=== PATIENT | male | born 1950 | race Caucasian/White ===

== ENCOUNTER → 2019-12-25 14:04 | Outpatient (BNVA) | payer MEDICARE, SELFPAY | PROVIDERS: Family Provider Internal Medicine; PCP Internal Medicine; Visit Provider Nurse Practitioner Family | DX: J44.1 Chronic obstructive pulmonary disease with (acute) exacerbation (principal) | CPT/HCPCS: 71046 ==

== ENCOUNTER 2020-01-01 09:50 | Outpatient (CLI) | payer MEDICARE, SELFPAY ==
[2020-01-01 11:43] LABS: Basophils % 0.3 %; Eosinophils % 0.3 %; Hematocrit 41.6 % (42.0-52.0); Hemoglobin 13.2 g/dL (11.7-16.6); Lymphocytes # 0.8 10^3/uL (0.8-4.8); Lymphocytes % 9.2 %; Mean Corpuscular HGB Conc 31.7 g/dL (30.0-36.0); Mean Corpuscular Hemoglobin 27.4 pg (28.0-34.0); Mean Corpuscular Volume 86.3 fL (80-94); Monocytes # 1.2 10^3/uL (0.2-0.9); Monocytes % 13.1 %; Neutrophils # 6.3 10^3/uL (1.8-7.7); Neutrophils % 69.6 %; Nucleated Red Blood Cells % 0 %; Platelet Count 290 10^3/cmm (130-400); Red Blood Count 4.82 10^6/uL (4.1-5.3); White Blood Count 9.1 10^3/uL (4.0-10.0)
[2020-01-01 12:20] LABS: Slide Review Slide Review Perform
[2020-01-01 12:22] LABS: Absolute Segmented Neutrophil 5.5 10/cmm (1.6-7.1); Band Neutrophils Absolute 0.7 10^3/cmm (0.0-1.2); Basophils Absolute 0.1 10^3/cmm (0.0-0.2); Giant Platelets Trace; Lymphocytes 15 %; Platelet Estimate Normal (Normal); Segmented Neutrophils 61 %; Total Cells Counted 100 (0-100)
[2020-01-01 13:07] LABS: Ferritin 34 ng/mL (30-400); Iron 44 ug/dL (59-158); Percent Saturation 14.5 % (20-50); Total Iron Binding Capacity 302 mcg/dl; Unsaturated Iron Binding 258 ug/dL (112-347); Vitamin B12 467 pg/mL (232-1245)
== END 2020-01-01 09:51 | disposition home or self-care (01) ==
LOC: ONCMED 14:02
PROVIDERS: Family Provider Internal Medicine; PCP Internal Medicine; Visit Provider Internal Medicine Hematology & Oncology
DX: D50.9 Iron deficiency anemia, unspecified (principal)
CPT/HCPCS: 82607; 82728; 83540; 83550; 85007; 85025

== ENCOUNTER 2020-01-02 09:05 | Outpatient (CLI) | payer MEDICARE, SELFPAY ==
--- NOTE | 2020-01-02 11:24 | ONC FU_ITS ---
Dr. Guerin follow up note Patient: Mihai Jones Unit #: [id number]: 1950 Dicatated By: Pa Guerin M.D.Date of Visit:Jan 02, 2020 Onc Med Follow-up/Prog Note History of Present Illness: Mr. Mihai Jones , 69-year-old gentleman with long-standing history of anemia. As as per Mr. Jones when he was 17-year-old when he passed out while throwing up coffee-ground material and also noticed black tarry stools. he did require blood transfusion and underwent 'stomach surgery at age 19 and since then he had issues with adhesions and a has been taking B12 supplements, off and on problem with indigestion and digestion He underwent colonoscopy year ago at [facility] and he was told everything was normal and he will return to clinic for next colonoscopy in 10 years. s/p 2 doses of Injectafer With excellent response And single dose Injectafer infusion on 03/24/2019 Came for follow-up, denies any specific complaints except generalized weakness and fatigue, and not gaining weight., No melena or hematochezia, no nausea or vomiting, no jaundice, no hemoptysis or hematemesis. Smoke about pack to 2 packs a day. No peripheral numbness.no fever or chills, no night sweats . Medications: Depakote ER 1 (500 mg) Tablet SR 24 HR Oral b.i.d., Gabapentin 1 (300 mg) Capsule Oral t.i.d., Lisinopril 1 (20 mg) Tablet Oral daily, Naproxen 1 (500 mg) Tablet Oral b.i.d., Nortriptyline HCl 1 Capsule (of 25 mg) Oral at bedtime, Pristiq 1 (100 mg) Tablet SR 24 HR Oral daily, Tamsulosin HCl 1 (0.4 mg) Capsule Oral at bedtime Allergies: No Known Allergies. Review of Systems: Constitutional - Appetite is poor and weight is decreasing. No fever, chills. Patient has occasional hot flashes and night sweats. Energy level is poor, ENMT - No sinus congestion/drainage. No mouth sores. No sore throat or difficulty swallowing, Hematologic/Lymphatic - No abnormal bleeding. Patient states he bruises very easily, Respiratory - Shortness of breath with exertion. Nonproductive cough. No pleuritic pain or hemoptysis, Cardiovascular - No angina pain. No palpitations, Gastrointestinal - No nausea or vomiting. Occasional heartburn or acid reflux. Occasional diarrhea, no constipation. No blood in the stool or black stools, Genitourinary (M) - No dysuria or hematuria. No urinary frequency. No urgency or incontinence, Musculoskeletal - Pt reports back pain, Integumentary - No skin complaints today, Neurologic - No headache, occasional dizziness upon rising. No numbness/paresthesias or other focal neurologic symptoms, Psychiatric - No anxiety or depression. No insomnia. Vital Signs: Vitals are not available for this patient. Performance Status: 0 - Fully active, able to carry on all predisease activities without restrictions. (ECOG) Physical Examination: ENMT - . No oral exudates, ulcers, masses, thrush or mucositis. Oropharynx clear. Tongue normal, Respiratory - Lungs are clear to auscultation without rhonchi or wheezing, Cardiovascular - Regular rate and rhythm of heart, Abdomen - Non-tender, non-distended, Good bowel sounds. No guarding or rebound tenderness. No pulsatile masses, Extremities - no edema. Lab/Imaging: Test performed on Jan 01, 2020 09:50 Ferritin 34 ng/mL Iron 44 ug/dL Vitamin B12 467 pg/mL UIBC 258 ug/dL WBC 9.1 10 3/uL Manual Bands % 8.0 % RBC 4.82 10 6/uL HGB 13.2 g/dL Manual Lymphs % 15 % HCT 41.6 % Manual Monos % 11.0 % MCV 86.3 fL MCH 27.4 pg Manual Basos % 1.0 % MCHC 31.7 g/dL Metamyelocytes % 2.0 % RDW 14.0 % Myelocytes % 2.0 % Platelet Count 290 10 3/cmm MPV 11.0 fL Neutrophils 6.3 10 3/uL Lymphocytes 0.8 10 3/uL Monocytes 1.2 10 3/uL Eosinophils 0.0 10 3/uL Basophils 0.0 10 3/uL Neutrophil % 69.6 % Lymphocyte % 9.2 % Monocyte % 13.1 % Eosinophil % 0.3 % Basophils % 0.3 % CBC Slide Review Slide Review Perform Manual Bands Abs 0.7 10 3/cmm Manual Monocytes Abs 1.0 10 3/cmm Manual Basophils Abs 0.1 10 3/cmm Test performed on Sep 05, 2019 10:04 % Iron Saturation 21.7 % Impression: 1. 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 Weight loss probably due to malabsorption or dumping syndrome, advised small meals but more ofte 3, COPD, heavy smoking Plan: Discussed with patient regarding his labs white blood count 9.1 hemoglobin 13.2 crit 41.6 platelets 290,000 MCV 86.3 ferritin 34 iron 44 vitamin B12 467 Clinically, patient is doing well with no new signs symptoms his follow-up lab shows hemoglobin still in normal range and iron on the low side of normal range. Patient is a heavy smoker, has possibility of secondary polycythemia due to smoking along with iron deficiency due to malabsorption due to subtotal gastrectomy At this point his hemoglobin in normal range and iron is stable the lower side of normal will continue to monitor if there is a drop in his hemoglobin we'll consider Injectafer otherwise continue to monitor patient is on sublingual B12 supplement at home. As far as not gaining weight is concern patient was advised to take small meals but more often and do calorie count,. Return to clinic in 3 months with CBC iron studies B12 and folic acid level. Patient was also advised to quit smoking and was offered any assistance he may need. Signed By: Pa Guerin M.D. <<Signature on File>>
== END 2020-01-02 09:06 | disposition home or self-care (01) ==
LOC: ONCMED 09:05
PROVIDERS: Family Provider Internal Medicine; PCP Nurse Practitioner; Visit Provider Internal Medicine Hematology & Oncology
DX: D50.9 Iron deficiency anemia, unspecified (principal); J44.9 Chronic obstructive pulmonary disease, unspecified; F17.210 Nicotine dependence, cigarettes, uncomplicated; K91.1 Postgastric surgery syndromes; K91.2 Postsurgical malabsorption, not elsewhere classified; Z79.899 Other long term (current) drug therapy; Z87.11 Personal history of peptic ulcer disease
CPT/HCPCS: G0463

== ENCOUNTER 2020-02-07 22:52 | Inpatient (IN) | payer MEDICARE, SELFPAY ==
[2020-02-07 22:53] VITALS: BP 164/126; PULSE 138; RESP 40; O2SAT 95; BMI 21.7
[2020-02-07 22:55] VITALS: TEMP 37.4
--- NOTE | 2020-02-07 23:03 | XRR_ITS ---
PROCEDURE INFORMATION: Exam: XR Chest, 1 View Exam date and time: 02/07/2020 11:05 PM Age: 69 years old Clinical indication: Dyspnea; Additional info: SOB TECHNIQUE: Imaging protocol: XR of the chest Views: 1 view. COMPARISON: CR XR chest 2V* [id number] 12/25/2019 2:04 PM FINDINGS: Lungs: There are increased interstitial markings present bilaterally, an interstitial pneumonitis or bronchitis cannot be excluded. Pleural space: Unremarkable. No pleural effusion. No pneumothorax. Heart/Mediastinum: Unremarkable. No cardiomegaly. Bones/joints: Status post total left shoulder replacement. Degenerative changes seen within the right glenohumeral joint. XR/XR chest 1V portable [id number] IMPRESSION: There are some increased interstitial markings present bilaterally, findings could represent an interstitial pneumonitis or bronchitis .
--- NOTE | 2020-02-07 23:04 | ECG_ITS ---
Measurements Intervals [place] Rate: 132 P: [place]: 0 QRS: 27 QRSD: 78 T: 43 QT: 310 QTc: 460 Artifact cannot interpret the exam Electronically Signed On 02-08-2020 21:10:51 CDT by Floyd Palomo M.D. [id number]
--- NOTE | 2020-02-07 23:06 | W.ED.SOB ---
HPI - SOB/Dyspnea General: Chief Complaint: Shortness of Breath/Dyspnea Stated Complaint: RESP DIS Time Seen by Provider: 02/07/20 22:53 History of Present Illness: MD elicited complaint: shortness of breath and cough Pertinent past history: COPD Onset (ago): day(s) Context: recent illness Timing: constant and progressively worsening Severity: severe Exacerbating factors: exertion Relieving factors: nothing Known history of: COPD Associated symptoms: Reports chest congestion, cough and fever(s); Deny chest pain, dizziness or vomiting Treatment prior to arrival: oxygen and bronchodilator Review of Systems Const: Reports: fever Eyes: Denies: change in vision or blurry vision ENMT: Denies: painful swallowing, swelling of lips/tongue, bleeding gums, post nasal drip or facial/sinus pain Card: Denies: chest pain Resp: Reports: shortness of breath, wheezing and chest congestion GI: Denies: vomiting : Denies: difficulty urinating or blood in urine Musc: Denies: neck pain or back pain Skin/Breast: Denies: rash, itching or redness Neuro: Denies: headache, dizziness or vertigo Psych: Denies: anxiety PFSH ED PFSH: Social History (Updated 12/25/19 @ 13:37 by Ara Florence LPN) Smoking and tobacco status: current every day smoker cigarettes Packs smoked per day: 0.5 Alcohol intake: never Lives independently: Yes Household members: significant other Housing: House Marital status: Single History of recent travel: No Physical Exam Const: GENERAL APPEARANCE: well developed ORIENTATION/CONSCIOUSNESS: Yes oriented to person, Yes oriented to place and Yes oriented to time HENMT: COMMON NORMALS: normocephalic, external ears normal and external nose normal HEAD & SCALP: normocephalic FACE & SINUS: normal facial exam NOSE: external nose normal and no nasal discharge EXTERNAL EAR: Yes external ears normal MOUTH: tongue normal Eye: COMMON NORMALS: PERRL, EOMs intact bilaterally and conjunctivae normal EYELID: eyelids normal CONJUNCTIVA: Yes conjunctivae normal PUPIL: Yes PERRL Neck/C-Spine: COMMON NORMALS: full ROM GENERAL: No tracheal deviation Chest: COMMONS NORMALS: inspection of chest normal CHEST: No tenderness Resp: EFFORT & INSPECTION: Yes tachypneic, No respiratory distress, No retractions, Yes uses accessory muscles and No tracheal deviation AUSCULTATION: no rales, rhonchi, wheezes and diminished lung sounds Cardio: COMMON NORMALS: regular rate and regular rhythm RATE: regular rate RHYTHM: regular rhythm HEART SOUNDS: no murmurs PERIPHERAL PULSES: radial pulses present GI: INSPECTION: No abdominal distension AUSCULTATION: No hyperactive bowel sounds and No hypoactive bowel sounds PALPATION: No guarding and No rigid PERCUSSION: no dullness to percussion and no tympanic to percussion Neuro: SENSORIUM/ORIENTATION: Yes oriented to person, Yes oriented to place and Yes oriented to time Psych: COMMON NORMALS: mental status grossly normal Skin: COMMON NORMALS: no rashes or lesions noted GENERAL SKIN EXAM: no rashes or lesions noted Course Vital Signs: Vital signs: Vital Signs Temperature 99.4 F 02/07/20 22:55 Pulse Rate 120 H 02/08/20 00:20 Respiratory Rate 26 H 02/08/20 00:20 Blood Pressure 158/100 02/08/20 00:20 Pulse Oximetry 93 02/08/20 00:20 MDM - SOB/Dyspnea MDM Narrative: Medical decision making narrative: 69-year-old male with increasing shortness of breath over the past couple of weeks actually. He was much worse yesterday and today. He complains of intermittent fevers. He has been coughing. Mild production of green sputum. He was seen in the clinic last week, and tested for novel coronavirus. He was told this was negative. He has been quarantining at home. He got no relief despite 10 breathing treatments or so today at home. He presents in respiratory distress. He was oxygenating on nasal cannula oxygen, but his respirations were in the 40s, and his pH was 7.37. He was placed on BiPAP. His chest x-ray shows some increased vascular congestion. He also has bilateral interstitial infiltrates without cardiomegaly or effusion. His white blood cell count is 14.7. Lactic acid is pending. He is doing well on BiPAP, and after a DuoNeb treatment here. He will go to the ICU. Because of the potential of false negative novel coronavirus testing, he will be tested again. Lab Data: Labs: Lab Results 02/07/20 02/07/20 02/07/20 Range/Units 23:20 23:20 23:20 WBC 14.7 H (4.0-10.0) 10^3/ uL RBC 4.91 (4.1-5.3) 10^6/u L Hgb 13.3 (11.7-16.6) g/dL Hct 41.2 L (42.0-52.0) % MCV 83.9 (80-94) fL MCH 27.1 L (28.0-34.0) pg MCHC 32.3 (30.0-36.0) g/dL RDW 14.5 (12.1-15.1) % Plt Count 224 (130-400) 10^3/c mm MPV 11.0 H (7.4-10.4) fL Neut % (Auto) 77.5 % Lymph % (Auto) 1.3 % [place] % (Auto) 15.1 % Eos % (Auto) 1.2 % Baso % (Auto) 0.1 % Neut # (Auto) 11.4 H (1.8-7.7) 10^3/u L Lymph # (Auto) 0.2 L (0.8-4.8) 10^3/u L [place] # (Auto) 2.2 H (0.2-0.9) 10^3/u L Eos # (Auto) 0.2 (0.0-0.8) 10^3/u L Baso # (Auto) 0.0 (0.0-0.1) 10^3/u L Nucleated RBC % (a uto) 0 % Nucleated RBCs # 0.0 /100WBC Sodium 135 L (136-145) mmol/L Potassium 4.0 (3.5-5.1) mmol/L Chloride 97 L (98-107) mmol/L Carbon Dioxide 22 (22-29) mmol/L Anion Gap 20.0 H (5-19) BUN 16 (8-23) mg/dL Creatinine 0.6 L (0.7-1.2) mg/dL GFR Calculation 134.4 H (90-130) mL/min Glucose 121 H (65-115) mg/dL Calculated Osmolal ity 278 L (285-295) mOsm/k g Calcium 9.1 (8.5-10.5) mg/dL Total Bilirubin 0.3 (0.15-1.2) mg/dL AST 26 (0-40) U/L ALT 14 (0-41) U/L Alkaline Phosphata se 125 (40-130) IU/L Troponin T Baselin e 175 H* (0-15) ng/mL NT-Pro-B Natriuret Pep 703 H (0-125) pg/mL Total Protein 7.5 (6.6-8.7) g/dL Albumin 3.8 (3.5-5.2) g/dL Globulin 3.7 (1.3-4.6) g/dL Influenza Type A A g (Negative) Influenza Type B A g (Negative) 02/07/20 Range/Units 23:36 WBC (4.0-10.0) 10^3/ uL RBC (4.1-5.3) 10^6/u L Hgb (11.7-16.6) g/dL Hct (42.0-52.0) % MCV (80-94) fL MCH (28.0-34.0) pg MCHC (30.0-36.0) g/dL RDW (12.1-15.1) % Plt Count (130-400) 10^3/c mm MPV (7.4-10.4) fL Neut % (Auto) % Lymph % (Auto) % [place] % (Auto) % Eos % (Auto) % Baso % (Auto) % Neut # (Auto) (1.8-7.7) 10^3/u L Lymph # (Auto) (0.8-4.8) 10^3/u L [place] # (Auto) (0.2-0.9) 10^3/u L Eos # (Auto) (0.0-0.8) 10^3/u L Baso # (Auto) (0.0-0.1) 10^3/u L Nucleated RBC % (a uto) % Nucleated RBCs # /100WBC Sodium (136-145) mmol/L Potassium (3.5-5.1) mmol/L Chloride (98-107) mmol/L Carbon Dioxide (22-29) mmol/L Anion Gap (5-19) BUN (8-23) mg/dL Creatinine (0.7-1.2) mg/dL GFR Calculation (90-130) mL/min Glucose (65-115) mg/dL Calculated Osmolal ity (285-295) mOsm/k g Calcium (8.5-10.5) mg/dL Total Bilirubin (0.15-1.2) mg/dL AST (0-40) U/L ALT (0-41) U/L Alkaline Phosphata se (40-130) IU/L Troponin T Baselin e (0-15) ng/mL NT-Pro-B Natriuret Pep (0-125) pg/mL Total Protein (6.6-8.7) g/dL Albumin (3.5-5.2) g/dL Globulin (1.3-4.6) g/dL Influenza Type A A g Negative (Negative) Influenza Type B A g Negative (Negative) Critical Care Time Critical Care Time: Critical Care Time: Yes Total Critical Care Time: 40 Attestation: This case had a high probability of a clinically significant, sudden, or life threatening deterioration of this patient's condition which required my full and direct attention, intervention and personal management. Discharge Plan Discharge Condition: Good Prescriptions: No Action albuterol sulfate 2.5 mg /3 mL (0.083 %) solution for nebulization 2.5 mg INHALATION Q4H PRNRF: 0 tamsulosin [Flomax] 0.4 mg capsule 0.4 mg PO DAILY RF: 0 lisinopril 20 mg tablet 20 mg PO DAILY RF: 0 naproxen [Naprosyn] 500 mg tablet 500 mg PO BID RF: 0 desvenlafaxine succinate [Pristiq] 100 mg tablet extended release 24 hr 100 mg PO DAILY RF: 0 gabapentin 300 mg capsule 300 mg PO TID 30 Days Qty: 90 RF: 5 Coding Level of Care Code ED Boiler Assistant Operator for Chg Fwd Exam Comprehensive
[2020-02-07 23:12] VITALS: PULSE 132; RESP 23; O2SAT 97
[2020-02-07] MEDS: ipratropium-albuterol 3 mL Neb INHALATION (23:12)
[2020-02-07 23:24] LABS: Basophils % 0.1 %; Eosinophils # 0.2 10^3/uL (0.0-0.8); Eosinophils % 1.2 %; Hematocrit 41.2 % (42.0-52.0); Hemoglobin 13.3 g/dL (11.7-16.6); Lymphocytes # 0.2 10^3/uL (0.8-4.8); Lymphocytes % 1.3 %; Mean Corpuscular HGB Conc 32.3 g/dL (30.0-36.0); Mean Corpuscular Hemoglobin 27.1 pg (28.0-34.0); Mean Corpuscular Volume 83.9 fL (80-94); Monocytes # 2.2 10^3/uL (0.2-0.9); Monocytes % 15.1 %; Neutrophils # 11.4 10^3/uL (1.8-7.7); Neutrophils % 77.5 %; Nucleated Red Blood Cells % 0 %; Platelet Count 224 10^3/cmm (130-400); Red Blood Count 4.91 10^6/uL (4.1-5.3); Red Cell Distribution Width 14.5 % (12.1-15.1); White Blood Count 14.7 10^3/uL (4.0-10.0)
[2020-02-07] MEDS: nitroglycerin 1 gm/inch oint Pkt 1 INCH TOPICAL (23:31)
[2020-02-07 23:54] VITALS: BP 153/99
[2020-02-08] VITALS (29 sets, daily range): BP systolic 139–181; BP diastolic 85–126; PULSE 84–127; RESP 14–26; TEMP 36.9–37.5; O2SAT 93–99
[2020-02-08 00:22] LABS: Alanine Aminotransferase 14 U/L (0-41); Albumin Level 3.8 g/dL (3.5-5.2); Alkaline Phosphatase 125 IU/L (40-130); Blood Urea Nitrogen 16 mg/dL (8-23); Calcium 9.1 mg/dL (8.5-10.5); Carbon Dioxide 22 mmol/L (22-29); Chloride 97 mmol/L (98-107); Globulin 3.7 g/dL (1.3-4.6); Glomerular Filtration Rate 134.4 mL/min (90-130); Glucose 121 mg/dL (65-115); NT Pro B Type Natriuretic Pept 703 pg/mL (0-125); Osmolality Calculated 278 mOsm/kg (285-295); Sodium 135 mmol/L (136-145); Total Bilirubin 0.3 mg/dL (0.15-1.2); Total Protein 7.5 g/dL (6.6-8.7)
[2020-02-08 00:26] LABS: Troponin(5th) Baseline 175 ng/mL (0-15)
[2020-02-08 00:28] LABS: Aspartate Amino Transferase 26 U/L (0-40)
[2020-02-08 00:35] LABS: Slide Review Slide Review Perform
[2020-02-08 00:49] LABS: Influenza A by IFA Negative (Negative); Influenza B by IFA Negative (Negative)
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
--- NOTE | 2020-02-08 01:04 | ECG_ITS ---
Measurements Intervals [place] Rate: 108 P: 68 [place]: 139 QRS: 37 QRSD: 73 T: 64 QT: 338 QTc: 454 SINUS TACHYCARDIA POSSIBLE LEFT ATRIAL ENLARGEMENT [-0.1mV P WAVE IN V1/V2] ABNORMAL RHYTHM ECG Compared to ECG 05/24/2018 10:05:29 Sinus rhythm no longer present Electronically Signed On 02-08-2020 21:14:05 CDT by Floyd Palomo M.D. [id number]
[2020-02-08 01:23] LABS: Troponin 5 2HR 211.3 ng/mL (0-15); Troponin 5 2HR Delta 36.3 ABS# (0-10)
[2020-02-08] MEDS: levofloxacin-dextrose 5 % 750 MG/150 ML PREMIX 150 MG IV (01:33)
--- NOTE | 2020-02-08 02:05 | CTR_ITS ---
PROCEDURE INFORMATION: Exam: CT Angiography Chest With Contrast Exam date and time: 02/08/2020 2:14 AM Age: 69 years old Clinical indication: Dyspnea; Additional info: Pe TECHNIQUE: Imaging protocol: Computed tomographic angiography of the chest with intravenous contrast. 3D rendering: MIP and/or 3D reconstructed images were created by the technologist. Total DLP: 491.52 mGy-cm Radiation optimization: All CT scans at this facility use at least one of these dose optimization techniques: automated exposure control; mA and/or kV adjustment per patient size (includes targeted exams where dose is matched to clinical indication); or iterative reconstruction. Contrast material: OMNI 350; Contrast volume: 95 ml; Contrast route: IV; COMPARISON: CR (CHEST, ) 02/07/2020 11:12 PM FINDINGS: Pulmonary arteries: Normal. No pulmonary emboli. Aorta: Unremarkable. No aortic aneurysm. No aortic dissection. Lungs: There is a background of centrilobular emphysema. There are mildly increased peribronchial markings present bilaterally and some linear opacities are seen in the lower hemithoraces. These findings may represent mild bronchitis. Some subtle septal markings are present bilaterally likely representing chronic pulmonary fibrosis. Superimposed interstitial pneumonitis cannot be entirely excluded. Pleural space: Unremarkable. No pneumothorax. No pleural effusion. Heart: Unremarkable. No cardiomegaly. No pericardial effusion. Lymph nodes: Unremarkable. No enlarged lymph nodes. Bones/joints: Status post total left shoulder replacement. Degenerative changes are seen within the right glenohumeral joint. There is severe compression of the T6 vertebral body, moderate compression of the T7 vertebral body, mild compression of the T8 vertebral body and moderate compression of T12 vertebral bodies likely secondary to the diffuse demineralization. Soft tissues: Unremarkable. Other findings: There is diffuse demineralization. CT/CT angio chest PE protcl [id number] IMPRESSION: 1. There is no evidence for pulmonary emboli. 2. Vertebral body fractures as described above likely secondary to diffuse demineralization. 3. Background of centrilobular emphysema. Probable mild pulmonary fibrosis present although a mild interstitial pneumonitis cannot be entirely excluded. Radiation Dose CTDIVOL = (mGy): DLP = 491.52 (mGy-cm)
[2020-02-08] MEDS: iohexol 350 mg/mL 100 mL Btl IV (02:26)
[2020-02-08] MEDS: metoprolol tartrate 1 mg/1 mL SDV 5 mL 5 MG IV (02:52)
[2020-02-08] MEDS: enalaprilat 1.25 mg/mL Inj IVP (04:22)
--- NOTE | 2020-02-08 04:57 | USCV_ITS ---
Mihai Jones Age: 69 Gender: M : 1950 Exam Date: 02/08/2020 17:16 Ordering Phys: Floyd Vivas MD Technologist: Citlaly Duffy [place]am Location[place] [facility] [place] [facility] [place] Indication: CHF BP: 151 / 93 HR: 99 Rhythm: Sinus Technical Quality: Suboptimal MEASUREMENTS (Male / Female) Normal Values M-MODE LV Diastolic Diameter MM 3.8 cm 4.2 - 5.9 / 3.9 - 5.3 cm LV Systolic Diameter MM 1.7 cm LV Ejection Fraction MM Teich 86.0 % IVS Diastolic Thickness MM 1.3 cm 0.6 - 1.0 / 0.6 - 0.9 cm IVS Systolic Thickness MM 1.9 cm LVPW Diastolic Thickness MM 1.5 cm 0.6 - 1.0 / 0.6 - 0.9 cm LVPW Systolic Thickness MM 2.0 cm FINDINGS Left Ventricle Normal left ventricular cavity size. Normal left ventricular systolic function. No regional wall motion abnormalities. Left ventricular ejection fraction is estimated at 60 %. Right Ventricle Normal right ventricular size. Right Atrium Normal right atrial size. Left Atrium Moderately increased left atrial size. Mitral Valve Severely thickened mitral valve. Severe mitral annular calcification. No mitral valve stenosis. Aortic Valve Moderate aortic valve calcification. Mild aortic valve stenosis, Tricuspid Valve Pulmonic Valve Pericardium Aorta CONCLUSIONS Please note that this is a limited study without Doppler data 1-Normal left ventricular cavity size. Normal left ventricular systolic function. No regional wall motion abnormalities. Left ventricular ejection fraction is estimated at 60 %. 2-Moderately increased left atrial size. 3-Severely thickened mitral valve. Severe mitral annular calcification. No mitral valve stenosis. 4-Moderate aortic valve calcification. Mild aortic valve stenosis,. 5-There is no pericardial effusion. . 6-Right atrial pressure is around 5 mm of mercury. 7-There are no prior echocardiogram studies to compare. Floyd Palomo MD (Electronically Signed) Final Date: 08 February 2020 19:50 S
--- NOTE | 2020-02-08 05:04 | ECG_ITS ---
Measurements Intervals [place] Rate: 123 P: 68 [place]: 149 QRS: 13 QRSD: 82 T: 56 QT: 298 QTc: [address] DEPRESSION [0.05+ mV ST DEPRESSION] Compared to ECG 05/24/2018 10:05:29 ST (T wave) deviation now present Sinus rhythm no longer present Electronically Signed On 02-08-2020 21:14:02 CDT by Floyd Palomo M.D. [email or web address]
[2020-02-08] MEDS: morphine 4 mg/mL SDV 1 mL 2 MG IVP ×3 (05:13→23:23)
[2020-02-08 05:16] LABS: ABG PCO2 41.2 mmHg (35-45); ABG PH Result 7.38 (7.35-7.45); Arterial Blood Gas Hematocrit 41.2 % (42-52); Base Excess ABG -1.2 mmol/L (-2.0-2.0); Blood Gas Allen Test Pos; Blood Gas Sample Site Radial, right; Blood Gas Sample Type Arterial; Oxygen Device BIPAP; PO2 ABG 97.4 mmHg (80.0-100.0)
[2020-02-08] MEDS: sodium chloride 0.9% 1,000 ML 75 ML IV (05:18)
[2020-02-08] MEDS: enoxaparin 60 mg/0.6 mL Syringe SUBCUT (05:18)
[2020-02-08] MEDS: levalbuterol 1.25 mg/3 mL Neb INHALATION ×3 (05:45→17:09)
[2020-02-08 06:03] LABS: Troponin 5 6HR 155.1 ng/mL (0-15); Troponin 5 6HR Delta -19.9 ng/L (0-12)
[2020-02-08] MEDS: gabapentin 300 mg Capsule PO ×3 (08:26→20:19)
[2020-02-08] MEDS: azithromycin 250 mg Tablet 500 MG PO (08:26)
[2020-02-08] MEDS: lisinopril 20 mg Tablet PO (08:26)
[2020-02-08] MEDS: tamsulosin 0.4 mg Capsule PO (08:27)
--- NOTE | 2020-02-08 10:34 | PM.PN ---
Subjective Subjective: Interval history: He is feeling better. Denies significant cough. Denies chest pain. Vitals/I&O/Wt Last Vital Signs Temp 98.8 F 02/08/20 08:00 Pulse 107 H 02/08/20 10:00 Resp 18 02/08/20 10:00 BP 157/98 02/08/20 10:00 Pulse Ox 95 02/08/20 10:00 02/07/20 02/08/20 02/08/20 22:59 06:59 14:59 Intake Total 150 / 150 30 / 30 Output Total 400 / 400 Balance 150 / 150 -370 / -370 Weight last 48 hrs Weight 53.977 kg Physical Exam Const: COMMON NORMALS: no apparent distress and oriented x3 HENMT: COMMON NORMALS: oropharynx normal Neck/C-Spine: COMMON NORMALS: no JVD Resp: COMMON NORMALS: normal respiratory effort AUSCULTATION: wheezes (mild) and diminished lung sounds Cardio: COMMON NORMALS: no JVD, regular rhythm, S1 normal heart sound, S2 normal heart sound and no murmurs RATE: tachycardic RHYTHM: regular rhythm HEART SOUNDS: S1 normal and S2 normal GI: COMMON NORMALS: normal to inspection, nondistended, normoactive bowel sounds, soft to palpation and non-tender PALPATION: Yes soft Extremity: COMMON NORMALS: no joint enlargement and no pedal edema Neuro: COMMON NORMALS: oriented x3 and moves all extremities Skin: COMMON NORMALS: no rashes or lesions noted GENERAL SKIN EXAM: no rashes or lesions noted Data : 02/07/20 23:20 02/07/20 23:20 Micro: Microbiology 02/08/20 08:00 Bacterial Antigens - Final Urine,Voided 02/08/20 06:49 Blood Culture - Preliminary Blood SPECIMEN COLLECTED A&P Assessment and plan (1) Community acquired pneumonia: With acute respiratory failure. Not normally on oxygen. Has been requiring BiPAP support. With some interstitial edema noted on imaging. At this time on Rocephin, azithromycin. Influenza negative. Pending COVID-19 assessment. Any attempt to wean down BiPAP. Follow culture results. No PE on CTA. Status: Acute (2) Acute exacerbation of chronic obstructive airways disease: Perhaps mild exacerbation. Does have mild wheezing. Will add Advair. Status: Acute (3) Sepsis: Status: Acute (4) Smoker: Status: Acute (5) Congestive heart failure: Pending assessment by TTE. Concern for possible contribution from congestive heart failure. Denies history of CHF or CAD. At this time will discontinue IV fluid. He does not have peripheral edema. He denies orthopnea. Apart from BNP elevation as well as mild interstitial edema does not have very many signs of CHF. BNP possibly could be elevated secondary to his chronic lung disease. There is elevation of troponin. Status: Acute (6) Troponin level elevated: Up to 175 at baseline, 211 2 hours and down to 155 at 6 hours. He does not have any chest pain. This may be nonischemic myocardial injury secondary to pneumonia, hypoxia due to the condition and his underlying chronic lung disease, at the same time cannot exclude entirely non-STEMI. At this time continue his therapeutic Lovenox, will add aspirin, beta-shira, statin. With suspicion for an ostium being on the low side for now we will not load him with Plavix. Status: Acute Additional A&P Information Chronic anemia: Hemoglobin stable at 13 Attestations Medical Necessity Statement*: Continue admission for assessment management of acute respiratory failure, pneumonia, mild COPD exacerbation, assessment for possible CHF. 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
[2020-02-08] MEDS: metoprolol tartrate 25 mg Tablet 12.5 MG PO (13:38)
[2020-02-08] MEDS: aspirin 325 mg Tablet PO (13:39)
[2020-02-08] MEDS: enoxaparin 60 mg/0.6 mL Syringe 50 MG SUBCUT (18:56)
[2020-02-08] MEDS: atorvastatin 40 mg Tablet PO (20:19)
[2020-02-08] MEDS: albuterol 8 gm MDI 1 PUFF INHALATION ×2 (20:20→23:26)
[2020-02-09] VITALS (31 sets, daily range): BP systolic 145–176; BP diastolic 74–108; PULSE 83–115; RESP 12–25; TEMP 37–37.3; O2SAT 91–100
[2020-02-09] MEDS: morphine 4 mg/mL SDV 1 mL 2 MG IVP ×3 (02:50→21:23)
[2020-02-09] MEDS: albuterol 8 gm MDI 1 PUFF INHALATION (03:31)
[2020-02-09] MEDS: enoxaparin 60 mg/0.6 mL Syringe 50 MG SUBCUT ×2 (05:03→17:42)
[2020-02-09 05:12] LABS: Basophils % 0.2 %; Eosinophils % 0.1 %; Hematocrit 43.2 % (42.0-52.0); Hemoglobin 12.9 g/dL (11.7-16.6); Lymphocytes # 0.5 10^3/uL (0.8-4.8); Lymphocytes % 4.1 %; Mean Corpuscular HGB Conc 29.9 g/dL (30.0-36.0); Mean Corpuscular Hemoglobin 25.6 pg (28.0-34.0); Mean Corpuscular Volume 85.7 fL (80-94); Mean Platelet Volume 11.2 fL (7.4-10.4); Monocytes # 2.2 10^3/uL (0.2-0.9); Monocytes % 18.1 %; Neutrophils # 8.8 10^3/uL (1.8-7.7); Neutrophils % 72.4 %; Nucleated Red Blood Cells % 0 %; Platelet Count 259 10^3/cmm (130-400); Red Blood Count 5.04 10^6/uL (4.1-5.3); Red Cell Distribution Width 14.6 % (12.1-15.1); White Blood Count 12.2 10^3/uL (4.0-10.0)
[2020-02-09 05:19] LABS: Anion Gap 19.6 (5-19); Blood Urea Nitrogen 25 mg/dL (8-23); Calcium 9.1 mg/dL (8.5-10.5); Carbon Dioxide 24 mmol/L (22-29); Chloride 99 mmol/L (98-107); Glomerular Filtration Rate 134.4 mL/min (90-130); Glucose 80 mg/dL (65-115); Osmolality Calculated 282 mOsm/kg (285-295); Potassium 4.6 mmol/L (3.5-5.1); Sodium 138 mmol/L (136-145)
[2020-02-09 06:09] LABS: Slide Review Slide Review Perform
--- NOTE | 2020-02-09 08:00 | XR_ITS ---
WS: [id number] CHEST XRAY TECHNIQUE: Portable chest. CLINICAL INFORMATION: hypoxia COMPARISON: February 07, 2020 FINDINGS: Heart: Normal cardiac silhouette. Lungs: Chronic emphysematous changes. No acute pulmonary infiltrates. No focal pneumonia. Bones: Postoperative changes left TSA. Surgical clips at the GE junction. XR/XR chest 1V portable [id number] IMPRESSION: Moderate chronic emphysematous changes. No acute-appearing pulmonary infiltrate s.
[2020-02-09] MEDS: ipratropium-albuterol 3 mL Neb INHALATION ×5 (08:29→23:05)
[2020-02-09] MEDS: budesonide 0.5 mg/2 mL Neb 0.25 MG INHALATION (08:29)
--- NOTE | 2020-02-09 08:39 | PM.PN ---
Subjective Subjective: Interval history: He is feeling about the same today. He denies any pain. He is coughing very little. Denies any phlegm production. Vitals/I&O/Wt Last Vital Signs Temp 98.5 F 02/08/20 19:03 Pulse 108 H 02/09/20 08:38 Resp 25 H 02/09/20 08:34 BP 175/98 02/09/20 06:00 Pulse Ox 96 02/09/20 08:37 02/08/20 02/09/20 02/09/20 22:59 06:59 14:59 Intake Total 444 / 534 Balance 444 / 134 Weight last 48 hrs Weight 53.977 kg Physical Exam Const: COMMON NORMALS: no apparent distress and oriented x3 OTHER: BiPAP on HENMT: COMMON NORMALS: oropharynx normal Neck/C-Spine: COMMON NORMALS: no JVD Resp: COMMON NORMALS: normal respiratory effort AUSCULTATION: wheezes (mild on the right) and diminished lung sounds Cardio: COMMON NORMALS: no JVD, regular rhythm, S1 normal heart sound, S2 normal heart sound and no murmurs RATE: tachycardic RHYTHM: regular rhythm HEART SOUNDS: S1 normal and S2 normal GI: COMMON NORMALS: normal to inspection, nondistended, normoactive bowel sounds, soft to palpation and non-tender PALPATION: Yes soft Extremity: COMMON NORMALS: no joint enlargement and no pedal edema Neuro: COMMON NORMALS: oriented x3 and moves all extremities Skin: COMMON NORMALS: no rashes or lesions noted GENERAL SKIN EXAM: no rashes or lesions noted Data : 02/09/20 04:39 02/09/20 04:39 Micro: Microbiology 02/08/20 06:49 Blood Culture - Preliminary Blood NEGATIVE TO DATE 02/08/20 08:00 Bacterial Antigens - Final Urine,Voided A&P Assessment and plan (1) Community acquired pneumonia: Oxygenation is stable, and has not worsened, however still has been requiring BiPAP, with some difficulty weaning. This morning his COVID-19 testing is negative. We will go ahead and switch him to nebulizer treatments with duo nebs, and switch Advair to budesonide. Repeat chest x-ray this morning. Follow-up echocardiogram. With acute respiratory failure. Not normally on oxygen but when asked says that he has been trying to get oxygen. Emphysema on CTA. Also probable mild pulmonary fibrosis. Influenza negative. Sputum culture if able to provide. Follow culture results. Discussed with him in case not responding to treatment for acute condition pneumonia/pneumonitis, with suspected interstitial process would benefit from follow-up with pulmonology. He is in agreement with plan. Status: Acute (2) Acute exacerbation of chronic obstructive airways disease: Perhaps mild exacerbation. Does have mild wheezing. Caps Status: Acute (3) Sepsis: Status: Acute (4) Smoker: Status: Acute (5) Congestive heart failure: Pending assessment by TTE. Concern for possible contribution from congestive heart failure. Denies history of CHF or CAD. IVF were discontinued. He does not have peripheral edema. He denies orthopnea. Apart from BNP elevation as well as mild interstitial edema does not have very many signs of CHF. BNP possibly could be elevated secondary to his chronic lung disease. There is elevation of troponin. Status: Acute (6) Troponin level elevated: Up to 175 at baseline, 211 2 hours and down to 155 at 6 hours. He does not have any chest pain. This may be nonischemic myocardial injury secondary to pneumonia, hypoxia due to the condition and his underlying chronic lung disease, at the same time cannot exclude entirely non-STEMI. At this time continue his therapeutic Lovenox, will add aspirin, beta-shira, statin. Appreciate cardiology assessment. Status: Acute Additional A&P Information Chronic anemia: Hemoglobin stable at 13 Attestations Medical Necessity Statement*: Continue admission for assessment and management of respiratory failure. 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
[2020-02-09 08:51] LABS: Coronavirus Lab Test PTC NOT DETECTED
[2020-02-09] MEDS: cefTRIAXone 1,000 MG in sodium chloride 0.9% (plus) 50 ML 100 MG IV (09:53)
[2020-02-09] MEDS: aspirin 325 mg Tablet PO (09:53)
[2020-02-09] MEDS: azithromycin 250 mg Tablet 500 MG PO (09:53)
[2020-02-09] MEDS: lisinopril 20 mg Tablet PO (09:53)
[2020-02-09] MEDS: tamsulosin 0.4 mg Capsule PO (09:53)
[2020-02-09] MEDS: gabapentin 300 mg Capsule PO ×3 (09:54→21:23)
[2020-02-09] MEDS: metoprolol tartrate 25 mg Tablet 12.5 MG PO ×2 (11:15→17:41)
[2020-02-09] MEDS: hyDRALAzine 20 mg/mL INJ 1 mL 5 MG IVP (11:28)
--- NOTE | 2020-02-09 11:58 | PC.NURSE ---
ANXIETY W/ BIPAP OFF. PT BECOMES VERY ANXIOUS WHEN BIPAP IS OFF. CALLED ME IN TO ROOM TO ASK IF I CHANGED ANY OF THE SETTINGS ON HIS BIPAP WHEN I WAS LAST IN THERE. REASSURED PT THAT I DID NOT CHANGE ANY SETTINGS
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
[2020-02-09] MEDS: ALPRAZolam 0.25 mg Tablet PO (17:41)
[2020-02-09] MEDS: amlodipine 5 mg Tablet PO (18:14)
[2020-02-09] MEDS: budesonide 0.5 mg/2 mL Neb INHALATION (19:34)
[2020-02-09] MEDS: atorvastatin 40 mg Tablet PO (21:23)
[2020-02-10] VITALS (25 sets, daily range): BP systolic 122–172; BP diastolic 68–97; PULSE 78–106; RESP 16–23; TEMP 36.4–36.8; O2SAT 90–98
[2020-02-10] MEDS: morphine 4 mg/mL SDV 1 mL 2 MG IVP ×2 (01:03→04:30)
[2020-02-10] MEDS: ipratropium-albuterol 3 mL Neb INHALATION ×6 (03:25→23:48)
[2020-02-10] MEDS: enoxaparin 60 mg/0.6 mL Syringe 50 MG SUBCUT (05:16)
[2020-02-10 05:28] LABS: Basophils # 0.1 10^3/uL (0.0-0.1); Basophils % 0.8 %; Eosinophils % 0.2 %; Hematocrit 57.2 % (42.0-52.0); Hemoglobin 18.2 g/dL (11.7-16.6); Lymphocytes # 0.4 10^3/uL (0.8-4.8); Lymphocytes % 5.4 %; Mean Corpuscular HGB Conc 31.8 g/dL (30.0-36.0); Mean Corpuscular Hemoglobin 26.4 pg (28.0-34.0); Mean Corpuscular Volume 82.9 fL (80-94); Mean Platelet Volume 11.7 fL (7.4-10.4); Monocytes # 0.6 10^3/uL (0.2-0.9); Monocytes % 9.3 %; Neutrophils # 4.6 10^3/uL (1.8-7.7); Neutrophils % 71.1 %; Nucleated Red Blood Cells % 0 %; Platelet Count 112 10^3/cmm (130-400); Red Cell Distribution Width 15.9 % (12.1-15.1); White Blood Count 6.4 10^3/uL (4.0-10.0)
[2020-02-10 05:31] LABS: Albumin Level 3.6 g/dL (3.5-5.2); Alkaline Phosphatase 143 IU/L (40-130); Anion Gap 22.9 (5-19); Blood Urea Nitrogen 21 mg/dL (8-23); Carbon Dioxide 23 mmol/L (22-29); Chloride 95 mmol/L (98-107); Glomerular Filtration Rate 165.9 mL/min (90-130); Glucose 94 mg/dL (65-115); Osmolality Calculated 278 mOsm/kg (285-295); Potassium 4.9 mmol/L (3.5-5.1); Sodium 136 mmol/L (136-145); Total Bilirubin 0.5 mg/dL (0.15-1.2); Total Protein 6.6 g/dL (6.6-8.7)
[2020-02-10 06:09] LABS: Alanine Aminotransferase 20 U/L (0-41); Aspartate Amino Transferase 41 U/L (0-40)
[2020-02-10 06:12] LABS: Slide Review Slide Review Perform
--- NOTE | 2020-02-10 07:38 | PM.PN ---
Subjective Subjective: Interval history: Mihai feels a little better this morning. He seems less short of breath. He is now on nasal cannula. No chest pain. He wants to know when he can go home. Heart rate is running about 100 bpm in sinus rhythm. Blood pressure slightly high. Vitals/I&O/Wt Last Vital Signs Temp 99.1 F 02/09/20 11:56 Pulse 83 02/10/20 06:00 Resp 18 02/10/20 06:00 BP 124/69 02/10/20 06:00 Pulse Ox 94 02/10/20 06:00 02/09/20 02/10/20 02/10/20 22:59 06:59 14:59 Intake Total 360 / 470 Output Total 500 / 1050 200 / 1250 Balance -140 / -580 -200 / -780 Physical Exam Narrative: EXAM NARRATIVE: GENERAL: In general he is comfortable HEENT: Exam within normal limits. NECK: Supple without jugular vein distention. The carotid upstroke is normal without bruits. BACK: Exam normal. LUNGS: Clear. Decreased breath sounds bilaterally. HEART: Regular rate and rhythm. ABDOMEN: Benign without organomegaly or tenderness. EXTREMITIES: No edema. NEUROLOGIC: Exam normal. SKIN: Unremarkable. Data : 02/10/20 04:15 02/10/20 04:15 Micro: Microbiology 02/08/20 06:49 Blood Culture - Preliminary Blood NEGATIVE TO DATE A&P Assessment and plan (1) Troponin level elevated: Status: Acute (2) Community acquired pneumonia: Status: Acute (3) Acute exacerbation of chronic obstructive airways disease: Status: Acute (4) Smoker: Status: Acute (5) Essential hypertension: Status: Acute Additional A&P Information I will increase his metoprolol to 25 mg twice a day. The heart rate elevation is related to his underlying lung disease. For now we will continue to treat him medically. I would decrease the Lovenox to once daily. I am reluctant to increase the beta-shira anymore given the severity of his underlying lung disease. As it pertains to a stress test I do not feel compelled to perform 1 while he is in the hospital necessarily. He is not having any chest pain. This could be done as an outpatient. However if he will be here for several more days a Felicitas dsouza is in order. 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
[2020-02-10] MEDS: budesonide 0.5 mg/2 mL Neb INHALATION ×2 (08:30→20:10)
--- NOTE | 2020-02-10 08:39 | P.PN_ITS ---
Subjective Subjective: Interval history: His oxygen requirement has not improved by very much, however, subjectively he reports he is feeling better. He was switched to high flow cannula last night. He denies chest pain or pressure. Does not have much cough. Vitals/I&O/Wt Last Vital Signs Temp 99.1 F 02/09/20 11:56 Pulse 100 02/10/20 08:34 Resp 20 H 02/10/20 08:30 BP 124/69 02/10/20 06:00 Pulse Ox 94 02/10/20 08:30 02/09/20 02/10/20 02/10/20 22:59 06:59 14:59 Intake Total 360 / 470 Output Total 500 / 1050 200 / 1250 Balance -140 / -580 -200 / -780 Physical Exam Const: COMMON NORMALS: no apparent distress and oriented x3 OTHER: Heated high flow. Somewhat hard of hearing. Not in discomfort. Pleasant, conversant. HENMT: COMMON NORMALS: oropharynx normal Neck/C-Spine: COMMON NORMALS: no JVD Chest: OTHER: Barrel chest. Resp: COMMON NORMALS: normal respiratory effort AUSCULTATION: wheezes (mild on the right) and diminished lung sounds Cardio: COMMON NORMALS: no JVD, regular rhythm, S1 normal heart sound, S2 normal heart sound and no murmurs RATE: tachycardic RHYTHM: regular rhythm HEART SOUNDS: S1 normal and S2 normal GI: COMMON NORMALS: normal to inspection, nondistended, normoactive bowel sounds, soft to palpation and non-tender PALPATION: Yes soft Extremity: COMMON NORMALS: no joint enlargement and no pedal edema Neuro: COMMON NORMALS: oriented x3 and moves all extremities Skin: COMMON NORMALS: no rashes or lesions noted GENERAL SKIN EXAM: no rashes or lesions noted Data : 02/10/20 04:15 02/10/20 04:15 Micro: Microbiology 02/08/20 06:49 Blood Culture - Preliminary Blood NEGATIVE TO DATE A&P Assessment and plan (1) Community acquired pneumonia: Atypical pneumonia. Subjectively he is improving, although still requiring 30 L high flow nasal cannula. Does not have significant cough. He is afebrile. Leukocytosis has resolved. Was having difficulty weaning off of BiPAP, yesterday was switched to heated hi gh flow nasal cannula. Started on Solu-Medrol. Oxygenation is stable, and has not worsened, however still has been requiring BiPAP, with some difficulty weaning. COVID-19 testing is negative. Switched to nebulizer treatment, but does not. With acute respiratory failure. Not normally on oxygen but when asked says that he has been trying to get oxygen. Emphysema on CTA. Also probable mild pul monary fibrosis. Influenza negative. Sputum culture if able to provide. Follow culture results. Discussed with him in case not responding to treatment for acute condition pneumonia/pneumonitis, with suspected interstitial process would benefit from follow-up with pulmonology. He is in agreement with plan. Initiate PT. Status: Acute (2) Acute exacerbation of chronic obstructive airways disease: Perhaps mild exacerbation. Does have mild wheezing. Continue continue breathing treatments, antibiotics, steroid, oxygen support. Status: Acute (3) Sepsis: Improving. Leukocytosis resolved. Some intermittent persistent tachyc ardia. Status: Acute (4) Smoker: Continue to encourage cessation. Status: Acute (5) Congestive heart failure: CHF is considered unlikely per cardiology. Echocardiogram interpretation not yet available. IVF were discontinued. He does not have peripheral edema. He denies orthopnea. Apart from BNP elevation as well as mild interstitial edema does not have very many signs of CHF. BNP likely elevated secondary to his chronic lung disease. There is elevation of troponin. Status: Inactive (6) Troponin level elevated: Suspected secondary to mismatch and demand and supply. Low probability of myocardial ischemia. Appreciate cardiology assessment. Status: Acute Additional A&P Information Chronic anemia: Hemoglobin stable at 13 Attestations Medical Necessity Statement*: Continue admission for assessment of management of acute hypoxic respiratory failure. Coding Level of Care Code Acute Site Coordinator for Priscilla Tavares Diagnoses Community acquired pneumonia J18.9 Acute exacerbation of chronic obstructive airways disease J44.1 Sepsis A41.9 Smoker F17.200 Congestive heart failure I50.9 Troponin level elevated R79.89
[2020-02-10] MEDS: gabapentin 300 mg Capsule PO ×3 (09:04→22:07)
[2020-02-10] MEDS: metoprolol tartrate 25 mg Tablet 12.5 MG PO ×2 (09:04→18:14)
[2020-02-10] MEDS: azithromycin 250 mg Tablet 500 MG PO (09:04)
[2020-02-10] MEDS: cefTRIAXone 1,000 MG in sodium chloride 0.9% (plus) 50 ML 100 MG IV (09:05)
[2020-02-10] MEDS: aspirin 325 mg Tablet PO (09:05)
[2020-02-10] MEDS: enoxaparin 40 mg/0.4 mL Syringe SUBCUT (09:05)
[2020-02-10] MEDS: lisinopril 20 mg Tablet PO (09:05)
[2020-02-10] MEDS: tamsulosin 0.4 mg Capsule PO (09:05)
[2020-02-10] MEDS: atorvastatin 40 mg Tablet PO (22:07)
[2020-02-11] VITALS (10 sets, daily range): BP systolic 157–185; BP diastolic 88–96; PULSE 77–101; RESP 18–24; TEMP 36.5–36.8; O2SAT 87–98
[2020-02-11] MEDS: ipratropium-albuterol 3 mL Neb INHALATION ×3 (03:43→13:01)
[2020-02-11 04:22] LABS: Basophils % 0.8 %; Hematocrit 40.9 % (42.0-52.0); Hemoglobin 12.9 g/dL (11.7-16.6); Lymphocytes # 0.4 10^3/uL (0.8-4.8); Mean Corpuscular HGB Conc 31.5 g/dL (30.0-36.0); Mean Corpuscular Hemoglobin 25.6 pg (28.0-34.0); Mean Corpuscular Volume 81.3 fL (80-94); Mean Platelet Volume 11.4 fL (7.4-10.4); Monocytes # 0.2 10^3/uL (0.2-0.9); Monocytes % 4.5 %; Neutrophils # 3.8 10^3/uL (1.8-7.7); Neutrophils % 74.6 %; Nucleated Red Blood Cells % 0 %; Platelet Count 209 10^3/cmm (130-400); Red Blood Count 5.03 10^6/uL (4.1-5.3); Red Cell Distribution Width 14.1 % (12.1-15.1); White Blood Count 5.1 10^3/uL (4.0-10.0)
[2020-02-11 04:33] LABS: Alanine Aminotransferase 22 U/L (0-41); Albumin Level 3.6 g/dL (3.5-5.2); Alkaline Phosphatase 118 IU/L (40-130); Anion Gap 19.9 (5-19); Blood Urea Nitrogen 21 mg/dL (8-23); Calcium 9.1 mg/dL (8.5-10.5); Carbon Dioxide 27 mmol/L (22-29); Chloride 97 mmol/L (98-107); Globulin 2.8 g/dL (1.3-4.6); Glomerular Filtration Rate 165.9 mL/min (90-130); Glucose 179 mg/dL (65-115); Osmolality Calculated 289 mOsm/kg (285-295); Potassium 4.9 mmol/L (3.5-5.1); Sodium 139 mmol/L (136-145); Total Bilirubin 0.2 mg/dL (0.15-1.2); Total Protein 6.4 g/dL (6.6-8.7)
[2020-02-11 04:43] LABS: Slide Review Slide Review Perform
[2020-02-11 05:06] LABS: Aspartate Amino Transferase 36 U/L (0-40)
--- NOTE | 2020-02-11 07:41 | P.PN_ITS ---
Subjective Subjective: Interval history: Mihai has been moved to the second floor. He wants to go home. His oxygen requirements continue to decrease slowly. He is now on a nasal cannula. No chest pain. Less shortness of breath. No cough. Vitals/I&O/Wt Last Vital Signs Temp 97.7 F 02/11/20 04:00 Pulse 77 02/11/20 04:00 Resp 20 H 02/11/20 04:00 BP 157/91 02/11/20 04:00 Pulse Ox 98 02/11/20 04:00 02/10/20 02/11/20 02/11/20 22:59 06:59 14:59 Intake Total 360 / 890 Balance 360 / 890 Physical Exam Narrative: EXAM NARRATIVE: GENERAL: In general he looks and feels well HEENT: Exam within normal limits. NECK: Supple without jugular vein distention. The carotid upstroke is normal without bruits. BACK: Exam normal. LUNGS: Clear. Decreased breath sounds HEART: Regular rate and rhythm. ABDOMEN: Benign without organomegaly or tenderness. EXTREMITIES: No edema. NEUROLOGIC: Exam normal. SKIN: Unremarkable. Data : 02/11/20 03:53 02/11/20 03:53 A&P Assessment and plan (1) Essential hypertension: Status: Acute (2) Troponin level elevated: Status: Acute (3) Sepsis: Status: Acute (4) Community acquired pneumonia: Status: Acute (5) Acute exacerbation of chronic obstructive airways disease: Status: Acute (6) Smoker: Status: Acute Additional A&P Information I think he can have a stress test as an outpatient. He is not having any chest pain and there were no EKG abnormalities. I think this is related to demand ischemia. Attestations Medical Necessity Statement*: Not applicable Coding Level of Care Code Established Pt Acute Architecture Consultant for Chg Fwd Patient Type Established History Detailed Exam Detailed Medical Decision Making Moderate Complexity Diagnoses Essential hypertension I10 Troponin level elevated R79.89 Sepsis A41.9 Community acquired pneumonia J18.9 Acute exacerbation of chronic obstructive airways disease J44.1 Smoker F17.200
[2020-02-11] MEDS: budesonide 0.5 mg/2 mL Neb INHALATION (08:22)
[2020-02-11] MEDS: cefTRIAXone 1,000 MG in sodium chloride 0.9% (plus) 50 ML 100 MG IV (10:00)
[2020-02-11] MEDS: aspirin 325 mg Tablet PO (10:01)
[2020-02-11] MEDS: enoxaparin 40 mg/0.4 mL Syringe SUBCUT (10:01)
[2020-02-11] MEDS: gabapentin 300 mg Capsule PO (10:02)
[2020-02-11] MEDS: lisinopril 20 mg Tablet PO (10:02)
[2020-02-11] MEDS: azithromycin 250 mg Tablet 500 MG PO (10:02)
[2020-02-11] MEDS: tamsulosin 0.4 mg Capsule PO (10:02)
--- NOTE | 2020-02-11 10:02 | PC.SOCIAL ---
Pg 2 IMM Explained to pt via phone, Pg 2 IMM. Pt verbally understands, no questions voiced. Signed, dated, & timed a copy & placed in chart.
[2020-02-11] MEDS: metoprolol tartrate 25 mg Tablet 12.5 MG PO (10:03)
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
--- NOTE | 2020-02-11 14:00 | PC.NURSE ---
patients iv removed in tact, covered with 2x2 qnd coban, patient tolerated well. patient educated on new medications,. disease process, htn, sepsis, community aquired pneumonia, and smoking and given additional materials on how to stop and why as well as with not to smoke around o2. Home o2 has been delivered and patient edicated by patient registration representative. patient is stable and awaiting ride home.
== END 2020-02-11 14:25 | disposition home or self-care (01) | DRG 871 ==
LOC: ER 23:39 → ICU 02-08 02:20 → MEDSURG 02-10 11:22
PROVIDERS: Admitting Provider Internal Medicine; Emergency Provider Emergency Medicine; Family Provider Internal Medicine; PCP Nurse Practitioner; Visit Provider Internal Medicine
DX: A41.9 Sepsis, unspecified organism (principal); J18.9 Pneumonia, unspecified organism; J96.00 Acute respiratory failure, unspecified whether with hypoxia or hypercapnia; J44.1 Chronic obstructive pulmonary disease with (acute) exacerbation; J44.0 Chronic obstructive pulmonary disease with (acute) lower respiratory infection; F17.210 Nicotine dependence, cigarettes, uncomplicated; I11.0 Hypertensive heart disease with heart failure; F41.9 Anxiety disorder, unspecified; D64.9 Anemia, unspecified; I50.9 Heart failure, unspecified
CPT/HCPCS: 12345; 36415; 36600; 71045; 71275; 80048; 80053; 82803; 83605; 83880; 84484; 85025; 86403; 87040; 87635; 87804; 93005; 93308; 94640; 94660; 96372; 96374; 96375; 97110; 97161; 99283; J0360; J0696; J1650; J1956; J2270; J2930; J3490; J3535; J7030; J7614; J7626; Q0144; Q9967

== ENCOUNTER 2020-04-02 08:55 | Outpatient (CLI) | payer MEDICARE, SELFPAY ==
[2020-04-02 12:26] LABS: Basophils % 0.3 %; Eosinophils % 0.6 %; Hematocrit 40.8 % (42.0-52.0); Hemoglobin 12.6 g/dL (11.7-16.6); Lymphocytes # 0.7 10^3/uL (0.8-4.8); Lymphocytes % 20.7 %; Mean Corpuscular HGB Conc 30.9 g/dL (30.0-36.0); Mean Corpuscular Hemoglobin 25.7 pg (28.0-34.0); Mean Corpuscular Volume 83.3 fL (80-94); Mean Platelet Volume 11.7 fL (7.4-10.4); Monocytes # 1.1 10^3/uL (0.2-0.9); Monocytes % 30.3 %; Neutrophils # 1.7 10^3/uL (1.8-7.7); Neutrophils % 46.7 %; Nucleated Red Blood Cells % 0 %; Platelet Count 235 10^3/cmm (130-400); Red Cell Distribution Width 15.9 % (12.1-15.1); White Blood Count 3.5 10^3/uL (4.0-10.0)
[2020-04-02 12:44] LABS: Ferritin 14 ng/mL (30-400); Iron 24 ug/dL (59-158); Percent Saturation 5.8 % (20-50); Total Iron Binding Capacity 413 mcg/dl; Unsaturated Iron Binding 389 ug/dL (112-347)
[2020-04-02 13:00] LABS: Vitamin B12 430 pg/mL (232-1245)
== END 2020-04-02 08:56 | disposition home or self-care (01) ==
PROVIDERS: PCP Nurse Practitioner; Visit Provider Internal Medicine Hematology & Oncology
DX: D50.9 Iron deficiency anemia, unspecified (principal); D51.9 Vitamin B12 deficiency anemia, unspecified; R63.4 Abnormal weight loss
CPT/HCPCS: 82607; 82728; 83540; 83550; 85025

== ENCOUNTER 2020-04-05 08:59 | Outpatient (CLI) | payer MEDICARE, SELFPAY ==
--- NOTE | 2020-04-06 17:08 | ONC FU_ITS ---
Dr. Guerin follow up note Patient: Mihai Jones Unit #: [id number]: 1950 Dicatated By: Pa Guerin M.D.Date of Visit:Apr 05, 2020 Onc Med Follow-up/Prog Note History of Present Illness: Mr. Mihai Jones , 69-year-old gentleman with long-standing history of anemia. As as per Mr. Jones when he was 17-year-old when he passed out while throwing up coffee-ground material and also noticed black tarry stools. he did require blood transfusion and underwent 'stomach surgery at age 19 and since then he had issues with adhesions and a has been taking B12 supplements, off and on problem with indigestion and digestion He underwent colonoscopy year ago at [facility] and he was told everything was normal and he will return to clinic for next colonoscopy in 10 years. s/p 2 doses of Injectafer With excellent response And single dose Injectafer infusion on 03/24/2019 .Came for follow-up, complaining of progressive weakness otherwise no fever or chills, no nausea vomiting no diarrhea constipation, no melena hematochezia. Still smoking about 1 pack a day Medications: Depakote ER 1 (500 mg) Tablet SR 24 HR Oral b.i.d., Gabapentin 1 (300 mg) Capsule Oral t.i.d., Lisinopril 1 (20 mg) Tablet Oral daily, Naproxen 1 (500 mg) Tablet Oral b.i.d., Nortriptyline HCl 1 Capsule (of 25 mg) Oral at bedtime, Pristiq 1 (100 mg) Tablet SR 24 HR Oral daily, Tamsulosin HCl 1 (0.4 mg) Capsule Oral at bedtime Allergies: No Known Allergies. Review of Systems: Review of Systems is not available for this patient. Vital Signs: Performed on Apr 05, 2020 09:29 Height - 62.00 in Weight - 116.8 lbs (HIGH) BSA - 1.52 sq.m BMI - 21.36 Temperature - 97.8 F (LOW) Pulse - 85 /min Respiration - 18 /min BP - 140/87 mm(hg) O2 Sat - 100 % Pain - 0 Performance Status: 0 - Fully active, able to carry on all predisease activities without restrictions. (ECOG) Physical Examination: ENMT - no mouth sores, no jaundice, Respiratory - Lungs are clear, Cardiovascular - Regular rate and rhythm of heart, Abdomen - soft, bowel sounds present, Extremities - no edema or rash. Lab/Imaging: Test performed on April 02, 2020 08:55 Ferritin 14 ng/mL Iron 24 mcg/dL Vitamin B12 430 pg/mL Iron Binding Capacity (TIBC) 413 mcg/dl % Iron Saturation 5.8 % UIBC 389 mcg/dL WBC 3.5 10 3/uL RBC 4.90 10 6/uL HGB 12.6 g/dL HCT 40.8 % MCV 83.3 fL MCH 25.7 pg MCHC 30.9 g/dL RDW 15.9 % Platelet Count 235 10 3/cmm MPV 11.7 fL Neutrophils 1.7 10 3/uL Lymphocytes 0.7 10 3/uL Monocytes 1.1 10 3/uL Eosinophils 0.0 10 3/uL Basophils 0.0 10 3/uL Neutrophil % 46.7 % Lymphocyte % 20.7 % Monocyte % 30.3 % Eosinophil % 0.6 % Basophils % 0.3 % Test performed on Jan 01, 2020 09:50 Manual Bands % 8.0 % Manual Lymphs % 15 % Manual Monos % 11.0 % Manual Basos % 1.0 % Metamyelocytes % 2.0 % Myelocytes % 2.0 % CBC Slide Review Slide Review Perform Manual Bands Abs 0.7 10 3/cmm Manual Monocytes Abs 1.0 10 3/cmm Manual Basophils Abs 0.1 10 3/cmm Impression: 1. 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 Weight loss probably due to malabsorption or dumping syndrome, advised small meals but more ofte 3, COPD, heavy smoking Plan: Discussed with patient regarding his labs white blood count 3.5 globin 12.6 crit 40.8 platelets 235,000 iron saturation 5.8 compared to 21.7 on 09/05/2019 ferritin 14 and iron 24 TIBC 413 vitamin B12 430 Clinically, patient is doing well but now with progressive weakness although his follow-up CBC shows hemoglobin in normal range, that could be due to polycythemia due to chronic smoking as his iron stores shows progressive iron deficiency which could be due to malabsorption or chronic blood loss. At this point because of worsening of symptoms, we'll consider Injectafer 750 mg IV ???1 and then he will return to clinic in 2 months with CBC and iron studies, hopefully with that his symptoms may improve as well as iron stores. Signed By: Pa Guerin M.D. <<Signature on File>>
== END 2020-04-05 09:00 | disposition home or self-care (01) ==
LOC: ONCMED 09:02
PROVIDERS: PCP Nurse Practitioner; Visit Provider Internal Medicine Hematology & Oncology
DX: D50.9 Iron deficiency anemia, unspecified (principal); R63.4 Abnormal weight loss; F41.9 Anxiety disorder, unspecified; F32.9 Major depressive disorder, single episode, unspecified; I10 Essential (primary) hypertension; J44.9 Chronic obstructive pulmonary disease, unspecified; F17.210 Nicotine dependence, cigarettes, uncomplicated; K27.9 Peptic ulcer, site unspecified, unspecified as acute or chronic, without hemorrhage or perforation; Z79.899 Other long term (current) drug therapy
CPT/HCPCS: 99214

== ENCOUNTER 2020-04-08 14:27 | Outpatient (CLI) | payer MEDICARE, SELFPAY ==
[2020-04-08] MEDS: ferric carboxy (IVPB) 750 MG in sodium chloride 0.9% (100 ml) 100 ML 345 MG IV (15:00)
== END 2020-04-08 14:28 | disposition home or self-care (01) ==
LOC: ONCMED 14:28
PROVIDERS: PCP Nurse Practitioner; Visit Provider Internal Medicine Medical Oncology
DX: D50.9 Iron deficiency anemia, unspecified (principal); R63.4 Abnormal weight loss; F41.9 Anxiety disorder, unspecified; F32.9 Major depressive disorder, single episode, unspecified; I10 Essential (primary) hypertension
CPT/HCPCS: 96365; J1439

== ENCOUNTER → 2020-04-21 14:00 | Outpatient (BNVA) | payer MEDICARE, SELFPAY | PROVIDERS: PCP Nurse Practitioner; Visit Provider Nurse Practitioner | DX: M54.16 Radiculopathy, lumbar region (principal); M54.6 Pain in thoracic spine | CPT/HCPCS: 72072; 72100 ==

== ENCOUNTER 2020-06-10 12:42 | Outpatient (CLI) | payer MEDICARE, SELFPAY ==
[2020-06-10 13:44] LABS: Basophils % 0.6 %; Eosinophils % 0.1 %; Hematocrit 45.3 % (42.0-52.0); Lymphocytes # 1.1 10^3/uL (0.8-4.8); Lymphocytes % 14.6 %; Mean Corpuscular HGB Conc 30.9 g/dL (30.0-36.0); Mean Corpuscular Volume 90.6 fL (80-94); Mean Platelet Volume 10.7 fL (7.4-10.4); Monocytes # 1.4 10^3/uL (0.2-0.9); Monocytes % 19.3 %; Neutrophils # 4.23 10^3/uL (1.8-7.7); Neutrophils % 58.2 %; Nucleated Red Blood Cells % 0 %; Platelet Count 276 10^3/cmm (130-400); White Blood Count 7.3 10^3/uL (4.0-10.0)
[2020-06-10 14:14] LABS: Ferritin 64 ng/mL (30-400); Iron 60 ug/dL (59-158); Total Iron Binding Capacity 373 mcg/dl; Unsaturated Iron Binding 313 ug/dL (112-347); Vitamin B12 836 pg/mL (232-1245)
[2020-06-10 14:24] LABS: Slide Review Slide Review Perform
[2020-06-10 14:42] LABS: Folate Level 3.2 ng/mL (4.5-32.2)
== END 2020-06-10 12:43 | disposition home or self-care (01) ==
LOC: ONCMED 12:48
PROVIDERS: PCP Nurse Practitioner; Visit Provider Internal Medicine Hematology & Oncology
DX: D50.9 Iron deficiency anemia, unspecified (principal); R63.4 Abnormal weight loss
CPT/HCPCS: 36415; 82607; 82728; 82746; 83540; 83550; 85025

== ENCOUNTER 2020-10-13 11:32 | Day surgery (SDC) | payer MEDICARE, SELFPAY ==
[2020-10-13] VITALS (10 sets, daily range): BP systolic 136–205; BP diastolic 74–110; PULSE 74–107; RESP 16–20; TEMP 36.6–37.2; O2SAT 93–99; BMI 22.3
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
[2020-10-13] MEDS: nitroglycerin 0.4 mg sublingual Tablet SUBLINGUAL (12:02)
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
[2020-10-13] MEDS: sodium chloride 0.9% 1,000 ML 30 ML IV (13:30)
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
[2020-10-13] MEDS: labetalol 5 mg/mL SDV 20mL IVP (15:44)
--- NOTE | 2020-10-13 18:39 | ANE.PACU2 ---
Inpatient post-anesthesia follow up: Airway intact: Yes Vital signs: Temperature 97.8 F Pulse Rate [Left R adial] 107 Pulse Rate 74 Respiratory Rate 18 Blood Pressure [Le ft Arm] 205/109 Blood Pressure 169/88 Pulse Oximetry 96 Oxygen Delivery Me thod Room Air Oxygen Flow Rate 2.0 Fraction of Inspir ed Oxygen Hydration adequate: Yes Nausea and vomiting: No Pain level: 3 Mental status: Baseline
== END 2020-10-13 16:35 | disposition home or self-care (01) ==
LOC: ER 12:26 → OPS 13:01
PROVIDERS: Emergency Provider Emergency Medicine; PCP Nurse Practitioner; Visit Provider Surgery
PROC: 0DJ08ZZ Inspection of Upper Intestinal Tract, Via Natural or Artificial Opening Endoscopic (ICD-10-PCS; CPT 43235; principal; 2020-10-13 12:45)
DX: T18.108A Unspecified foreign body in esophagus causing other injury, initial encounter (principal); F41.9 Anxiety disorder, unspecified; I10 Essential (primary) hypertension; E78.2 Mixed hyperlipidemia; Z79.82 Long term (current) use of aspirin; Z82.49 Family history of ischemic heart disease and other diseases of the circulatory system; Z83.79 Family history of other diseases of the digestive system; F17.210 Nicotine dependence, cigarettes, uncomplicated; J44.9 Chronic obstructive pulmonary disease, unspecified
CPT/HCPCS: 12345; 43247; 96372; 99282; J0330; J1610; J2001; J2405; J2704; J3010; J3490; J7030

== ENCOUNTER 2020-11-27 11:04 | Emergency (ER) | payer MEDICARE, SELFPAY ==
[2020-11-27 11:33] VITALS: BP 190/118; PULSE 113; RESP 14; TEMP 36.8; O2SAT 95; BMI 22.3
--- NOTE | 2020-11-27 12:13 | W.ED.GENADLT ---
HPI - General Adult General: Chief complaint: Airway/Esophagus Foreign Body Stated complaint: Foreign Object in throat Time Seen by Provider: 11/27/20 11:55 Source: patient Mode of arrival: ambulatory Limitations: no limitations History of Present Illness: HPI narrative: The patient is a 70-year-old male with a history of hypertension, COPD who presents to the emergency department with a foreign body in his esophagus. He said he was eating a piece of meat yesterday at about 3 PM when the piece of meat got stuck. He has had this happen 2 other times in the last 6 weeks. The first time he required an EGD to remove the foreign body. The second time which was on he states that overnight the foreign body spontaneously passed. He was hoping the same will happen yesterday but as it is still lodged he presents to the emergency for evaluation. He is unable to swallow even his saliva. Associated symptoms: Deny dyspnea, headache(s), nausea, rash, palpitations or vomiting Review of Systems General: Reports: 10 or more systems reviewed and unremarkable except in HPI and below Const: Denies: fever(s), chills or body aches Eyes: Denies: change in vision or blurry vision ENMT: Denies: throat pain, enlarged tonsils, odynophagia, hoarseness, mouth pain or swelling of lips/tongue Card: Denies: palpitations, irregular heart rhythm, edema or swelling of feet/ankles Resp: Denies: dyspnea, productive cough or non-productive cough GI: Denies: abdominal pain, nausea or vomiting : Denies: flank pain, dysuria, urinary frequency, urinary urgency or urinary hesitancy Musc: Denies: neck pain, back pain or extremity swelling Skin/Breast: Denies: rash, pruritus or erythema Neuro: Denies: headache(s), numbness in extremities or weakness in extremities Endo: Denies: polyuria, polydipsia or tired all the time PFSH ED PFSH: Medical History Anemia Anxiety COPD (chronic obstructive pulmonary disease) Dumping syndrome Esophageal stricture Essential hypertension Femur fracture Gastric ulcer Malabsorption Microcytic anemia Mixed hyperlipidemia Seizure Shoulder arthritis Surgical History H/O esophagogastroduodenoscopy (10/13/20) for food bolus Normal colonoscopy S/P subtotal gastrectomy At age 19, 3 surgeries due to gastric ulcers and adhesions Family History Family/Other Gastric peptic ulcer Other CAD (coronary artery disease) Social History Smoking and tobacco status: current every day smoker cigarettes [ Other cigarette details: 79-hakx-wonh smoking history ] Second hand smoke exposure: Yes Smoking risk assessment/counseling performed?: Yes Alcohol intake: never Desire information about alcohol rehabilitation?: No Counseling given: No Desire information about substance/drug rehabilitation?: No Counseling given: No Adopted: No Caregiver/support person: No Lives independently: Yes Household members: significant other Housing: House Marital status: Single service: No Current occupational status: disabled History of recent travel: No Current gender identity: Male Physical Exam Const: COMMON NORMALS: no acute distress, average body habitus, patient oriented x3, no limitations, healthy appearing, alert and well nourished HENMT: COMMON NORMALS: normocephalic, atraumatic and moist oral mucous membranes HEAD & SCALP: normocephalic and atraumatic Eye: COMMON NORMALS: Equal, round and reactive pupils present, EOMs intact bilaterally, conjunctivae normal and no scleral icterus CONJUNCTIVA: Yes conjunctivae normal PUPIL: Yes Equal, round and reactive pupils present Neck/C-Spine: COMMON NORMALS: no meningeal signs and no JVD Resp: COMMON NORMALS: normal respiratory effort, No retractions, No use of accessory muscles, clear to auscultation bilaterally and percussion normal AUSCULTATION: clear to auscultation bilaterally PERCUSSION: percussion normal Cardio: COMMON NORMALS: no JVD, regular rate, regular rhythm, S1 normal heart sound present, S2 normal heart sound present, No gallops present (Cardio), No clicks present (Cardio), No murmurs present (Cardio), No rub (Cardio) and Peripheral pulses 2+ throughout RATE: regular rate RHYTHM: regular rhythm HEART SOUNDS: S1 normal heart sound present and S2 normal heart sound present PERIPHERAL PULSES: Peripheral pulses 2+ throughout GI: COMMON NORMALS: Normal to inspection, nondistended, normoactive bowel sounds present, Soft to palpation, non-tender, No hepatosplenomegaly present, no masses and no bruits PALPATION: Yes Soft to palpation and Yes No hepatosplenomegaly present Neuro: COMMON NORMALS: patient oriented x3 SENSORIUM/ORIENTATION: Yes alert MENINGEAL SIGNS: Yes no meningeal signs Course Reevaluation(s): Reevaluation #1: Foreign body passed with the glucagon injection. He was able to drink water without difficulty. He feels well enough to be discharged home. We will discharge him home. Time: 12:33 Vital Signs: Vital signs: Vital Signs Temperature 98.2 F 11/27/20 11:33 Pulse Rate 112 H 11/27/20 12:46 Respiratory Rate 18 11/27/20 12:46 Blood Pressure 194/115 11/27/20 12:46 Pulse Oximetry 94 11/27/20 12:46 MDM - General Adult MDM Narrative: Medical decision making narrative: 70-year-old male who presents with foreign body in his esophagus. He had this happen to him yesterday and has not been able to swallow his saliva since then. He was hoping it would spontaneously resolve but when he did not take him to the emergency department to be evaluated. He received a glucagon intramuscular injection and this resolved his symptoms. He was able to swallow water after that. Since this is the third time this is happening in about 6 weeks I think he needs to have a swallow evaluation to see if his diet needs to be modified so an outpatient order for a barium swallow has been made. He will follow-up with his primary care provider. Medical Records: Attestation: I reviewed the patient's medical records. Lab Data: Attestation: I reviewed the patient's lab results. Discharge Plan Discharge Patient Disposition: Home Clinical Impression: Esophageal foreign body Qualifiers: Encounter type: initial encounter Qualified Code(s): T18.108A - Unspecified foreign body in esophagus causing other injury, initial encounter Condition: Stable Prescriptions: Continued Perforomist 20 mcg/2 mL solution for nebulization 2 ml INHALATION Q12H Qty: 60 RF: 5 albuterol sulfate 2.5 mg /3 mL (0.083 %) solution for nebulization 2.5 mg INHALATION Q4H PRN (Reason: wheezing/shortness of breath) RF: 0 (DME) nebulizers Misc See Rx Instructions .ROUTE .MEDSUPPLY Qty: 1 RF: 0 tizanidine 4 mg capsule 4 mg PO TID PRN (Reason: muscle spasticity) 30 Days Qty: 90 RF: 0 atorvastatin 40 mg tablet 40 mg PO BEDTIME@2100 RF: 0 ipratropium-albuterol 0.5 mg-3 mg(2.5 mg base)/3 mL solution for nebulization 3 ml INHALATION QID@08,,, PRN (Reason: wheezing) RF: 0 aspirin 325 mg tablet 325 mg PO DAILY@0800 RF: 0 lisinopril 20 mg tablet 20 mg PO DAILY@0800 RF: 0 Flomax 0.4 mg capsule 0.4 mg PO DAILY@0800 RF: 0 gabapentin 300 mg capsule 600 mg PO TID@,, RF: 0 Pulmicort 0.5 mg/2 mL suspension for nebulization 0.5 mg INHALATION BID@, RF: 0 Naprosyn 500 mg tablet 500 mg PO BID@0800,2100 RF: 0 Pristiq 100 mg tablet extended release 24 hr 100 mg PO DAILY@0800 RF: 0 Protonix 40 mg tablet,delayed release (DR/EC) 40 mg PO DAILY 42 Days RF: 3 Discharge Orders: Discharge ED (Routine); Ordered 11/27/20 Ordered By: Marya Gama Referrals: Venkata Teran, LINDA-C [Primary Care Provider] - 1-3 days Discharge Diet: Advance as tolerated Discharge Activity: Resume usual activity Patient Instructions: Foreign Body - Swallowed Activity Restrictions/Additional Instructions: Return for any new or worsening symptoms. Since you have had this happen to you 3 times in about 6 weeks I have placed a consult for you to get an outpatient swallow evaluation to see if you have trouble with swallowing certain foods. That way we can modify your diet and prevent this from happening again. You will be contacted by case management to schedule the appointment. Follow-up with your primary care provider within 3 days. Coding Level of Care Code ED Drafter Apprentice for Priscilla Fwd Exam Detailed
--- NOTE | 2020-11-27 12:30 | PC.NURSE ---
pt states feels like fb has went down some. did po challenge and pt did cough a couple times, but was able to keep water down.
[2020-11-27 12:46] VITALS: BP 194/115; PULSE 112; RESP 18; O2SAT 94
--- NOTE | 2020-11-29 16:59 | DCPLANNER ---
sourcing manager had message to schedule a barium swallow. sourcing manager faxed order to centralized scheduling. sourcing manager will call for appointment information.
--- NOTE | 2020-12-07 15:28 | DCPLANNER ---
Patient had an appointment for a barium swallow test scheduled - patient cancelled will call back to reschedule the test.
== END 2020-11-27 12:47 | disposition home or self-care (01) ==
PROVIDERS: Emergency Provider Family Medicine; PCP Nurse Practitioner
DX: T18.128A Food in esophagus causing other injury, initial encounter (principal); Z79.82 Long term (current) use of aspirin; J44.9 Chronic obstructive pulmonary disease, unspecified; I10 Essential (primary) hypertension; E78.2 Mixed hyperlipidemia; F17.210 Nicotine dependence, cigarettes, uncomplicated; X58.XXXA Exposure to other specified factors, initial encounter
CPT/HCPCS: 12345; 96372; 99282; 99283; J1610

== ENCOUNTER → 2021-01-14 09:29 | Outpatient (BNVA) | payer MEDICARE, SELFPAY | PROVIDERS: PCP Nurse Practitioner; Visit Provider Nurse Practitioner | DX: E55.9 Vitamin D deficiency, unspecified (principal); I10 Essential (primary) hypertension; E61.1 Iron deficiency; F41.9 Anxiety disorder, unspecified | CPT/HCPCS: 80053; 80061; 81000; 82306; 82607; 83550; 84443; 85025 ==

== ENCOUNTER 2021-03-27 23:38 | Inpatient (IN) | payer MEDICARE, SELFPAY ==
--- NOTE | 2021-03-27 23:42 | ECG_ITS ---
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 Measurements Intervals [place] Rate: 104 P: 73 [place]: 157 QRS: 52 QRSD: 80 T: 77 QT: 325 QTc: 428 Interpretive Statements SINUS TACHYCARDIA POSSIBLE LEFT ATRIAL ENLARGEMENT [-0.1mV P WAVE IN V1/V2] Compared to ECG 02/08/2020 05:37:11 No significant changes Electronically Signed On 03-28-2021 16:18:42 CDT by Chauncey Wade M.D. [email or web address]
--- NOTE | 2021-03-27 23:44 | ED_ITS ---
HPI - SOB/Dyspnea General: Chief Complaint: Shortness of Breath/Dyspnea Stated Complaint: sob x 1 week Time Seen by Provider: 03/27/21 23:42 Source: patient Mode of arrival: ambulatory Limitations: no limitations History of Present Illness: HPI Narrative: 71-year-old male who has a extensive history of COPD on 4 L of oxygen at baseline. States that tonight he was having increased shortness of breath. He states that he is done multiple treatments at home tonight and he continues to have dyspnea. He is currently on 4 L which is what he is at home and is 96%. He denies any chest pain. Denies any fever. Has had a slight cough that is chronic. Associated symptoms: Deny abdominal pain, chest pain, fever(s), nausea or vomiting Review of Systems Const: Denies: fever(s), chills, body aches or change in appetite Eyes: Denies: blurry vision or eye discomfort ENMT: Denies: throat pain or dental pain Card: Denies: chest pain Resp: Reports: dyspnea and wheezing GI: Denies: abdominal pain, nausea, vomiting or diarrhea : Denies: dysuria Musc: Denies: neck pain or back pain Skin/Breast: Denies: rash Neuro: Denies: headache(s) Psych: Denies: depression Mina/Lymph: Denies: easy bruising All/Imm: Denies: urticaria PFSH ED PFSH: Medical History (Updated 03/28/21 @ 01:42 by Brenna Garcia MD) Anemia Anxiety COPD (chronic obstructive pulmonary disease) Dumping syndrome Esophageal stricture Essential hypertension Femur fracture Gastric ulcer History of nonmelanoma skin cancer Malabsorption Microcytic anemia Mixed hyperlipidemia Seizure Shoulder arthritis Surgical History H/O esophagogastroduodenoscopy (10/13/20) for food bolus Normal colonoscopy S/P subtotal gastrectomy At age 19, 3 surgeries due to gastric ulcers and adhesions Family History Family/Other Gastric peptic ulcer Other CAD (coronary artery disease) Social History Smoking and tobacco status: current every day smoker cigarettes [ Other cigarette details: [id number] smoking history ] Second hand smoke exposure: Yes Smoking risk assessment/counseling performed?: Yes Alcohol intake: never Desire information about alcohol rehabilitation?: No Counseling given: No Desire information about substance/drug rehabilitation?: No Counseling given: No Adopted: No Caregiver/support person: No Lives independently: Yes Household members: significant other Housing: House Marital status: Single service: No Current occupational status: disabled History of recent travel: No Current gender identity: Male Physical Exam Const: COMMON NORMALS: no acute distress, patient oriented x3 and healthy appearing HENMT: COMMON NORMALS: normocephalic and atraumatic HEAD & SCALP: normocephalic and atraumatic Eye: COMMON NORMALS: Equal, round and reactive pupils present and EOMs intact bilaterally PUPIL: Yes Equal, round and reactive pupils present Neck/C-Spine: COMMON NORMALS: full ROM and supple Chest: COMMONS NORMALS: normal inspection of the chest and normal palpation of entire chest wall Resp: EFFORT & INSPECTION: Yes tachypneic AUSCULTATION: wheezes Cardio: COMMON NORMALS: regular rate, regular rhythm and No murmurs present (Cardio) RATE: regular rate RHYTHM: regular rhythm GI: COMMON NORMALS: Normal to inspection, nondistended, normoactive bowel sounds present, Soft to palpation, non-tender and no masses PALPATION: Yes Soft to palpation Extremity: COMMON NORMALS: normal to inspection and full ROM Neuro: COMMON NORMALS: patient oriented x3, moves all extremities and no focal motor deficits Psych: COMMON NORMALS: mental status grossly normal, Normal thought process present and cooperative THOUGHT PROCESS: Normal thought process present Skin: COMMON NORMALS: no rashes or lesions noted and no wounds GENERAL SKIN EXAM: no rashes or lesions noted Course Vital Signs: Vital signs: Vital Signs Temperature 97.9 F 03/27/21 23:45 Pulse Rate 76 03/28/21 02:11 Respiratory Rate 18 03/28/21 02:11 Blood Pressure 198/106 03/28/21 02:11 Pulse Oximetry 92 03/28/21 02:11 MDM - SOB/Dyspnea MDM Narrative: Medical decision making narrative: Patient presents with shortness of breath likely COPD exacerbation. He is also hypertensive as well. Blood pressure is improved here with labetalol. He is breathing here is improved with breathing treatments and steroid. Will admit for observation for his hypertension along with his COPD exacerbation. I spoke to the hospitalist who will admit. Lab Data: Labs: Lab Results 03/27/21 03/27/21 03/27/21 Range/Units 23:52 23:55 23:55 WBC 14.4 H (4.0-10.0) 10^3/ uL RBC 5.52 H (4.1-5.3) 10^6/u L Hgb 14.6 (11.7-16.6) g/dL Hct 47.3 (42.0-52.0) % MCV 85.7 (80-94) fL MCH 26.4 L (28.0-34.0) pg MCHC 30.9 (30.0-36.0) g/dL RDW 18.5 H (12.1-15.1) % Plt Count 185 (130-400) 10^3/c mm MPV 12.5 H (7.4-10.4) fL Neut % (Auto) 74.3 % Lymph % (Auto) 3.4 % Clinch % (Auto) 19.1 % Eos % (Auto) 0.3 % Baso % (Auto) 0.2 % Neut # (Auto) 10.72 H (1.8-7.7) 10^3/u L Lymph # (Auto) 0.5 L (0.8-4.8) 10^3/u L Clinch # (Auto) 2.8 H (0.2-0.9) 10^3/u L Eos # (Auto) 0.0 (0.0-0.8) 10^3/u L Baso # (Auto) 0.0 (0.0-0.1) 10^3/u L Nucleated RBC % (a uto) 0 % Nucleated RBCs # 0.0 /100WBC Specimen Type Arterial Sample Site Radial, right ABG pH 7.41 (7.35-7.45) ABG pCO2 45.2 H (35-45) mmHg ABG pO2 69.2 L (80.0-100.0) mmH g ABG HCO3 28.7 H (22-26) mmol/L ABG Base Excess 3.4 H (-2.0-2.0) mmol/ L Jaime Test Pos Hematocrit 44.1 (42-52) % Hgb O2 Saturation 88.5 L (95-100) % Carboxyhemoglobin 5.9 (0.4-20.1) %THgb Methemoglobin 0.8 (0.4-1.5) % Total Hemoglobin 14.4 (14-18) g/dL O2 Delivery Device Nc O2 Liters/Min 4.0 % FiO2 36.0 % Nursing Informatics Clinical Analyst ID [id number] Sodium 142 (136-145) mmol/L Potassium 4.0 (3.5-5.1) mmol/L Chloride 102 (98-107) mmol/L Carbon Dioxide 27 (22-29) mmol/L Anion Gap 17.0 (5-19) BUN 9 (8-23) mg/dL Creatinine 0.5 L (0.7-1.2) mg/dL GFR Calculation 164.9 H (90-130) mL/min Glucose 120 H (65-115) mg/dL Calculated Osmolal ity 294 (285-295) mOsm/k g Calcium 8.3 L (8.5-10.5) mg/dL Total Bilirubin 0.3 (0.15-1.2) mg/dL AST 24 (0-40) U/L ALT 20 (0-41) U/L Alkaline Phosphata se 103 (40-130) IU/L Troponin T Baselin e (0-15) ng/L NT-Pro-B Natriuret Pep 484 H (0-125) pg/mL Total Protein 7.2 (6.6-8.7) g/dL Albumin 3.9 (3.5-5.2) g/dL Globulin 3.3 (1.3-4.6) g/dL 03/27/21 Range/Units 23:55 WBC (4.0-10.0) 10^3/ uL RBC (4.1-5.3) 10^6/u L Hgb (11.7-16.6) g/dL Hct (42.0-52.0) % MCV (80-94) fL MCH (28.0-34.0) pg MCHC (30.0-36.0) g/dL RDW (12.1-15.1) % Plt Count (130-400) 10^3/c mm MPV (7.4-10.4) fL Neut % (Auto) % Lymph % (Auto) % Clinch % (Auto) % Eos % (Auto) % Baso % (Auto) % Neut # (Auto) (1.8-7.7) 10^3/u L Lymph # (Auto) (0.8-4.8) 10^3/u L Clinch # (Auto) (0.2-0.9) 10^3/u L Eos # (Auto) (0.0-0.8) 10^3/u L Baso # (Auto) (0.0-0.1) 10^3/u L Nucleated RBC % (a uto) % Nucleated RBCs # /100WBC Specimen Type Sample Site ABG pH (7.35-7.45) ABG pCO2 (35-45) mmHg ABG pO2 (80.0-100.0) mmH g ABG HCO3 (22-26) mmol/L ABG Base Excess (-2.0-2.0) mmol/ L Jaime Test Hematocrit (42-52) % Hgb O2 Saturation (95-100) % Carboxyhemoglobin (0.4-20.1) %THgb Methemoglobin (0.4-1.5) % Total Hemoglobin (14-18) g/dL O2 Delivery Device O2 Liters/Min % FiO2 % Nursing Informatics Clinical Analyst ID Sodium (136-145) mmol/L Potassium (3.5-5.1) mmol/L Chloride (98-107) mmol/L Carbon Dioxide (22-29) mmol/L Anion Gap (5-19) BUN (8-23) mg/dL Creatinine (0.7-1.2) mg/dL GFR Calculation (90-130) mL/min Glucose (65-115) mg/dL Calculated Osmolal ity (285-295) mOsm/k g Calcium (8.5-10.5) mg/dL Total Bilirubin (0.15-1.2) mg/dL AST (0-40) U/L ALT (0-41) U/L Alkaline Phosphata se (40-130) IU/L Troponin T Baselin e 30 H (0-15) ng/L NT-Pro-B Natriuret Pep (0-125) pg/mL Total Protein (6.6-8.7) g/dL Albumin (3.5-5.2) g/dL Globulin (1.3-4.6) g/dL Imaging Data^: CXR: Radiologist's impression: [facility] [address] [place] [address] XRay Report Signed Patient: Mihai Jones Unit #: [id number] : 1950 Age/Sex: 71 / M ADM Date: 03/27/21 Loc: ER Room/Bed: Attending Dr: Ordering Provider/Ordering MD: Brenna Garcia MD Date of Service: 03/27/21 Procedure(s): XR chest 1V portable [id number] Accession Number(s): [id number] Report Number: [id number] PROCEDURE INFORMATION: Exam: XR Chest Exam date and time: 03/27/2021 12:01 AM Age: 71 years old Clinical indication: Dyspnea; Additional info: SOB TECHNIQUE: Imaging protocol: XR of the chest. Views: 1 view. COMPARISON: CR XR chest 1V portable [id number] 02/09/2020 8:07 AM FINDINGS: Lungs: No CHF/pulmonary edema. The lungs are again hyperinflated, likely secondary to COPD. Mild probable parenchymal scarring or atelectasis in the lower lungs. Visible lungs otherwise appear essentially clear. Pleural spaces: No visible pneumothorax. No definite pleural fluid. Heart/Mediastinum: Heart size is within normal limits. Bones/joints: Left shoulder prosthesis again noted. XR/XR chest 1V portable [id number] IMPRESSION: 1. No definite CHF or pneumonia. 2. Other findings discussed above. EKG Data^: EKG 1: Attestation: I personally reviewed and interpreted this EKG as follows: EKG Interpretation Date: 03/28/21 EKG interpretation time: 00:17 Interpretation: sinus tach hr [address] or t wave abnormalities qrs 80 qtc 385 EKG 2: Attestation: I personally reviewed and interpreted this EKG as follows: EKG Interpretation Date: 03/28/21 EKG interpretation time: 02:17 Interpretation: nsr hr [address] or t wave abnormalities qrs 70 qtc 400 Discharge Plan Discharge Patient Disposition: Admitted As Inpatient Admit Provider: Ernesto Palacio Clinical Impression: Acute exacerbation of chronic obstructive airways disease, Hypertension Condition: Stable Coding Level of Care Code ED Commercial Real Estate Sales Manager for Chg Fwd Exam Comprehensive
[2021-03-27 23:45] VITALS: BP 215/127; PULSE 110; RESP 22; TEMP 36.6; O2SAT 96; BMI 22.3
[2021-03-27 23:50] VITALS: PULSE 108; RESP 20; O2SAT 96
[2021-03-27 23:58] LABS: ABG PCO2 45.2 mmHg (35-45); ABG PH Result 7.41 (7.35-7.45); Arterial Blood Gas Hematocrit 44.1 % (42-52); Base Excess ABG 3.4 mmol/L (-2.0-2.0); Blood Gas Allen Test Pos; Blood Gas Sample Site Radial, right; Blood Gas Sample Type Arterial; Carboxyhemoglobin 5.9 %THgb (0.4-20.1); HCO3 ABG 28.7 mmol/L (22-26); HGB O2 Sat 88.5 % (95-100); Methemoglobin 0.8 % (0.4-1.5); Oxygen Device NC; PO2 ABG 69.2 mmHg (80.0-100.0); Total Hemoglobin 14.4 g/dL (14-18)
[2021-03-28] VITALS (29 sets, daily range): BP systolic 153–230; BP diastolic 81–123; PULSE 70–109; RESP 16–26; TEMP 36.7–37.3; O2SAT 92–98
[2021-03-28 00:07] LABS: Basophils % 0.2 %; Eosinophils % 0.3 %; Hematocrit 47.3 % (42.0-52.0); Hemoglobin 14.6 g/dL (11.7-16.6); Lymphocytes # 0.5 10^3/uL (0.8-4.8); Lymphocytes % 3.4 %; Mean Corpuscular HGB Conc 30.9 g/dL (30.0-36.0); Mean Corpuscular Hemoglobin 26.4 pg (28.0-34.0); Mean Corpuscular Volume 85.7 fL (80-94); Mean Platelet Volume 12.5 fL (7.4-10.4); Monocytes # 2.8 10^3/uL (0.2-0.9); Monocytes % 19.1 %; Neutrophils # 10.72 10^3/uL (1.8-7.7); Neutrophils % 74.3 %; Nucleated Red Blood Cells % 0 %; Platelet Count 185 10^3/cmm (130-400); Red Blood Count 5.52 10^6/uL (4.1-5.3); Red Cell Distribution Width 18.5 % (12.1-15.1); White Blood Count 14.4 10^3/uL (4.0-10.0)
[2021-03-28 00:41] LABS: Alanine Aminotransferase 20 U/L (0-41); Albumin Level 3.9 g/dL (3.5-5.2); Alkaline Phosphatase 103 IU/L (40-130); Blood Urea Nitrogen 9 mg/dL (8-23); Calcium 8.3 mg/dL (8.5-10.5); Carbon Dioxide 27 mmol/L (22-29); Chloride 102 mmol/L (98-107); Globulin 3.3 g/dL (1.3-4.6); Glomerular Filtration Rate 164.9 mL/min (90-130); Glucose 120 mg/dL (65-115); NT Pro B Type Natriuretic Pept 484 pg/mL (0-125); Osmolality Calculated 294 mOsm/kg (285-295); Sodium 142 mmol/L (136-145); Total Bilirubin 0.3 mg/dL (0.15-1.2); Total Protein 7.2 g/dL (6.6-8.7)
[2021-03-28 00:44] LABS: Aspartate Amino Transferase 24 U/L (0-40)
[2021-03-28] MEDS: labetalol 5 mg/mL SDV 20mL 10 MG IVP (01:45)
[2021-03-28 01:57] LABS: Troponin(5th) Baseline 30 ng/L (0-15)
[2021-03-28 02:41] LABS: Troponin 5 2HR 28.36 ng/L (0-15)
[2021-03-28 02:42] LABS: Troponin 5 2HR Delta -1.64 ABS# (0-10)
--- NOTE | 2021-03-28 02:46 | P.HP_ITS ---
Providers/Chief Complaint Admitting Physician: Ernesto Palacio Primary Care Provider: BERNADETTE Sanchez Chief Complaint: sob x 1 week History of Present Illness Mihai Jones is a 71 year old male with past medical history of advanced COPD, on home oxygen at 3 L, hypertension who presents to emergency room with complaints of severe shortness of breath. He reports that his symptoms started about a week ago. Gradual progression of the symptoms. He denies any chest pain. Reports wheezes and dry cough. No mucus. No hemoptysis. No fever or chills. No nausea or vomiting. He reports loose stools. No blood. He reports similar episodes in the past. He reports admissions to hospital due to COPD exacerbation before. Unfortunately he continues smoking. His blood pressure was elevated in ER. He states that he is compliant with his medications. Clonidine patch was changed last Sunday. On the way to the hospital he received steroids by EMS. He reports improvement of his symptoms with supplemental oxygen. Review of Systems General: Reports: 10 or more systems reviewed and unremarkable except in HPI and below Medications/Allergies Home Medications Medication Instructions Recorded Confirmed Last Taken Type nebulizers #1 each 09/10/20 03/23/21 Unknown Rx aspirin 325 mg PO DAILY@0800 10/13/20 03/23/21 10/12/20 History albuterol sulfate 2.5 mg INHALATION Q4H #300 ml 01/14/21 03/23/21 Unknown Rx atorvastatin 40 mg tablet 40 mg PO BEDTIME@2100 #30 tab 01/14/21 03/23/21 Unknown Rx budesonide 0.5 mg/2 mL suspension 0.5 mg INHALATION BID@ #120 ml 01/14/21 03/23/21 Unknown Rx for nebulization clonidine 0.1 mg/24 hr weekly 1 patch TRANSDERMAL .weekly #4 ea 01/14/21 03/23/21 Unknown Rx transdermal patch desvenlafaxine succinate 100 mg 100 mg PO DAILY@0800 #30 tab 01/14/21 03/23/21 Unknown Rx tablet,extended release 24 hr formoterol fumarate 20 mcg/2 mL 2 ml INHALATION Q12H #60 ml 01/14/21 03/23/21 Unknown Rx solution for nebulization gabapentin 300 mg capsule 600 mg PO TID@,, #180 cap 01/14/21 03/23/21 Unknown Rx lisinopril 20 mg tablet 20 mg PO DAILY@0800 #30 tab 01/14/21 03/23/21 Unknown Rx naproxen 500 mg tablet 500 mg PO BID@0800,2100 #60 tab 01/14/21 03/23/21 Unknown Rx tamsulosin 0.4 mg capsule 0.4 mg PO DAILY@0800 #30 cap 01/14/21 03/23/21 Unknown Rx tizanidine 4 mg tablet 4 mg PO BID #60 tab 01/14/21 03/23/21 Unknown Rx ergocalciferol (vitamin D2) 1,250 1,250 mcg PO .weekly #4 cap 01/19/21 03/23/21 Unknown Rx mcg (50,000 unit) capsule ferrous gluconate 324 mg (37.5 mg 324 mg PO DAILY #30 tab 01/19/21 03/23/21 Unknown Rx iron) tablet Allergies Allergy/AdvReac Type Severity Reaction Status Date / Time No Known Allergies Allergy Verified 03/27/21 23:50 PFSH Acute PFSH: Medical History (Updated 03/28/21 @ 02:45 by Ernesto Palacio) Anemia Anxiety COPD (chronic obstructive pulmonary disease) Dumping syndrome Esophageal stricture Essential hypertension Femur fracture Gastric ulcer History of nonmelanoma skin cancer Malabsorption Microcytic anemia Mixed hyperlipidemia Seizure Shoulder arthritis Surgical History H/O esophagogastroduodenoscopy (10/13/20) for food bolus Normal colonoscopy S/P subtotal gastrectomy At age 19, 3 surgeries due to gastric ulcers and adhesions Family History Family/Other Gastric peptic ulcer Other CAD (coronary artery disease) Social History Smoking and tobacco status: current every day smoker cigarettes [ Other cigarette details: [id number] smoking history ] Second hand smoke exposure: Yes Smoking risk assessment/counseling performed?: Yes Alcohol intake: never Desire information about alcohol rehabilitation?: No Counseling given: No Desire information about substance/drug rehabilitation?: No Counseling given: No Adopted: No Caregiver/support person: No Lives independently: Yes Household members: significant other Housing: House Marital status: Single service: No Current occupational status: disabled History of recent travel: No Current gender identity: Male Vitals/I&O/Wt Last Vital Signs Temp 97.9 F 03/27/21 23:45 Pulse 76 03/28/21 02:11 Resp 18 03/28/21 02:11 BP 198/106 03/28/21 02:11 Pulse Ox 92 03/28/21 02:11 Weight last 48 hrs Weight 53.524 kg Physical Exam Narrative: EXAM NARRATIVE: The patient is awake alert and oriented. Mild to moderate distress secondary to shortness of breath. Mood and affect are appropriate. Responses are adequate. Skin is warm and dry. Moist mucous membranes. Eyes PERRL, extraocular muscles are intact No dysarthria or aphasia. However he develops dyspnea when he speaks. Neck supple. No JVD Lungs decreased breath sounds and bilateral expiratory wheezes. Mild tachypnea. Heart S1, S2, regular Abdomen soft, nontender, bowel sounds are present Extremities no edema cyanosis or calf tenderness bilaterally Neuro examination is nonfocal. Data : 03/27/21 23:55 03/27/21 23:55 Other Labs: Laboratory Results WBC 14.4 10^3/uL (4.0-10.0) H 03/27/21 23:55 RBC 5.52 10^6/uL (4.1-5.3) H 03/27/21 23:55 Hgb 14.6 g/dL (11.7-16.6) 03/27/21 23:55 Hct 47.3 % (42.0-52.0) 03/27/21 23:55 MCV 85.7 fL (80-94) 03/27/21 23:55 MCH 26.4 pg (28.0-34.0) L 03/27/21 23:55 MCHC 30.9 g/dL (30.0-36.0) 03/27/21 23:55 RDW 18.5 % (12.1-15.1) H 03/27/21 23:55 Plt Count 185 10^3/cmm (130-400) 03/27/21 23:55 MPV 12.5 fL (7.4-10.4) H 03/27/21 23:55 Neut % (Auto) 74.3 % 03/27/21 23:55 Lymph % (Auto) 3.4 % 03/27/21 23:55 [place] % (Auto) 19.1 % 03/27/21 23:55 Eos % (Auto) 0.3 % 03/27/21 23:55 Baso % (Auto) 0.2 % 03/27/21 23:55 Neut # (Auto) 10.72 10^3/uL (1.8-7.7) H 03/27/21 23:55 Lymph # (Auto) 0.5 10^3/uL (0.8-4.8) L 03/27/21 23:55 [place] # (Auto) 2.8 10^3/uL (0.2-0.9) H 03/27/21 23:55 Eos # (Auto) 0.0 10^3/uL (0.0-0.8) 03/27/21 23:55 Baso # (Auto) 0.0 10^3/uL (0.0-0.1) 03/27/21 23:55 Nucleated RBC % (auto) 0 % 03/27/21 23:55 Nucleated RBCs # 0.0 /100WBC 03/27/21 23:55 Specimen Type Arterial 03/27/21 23:52 Sample Site Radial, right 03/27/21 23:52 ABG pH 7.41 (7.35-7.45) 03/27/21 23:52 ABG pCO2 45.2 mmHg (35-45) H 03/27/21 23:52 ABG pO2 69.2 mmHg (80.0-100.0) L 03/27/21 23:52 ABG HCO3 28.7 mmol/L (22-26) H 03/27/21 23:52 ABG Base Excess 3.4 mmol/L (-2.0-2.0) H 03/27/21 23:52 Jaime Test Pos 03/27/21 23:52 Hematocrit 44.1 % (42-52) 03/27/21 23:52 Hgb O2 Saturation 88.5 % (95-100) L 03/27/21 23:52 Carboxyhemoglobin 5.9 %THgb (0.4-20.1) 03/27/21 23:52 Methemoglobin 0.8 % (0.4-1.5) 03/27/21 23:52 Total Hemoglobin 14.4 g/dL (14-18) 03/27/21 23:52 O2 Delivery Device Nc 03/27/21 23:52 O2 Liters/Min 4.0 % 03/27/21 23:52 FiO2 36.0 % 03/27/21 23:52 Senior Ui Ux Designer ID [id number] 03/27/21 23:52 Sodium 142 mmol/L (136-145) 03/27/21 23:55 Potassium 4.0 mmol/L (3.5-5.1) 03/27/21 23:55 Chloride 102 mmol/L (98-107) 03/27/21 23:55 Carbon Dioxide 27 mmol/L (22-29) 03/27/21 23:55 Anion Gap 17.0 (5-19) 03/27/21 23:55 BUN 9 mg/dL (8-23) 03/27/21 23:55 Creatinine 0.5 mg/dL (0.7-1.2) L 03/27/21 23:55 GFR Calculation 164.9 mL/min (90-130) H 03/27/21 23:55 Glucose 120 mg/dL (65-115) H 03/27/21 23:55 Calculated Osmolality 294 mOsm/kg (285-295) 03/27/21 23:55 Calcium 8.3 mg/dL (8.5-10.5) L 03/27/21 23:55 Total Bilirubin 0.3 mg/dL (0.15-1.2) 03/27/21 23:55 AST 24 U/L (0-40) 03/27/21 23:55 ALT 20 U/L (0-41) 03/27/21 23:55 Alkaline Phosphatase 103 IU/L (40-130) 03/27/21 23:55 Troponin T Baseline 30 ng/L (0-15) H 03/27/21 23:55 Troponin T 120 Minute 28.36 ng/L (0-15) H 03/28/21 01:45 Delta Troponin T -1.64 ABS# (0-10) L 03/28/21 01:45 NT-Pro-B Natriuret Pep 484 pg/mL (0-125) H 03/27/21 23:55 Total Protein 7.2 g/dL (6.6-8.7) 03/27/21 23:55 Albumin 3.9 g/dL (3.5-5.2) 03/27/21 23:55 Globulin 3.3 g/dL (1.3-4.6) 03/27/21 23:55 Impressions Chest X-Ray 03/27/21 23:42 IMPRESSION: 1. No definite CHF or pneumonia. 2. Other findings discussed above. A&P Additional A&P Information 71-year-old male with past medical history of advanced COPD, hypertension, tobacco abuse who is presenting with shortness of breath and cough. No evidence of pneumonia. His white blood cell count is elevated probably due to steroids received from EMS. Findings are consistent with COPD acute exacerbation probably due to continues tobacco smoking. Acute hypoxic respiratory failure secondary to COPD acute exacerbation. Improved with 6 to 7 L of oxygen via nasal cannula. Currently seems to be relatively stable. [facility] go to [facility]. We will continue aggressive steroids and respiratory treatments. Doxycycline. We will ask respiratory to help with management. Hypertensive urgency. The patient states that he is compliant with his medications. His clonidine patch was changed on Sunday. We will order as needed Vasotec and hydralazine. We will continue his home lisinopril. DVT prophylaxis. Lovenox. CODE STATUS. He wants to be full code. The plan of care was discussed with the patient and the family member. They verbalized understanding and agreement. Attestations Medical Necessity Statement*: Based on my assessment of patient's current condition he will require more than 2 midnights in the hospital for stabilization and optimization of his treatments. Coding Level of Care Code Acute Clinical Support Associate for Priscilla Tavares
[2021-03-28] MEDS: ipratropium-albuterol 3 mL Neb INHALATION ×4 (03:23→20:07)
[2021-03-28] MEDS: enoxaparin 40 mg/0.4 mL Syringe SUBCUT (05:11)
[2021-03-28] MEDS: pneumococcal (23 valent) SDV 0.5 mL IM (05:11)
[2021-03-28 06:46] LABS: Troponin 5 6HR 25.71 ng/L (0-15)
[2021-03-28 06:51] LABS: Troponin 5 6HR Delta -4.29 ng/L (0-12)
[2021-03-28] MEDS: hyDRALAzine 20 mg/mL INJ 1 mL 10 MG IVP (07:10)
[2021-03-28] MEDS: gabapentin 300 mg Capsule 600 MG PO ×3 (09:01→21:22)
[2021-03-28] MEDS: lisinopril 20 mg Tablet PO ×2 (09:01→11:37)
[2021-03-28] MEDS: doxycycline 100 mg Tablet PO (09:01)
[2021-03-28] MEDS: aspirin 325 mg Tablet PO (09:01)
[2021-03-28] MEDS: tizanidine 4 mg Tablet PO ×2 (09:01→17:09)
--- NOTE | 2021-03-28 10:07 | USCV_ITS ---
Mihai Jones Age: 71 Gender: M : 1950 Exam Date: 03/28/2021 16:03 Ordering Phys: Rafy Woodruff MD Technologist: Exam Location: [facility] [place] Indication: SOB BP: 123 / 73 HR: 84 Rhythm: Sinus Technical Quality: Very technically difficult study MEASUREMENTS (Male / Female) Normal Values 2D ECHO LV Diastolic Diameter PLAX 3.9 cm 4.2 - 5.9 / 3.9 - 5.3 cm LV Systolic Diameter PLAX 2.9 cm IVS Diastolic Thickness 1.1 cm 0.6 - 1.0 / 0.6 - 0.9 cm IVS Systolic Thickness 1.5 cm LVPW Diastolic Thickness 0.9 cm 0.6 - 1.0 / 0.6 - 0.9 cm LVPW Systolic Thickness 1.1 cm LVOT Diameter 2.1 cm LV Ejection Fraction 2D Teich 52.0 % LA Diameter 3.4 cm Aorta at Sinotubular Diameter 2.8 cm DOPPLER AV Peak Velocity 111.0 cm/s LVOT Peak Velocity 73.0 cm/s AV Area Cont Eq vti 2.0 cm squared AV Area Cont Eq pk 2.2 cm squared TR Peak Velocity 168.7 cm/s TR Peak Gradient 11.4 mmHg PV Peak Velocity 105.0 cm/s FINDINGS Left Ventricle Normal left ventricular size. LV systolic function is normal with EF of 55-60%.Willis wall motion abnormalities are difficult to assess because of poor ultrasonic windows but grossly normal. Diastolic function is indeterminate as tissue doppler not obtained Right Ventricle The right ventricle is normal in size and function. Right Atrium The right atrium is normal in size. Left Atrium The left atrium is normal in size. Mitral Valve Moderate mitral annular calcification without significant stenosis or prolapse. There is trace mitral regurgitation. Aortic Valve Structurally normal aortic valve without significant sclerosis or stenosis. There is no aortic regurgitation. Tricuspid Valve Structurally normal tricuspid valve without significant stenosis or regurgitation. Insufficient TR jet to calculate RVSP Pulmonic Valve Structurally normal pulmonic valve without significant stenosis. There is no pulmonic regurgitation. Pericardium Normal pericardium without effusion. Aorta Normal ascending aorta dimension. CONCLUSIONS Limited quality images because of poor ultrasonic windows LV systolic function is normal with EF of 55-60% Diastolic function is indeterminate Trace mitral regurgitation Compared to prior echocardiogram from 02/08/2020, no significant changes are noted Chauncey Wade MD (Electronically Signed) Final Date: 29 Mar 2021 11:53 S
--- NOTE | 2021-03-28 10:33 | PC.CHAP ---
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 [] Patient/Family/Request visit [] Outpatient visit [] Follow-up visit [] Physician referral [] Code/Alert [] Routine visit [] Staff referral [] Actively dying [] Patient sleeping [] Family support [] [] Out of room [] Palliative care [] [] Receiving care in room [] Pre-surgical visit [] Trauma [] Long length of stay [] ICU visit [] Other: Relational/Emotional Strength [] Patient feels connected with others/family/visitors/staff [] Distress [] Loneliness/isolation [] Abandonment Spirituality of Patient [] Person of Karen [] Attends Sikhism of their Karen [] Believes in Prayer [] Reads Bible or Jehovah'S Witness materials [] There are Spiritual issues to be addressed Laundry Marker Supervisor Interventions [] Prayer [] Active listening [] Non-anxious presence [] Spiritual/emotional support [] Crisis/trauma care [] Spiritual counseling [] Bereavement support [] Provided bereavement packet [] Provided Bible/devotional materials [] Provided toy/stuffed animal, coloring book to patient or family member [] Provided Communion [] Anointing/[place] [] Salvation [] Completed spiritual assessment [] Other: Impact on Illness or Injury [] Angry [] Fearful [] Anxious [] Often cries [] Exhaustion [] Unable to work [] Unable to attend yazidism [] Unable to walk/stand [] Unable to read [] Unable to drive [] Unable to eat/drink [] Unable to sleep [] Unable to be with family [] Patient intubated [] Other: Summary Time spent with patient
[2021-03-28 11:27] LABS: D Dimer 0.72 ug/mIFEU (0-0.59)
[2021-03-28 11:31] LABS: Procalcitonin 0.05 ng/mL (0-0.5)
[2021-03-28] MEDS: metoprolol tartrate 50 mg Tablet PO (11:38)
[2021-03-28 11:42] LABS: Iron 26 ug/dL (59-158); Percent Saturation 6.9 % (20-50); Total Iron Binding Capacity 372 mcg/dl; Unsaturated Iron Binding 346 ug/dL (112-347)
[2021-03-28 12:22] LABS: Influenza A by IFA Negative (Negative); Influenza B by IFA Negative (Negative)
--- NOTE | 2021-03-28 15:02 | P.PN_ITS ---
Subjective Subjective: Interval history: Admitted overnight. Patient states he has history of COPD and is on 3 L chronically. He states he is doing okay but a week ago he got cold and has been having more difficulty in breathing for last 2 days. Other sick contact and his girlfriend who is also been having cold and cough. He states he is bringing up green-colored phlegm for last 2 days. Denies any chest pain. Overnight patient blood pressure has been extremely elevated. Currently on 4 L nasal cannula saturating 94%. Vitals/I&O/Wt Last Vital Signs Temp 98.2 F 03/28/21 12:00 Pulse 76 03/28/21 15:01 Resp 20 H 03/28/21 14:56 BP 194/92 03/28/21 12:00 Pulse Ox 97 03/28/21 14:56 03/28/21 03/28/21 03/28/21 06:59 14:59 22:59 Intake Total 480 / 480 Output Total 175 / 175 500 / 500 Balance -175 / -175 -20 / -20 Weight last 48 hrs Weight 53.524 kg Physical Exam Narrative: EXAM NARRATIVE: The patient is awake alert and oriented. Mild to moderate distress secondary to shortness of breath. Mood and affect are appropriate. Responses are adequate. Skin is warm and dry. Moist mucous membranes. Eyes PERRL, extraocular muscles are intact No dysarthria or aphasia. However he develops dyspnea when he speaks. Neck supple. No JVD Lungs decreased breath sounds and bilateral expiratory wheezes. Mild tachypnea. Heart S1, S2, regular Abdomen soft, nontender, bowel sounds are present Extremities no edema cyanosis or calf tenderness bilaterally Neuro examination is nonfocal. Data : 03/27/21 23:55 03/27/21 23:55 Micro: Microbiology 03/28/21 11:15 Blood Culture - Preliminary Blood SPECIMEN COLLECTED 03/28/21 11:10 Blood Culture - Preliminary Blood SPECIMEN COLLECTED A&P Assessment and plan (1) Hypertensive urgency: Status: Acute (2) Acute exacerbation of chronic obstructive airways disease: Status: Acute (3) Iron deficiency: Status: Acute Additional A&P Information 71-year-old male with past medical history of advanced COPD, hypertension, tobacco abuse who is presenting with shortness of breath and cough Acute on chronic hypoxic respiratory failure secondary to COPD: Chronically lives on 3 L. No white count, no history of fever. Infection less likely. Check procalcitonin, urine Legionella, bacterial antigen, sputum culture. For now start patient on azithromycin 5 mg oral daily. Check D-dimer. DuoNebs every 4 hour, budesonide twice daily. Oxygen supplementation giving saturation 92%. For now decrease Solu-Medrol to 40 every 8 hours. Will wean steroids within next 24 hours as able. No evidence of pneumonia. His white blood cell count is elevated probably due to steroids received from EMS. Findings are consistent with COPD acute exacerbation probably due to continues tobacco smoking. Hypertensive urgency: Patient states he is compliant to his medications. Blood pressure extremely elevated. Continue the clonidine patch. Will increase to home dose of lisinopril to 40 mg. Add amlodipine 10 mg and Coreg 6.25 mg twice daily. Will uptitrate medications accordingly. Goal blood pressure less than 140/90 mmHg. Check echocardiogram. proBNP within normal limits on admission. Check iron panel, ferritin. TSH recently checked in January to be within normal limits. Discussed in detail regarding smoking abstinence. CODE STATUS: Discussed in detail with the patient. He states he does not want to be on life support. Does not want any chest compressions. He states his daughter had to put her son and brother of the life support recently and does not want his daughter to go to that ever again. CODE STATUS changed system to allow natural . Cardiac diet. Lovenox for DVT prophylaxis. Attestations Medical Necessity Statement*: Requires further hospitalization for management of acute on chronic hypoxic respiratory failure because of COPD exacerbation, hypertensive urgency. Time Spent in Patient Care: Greater than 35 minutes (>than 50% of time spent in counselling and/or direct pt care on unit) . Coding Level of Care Code Acute Director Of Distance Learning for Priscilla Tavares Diagnoses Hypertensive urgency I16.0 Acute exacerbation of chronic obstructive airways disease J44.1 Iron deficiency E61.1
[2021-03-28 15:36] LABS: Urine Appearance Clear (CLEAR); Urine Color Yellow (Yellow); pH Urine 7 (5-7)
[2021-03-28 15:37] LABS: Bilirubin Urine Neg (Negative); Blood Urine 2+ (Negative); Glucose Urine UA Norm (Normal); Ketones Urine Negative (Negative); Leukocyte Esterase Urine Negative (Negative); Nitrate Urine Negative (Negative); Protein Urine Neg (Negative); Urobilinogen Urine 1 mg/dL (Negative)
[2021-03-28 15:38] LABS: Add Urine Culture? No; Bacteria Urine TRACE /hpf; Squamous Epithelial Cell Urine RARE /hpf (0-5); WBC Urine 0-4 /hpf (0-5)
[2021-03-28] MEDS: hyDRALAzine 20 mg/mL INJ 1 mL 5 MG IVP ×2 (17:09→21:22)
[2021-03-28] MEDS: amlodipine 10 mg Tablet PO (17:09)
[2021-03-28] MEDS: acetaminophen 325 mg Tablet 650 MG PO (17:09)
--- NOTE | 2021-03-28 18:14 | PC.RESP ---
Smoking Cessation and Pulmonary Rehab information sent to patient.
[2021-03-28] MEDS: budesonide 0.5 mg/2 mL Neb INHALATION (20:07)
[2021-03-28] MEDS: atorvastatin 40 mg Tablet PO (21:22)
[2021-03-28] MEDS: tamsulosin 0.4 mg Capsule PO (21:22)
[2021-03-28] MEDS: carvedilol 12.5 mg Tablet PO (21:22)
[2021-03-29] VITALS (21 sets, daily range): BP systolic 140–200; BP diastolic 62–120; PULSE 87–118; RESP 16–26; TEMP 36.4–36.7; O2SAT 94–99
[2021-03-29] MEDS: ipratropium-albuterol 3 mL Neb INHALATION ×5 (03:07→20:02)
[2021-03-29] MEDS: enoxaparin 40 mg/0.4 mL Syringe SUBCUT (05:06)
[2021-03-29] MEDS: hyDRALAzine 20 mg/mL INJ 1 mL 10 MG IVP ×2 (05:07→18:32)
[2021-03-29 06:03] LABS: Hematocrit 52.1 % (42.0-52.0); Hemoglobin 15.9 g/dL (11.7-16.6); Mean Corpuscular HGB Conc 30.5 g/dL (30.0-36.0); Mean Corpuscular Hemoglobin 25.9 pg (28.0-34.0); Mean Corpuscular Volume 84.7 fL (80-94); Mean Platelet Volume 13.1 fL (7.4-10.4); Platelet Count 211 10^3/cmm (130-400); Red Blood Count 6.15 10^6/uL (4.1-5.3); Red Cell Distribution Width 18.6 % (12.1-15.1); White Blood Count 17.9 10^3/uL (4.0-10.0)
--- NOTE | 2021-03-29 06:13 | CTR_ITS ---
PROCEDURE INFORMATION: Exam: CTA Chest With Contrast Exam date and time: 03/29/2021 6:15 AM Age: 71 years old Clinical indication: Shortness of breath; Prior surgery TECHNIQUE: Imaging protocol: Computed tomographic angiography of the chest with contrast. 3D rendering (Not supervised by radiologist): MIP and/or 3D reconstructed images were created by the technologist. Radiation optimization: All CT scans at this facility use at least one of these dose optimization techniques: automated exposure control; mA and/or kV adjustment per patient size (includes targeted exams where dose is matched to clinical indication); or iterative reconstruction. Contrast material: OMNI 350; Contrast volume: 74 ml; Contrast route: INTRAVENOUS (IV); COMPARISON: CT angio chest PE protcl [id number] 02/08/2020 4:34 AM RADIATION DOSE METRICS: Total DLP (mGy-cm): 546.1 FINDINGS: Evaluation is somewhat limited by positioning and beam hardening artifact Pulmonary arteries: No pulmonary embolus in the visualized pulmonary arteries. Aorta: Calcification and ectasia of the thoracic aorta. Lungs: COPD, interstitial prominence, and trace basilar airspace disease. Pleural spaces: No significant pleural effusion. Heart: Coronary artery calcification and left ventricular hypertrophy. Lymph nodes: No pathologically enlarged lymph nodes. Gallbladder and bile ducts: Cholelithiasis. Bones/joints: Left shoulder arthroplasty. Healing left scapular fracture and multiple thoracolumbar spine compression fractures. Degenerative change. Exaggerated thoracic kyphosis. 5 mm bone island in the T10 vertebra. Other findings: Multiple surgical clips in the posterior mediastinum and upper abdomen. CT/CT angio chest PE protcl [id number] IMPRESSION: 1. No pulmonary embolus in the visualized pulmonary arteries. 2. Additional findings as described above. Radiation Dose CTDIVOL = (mGy): DLP = 546.1 (mGy-cm)
[2021-03-29 06:23] LABS: Eosinophils 0 %; Lymphocytes 2 %; Lymphocytes Absolute 0.4 10^3/cmm (1.2-3.4); Monocytes Absolute 2.5 10^3/cmm (0.1-0.6); Platelet Estimate Normal (Normal); Segmented Neutrophils 84 %; Total Cells Counted 100 (0-100)
[2021-03-29 06:25] LABS: Alanine Aminotransferase 23 U/L (0-41); Alkaline Phosphatase 110 IU/L (40-130); Anion Gap 13.3 (5-19); Aspartate Amino Transferase 32 U/L (0-40); Blood Urea Nitrogen 17 mg/dL (8-23); Calcium 8.4 mg/dL (8.5-10.5); Carbon Dioxide 30 mmol/L (22-29); Chloride 99 mmol/L (98-107); Globulin 3.3 g/dL (1.3-4.6); Glomerular Filtration Rate 213.3 mL/min (90-130); Glucose 111 mg/dL (65-115); Osmolality Calculated 288 mOsm/kg (285-295); Potassium 4.3 mmol/L (3.5-5.1); Sodium 138 mmol/L (136-145); Total Bilirubin 0.5 mg/dL (0.15-1.2); Total Protein 7.3 g/dL (6.6-8.7)
[2021-03-29 06:31] LABS: Estmated Average Glucose 103; Hemoglobin A1C 5.2 % (4.0-6.0)
--- NOTE | 2021-03-29 07:41 | PC.NURSE ---
I reported the high bp and pulse to the nurse
[2021-03-29] MEDS: budesonide 0.5 mg/2 mL Neb INHALATION ×2 (08:03→20:01)
--- NOTE | 2021-03-29 08:13 | PC.RESP ---
Therapist explained Bipap to patient. Patient stated that he did not do very well with Bipap last time. Patient stated that he does not want Bipap at this time. Therapist reassured patient that if breathing was worse or if patient needed help Bipap was an option.
[2021-03-29] MEDS: aspirin 325 mg Tablet PO (08:14)
[2021-03-29] MEDS: amlodipine 10 mg Tablet PO (08:14)
[2021-03-29] MEDS: tizanidine 4 mg Tablet PO ×2 (08:14→18:32)
[2021-03-29] MEDS: gabapentin 300 mg Capsule 600 MG PO ×3 (08:14→21:09)
[2021-03-29] MEDS: carvedilol 12.5 mg Tablet PO ×2 (08:14→21:10)
[2021-03-29] MEDS: lisinopril 20 mg Tablet 40 MG PO (08:14)
[2021-03-29] MEDS: ergocalciferol (vitamin D2) 50,000 Unit Capsule 50000 UNIT PO (08:18)
--- NOTE | 2021-03-29 10:40 | PC.CHAP ---
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 [] Patient/Family/Request visit [] Outpatient visit [] Follow-up visit [] Physician referral [] Code/Alert [x] Routine visit [] Staff referral [] Actively dying [] Patient sleeping [] Family support [] [] Out of room [] Palliative care [] [] Receiving care in room [] Pre-surgical visit [] Trauma [] Long length of stay [] ICU visit [] Other: Relational/Emotional Strength [x] Patient feels connected with others/family/visitors/staff [] Distress [] Loneliness/isolation [] Abandonment Spirituality of Patient x Person of Karen [] Attends Congregation of their Karen [] Believes in Prayer [] Reads Bible or Zoroastrian materials [] There are Spiritual issues to be addressed Appliance Counselor Interventions [x] Prayer [x] Active listening [] Non-anxious presence [x] Spiritual/emotional support [] Crisis/trauma care [] Spiritual counseling [] Bereavement support [] Provided bereavement packet [x] Provided Bible/devotional materials [] Provided toy/stuffed animal, coloring book to patient or family member [] Provided Communion [] Anointing/[place] [] Salvation [x] Completed spiritual assessment [] Other: Impact on Illness or Injury [] Angry [] Fearful [] Anxious [] Often cries [] Exhaustion [] Unable to work [] Unable to attend quaker [] Unable to walk/stand [] Unable to read [] Unable to drive [] Unable to eat/drink [] Unable to sleep [] Unable to be with family [] Patient intubated [] Other: Summary patient seemed weak Time spent with patient 10 min
--- NOTE | 2021-03-29 20:12 | PM.PN ---
Subjective Subjective: Interval history: Frail-appearing elderly gentleman sitting up in chair, hard of hearing, pleasant, generally weak, but not in any distress. Denies any chest pain or pressure. Has not been coughing up any phlegm. Vitals/I&O/Wt Last Vital Signs Temp 97.8 F 03/29/21 19:14 Pulse 101 H 03/29/21 20:07 Resp 19 H 03/29/21 20:02 BP 161/87 03/29/21 19:14 Pulse Ox 94 03/29/21 20:02 03/29/21 03/29/21 03/29/21 06:59 14:59 22:59 Intake Total 480 / 480 240 / 720 Output Total 1050 / 2350 125 / 125 450 / 575 Balance -1050 / -1750 355 / 355 -210 / 145 Weight last 48 hrs Weight 53.524 kg Physical Exam Const: COMMON NORMALS: no acute distress and patient oriented x3 GENERAL APPEARANCE: frail appearing HENMT: COMMON NORMALS: oropharynx normal Neck/C-Spine: COMMON NORMALS: no JVD Resp: COMMON NORMALS: normal respiratory effort AUSCULTATION: wheezes and diminished lung sounds Cardio: COMMON NORMALS: no JVD, regular rhythm, S1 normal heart sound present, S2 normal heart sound present and No murmurs present (Cardio) RHYTHM: regular rhythm HEART SOUNDS: S1 normal heart sound present and S2 normal heart sound present GI: COMMON NORMALS: Normal to inspection, nondistended, normoactive bowel sounds present, Soft to palpation and non-tender PALPATION: Yes Soft to palpation Extremity: COMMON NORMALS: no joint enlargement and no pedal edema Neuro: COMMON NORMALS: patient oriented x3 and moves all extremities Skin: COMMON NORMALS: no rashes or lesions noted GENERAL SKIN EXAM: no rashes or lesions noted Data : 03/29/21 05:18 03/29/21 05:18 Micro: Microbiology 03/28/21 11:15 Blood Culture - Preliminary Blood NEGATIVE TO DATE 03/28/21 11:10 Blood Culture - Preliminary Blood NEGATIVE TO DATE 03/28/21 17:15 Gram Stain - Final Sputum - Expectorated Sputum 03/28/21 11:48 MRSA Culture - Final Nose 03/28/21 14:22 Bacterial Antigens - Final Urine Kidney 03/28/21 14:22 Legionella Urinary Antigen - Final Urine,Clean Catch A&P Assessment and plan (1) Acute exacerbation of chronic obstructive airways disease: Persistent wheezing, requiring 5 L oxygen severe exacerbation of COPD. See says he is having trouble bringing up phlegm. Does state that his symptoms/nasal dryness has improved somewhat with addition of humidifier to the nasal cannula oxygen. At this time due to severity wheezing and worse hypoxia than usual continue IV steroid. Add Mucinex. He states he has been working well with I-S and flutter valve. Status: Acute (2) Hypertensive urgency: Blood pressure somewhat variable and very high this morning up to 200/120 given hydralazine IV. Subsequently blood pressure is better. Continue lisinopril. Amlodipine. Carvedilol. Flomax. Status: Acute (3) Iron deficiency: Receiving iron replacement. Status: Acute Additional A&P Information Smoking addiction: Continue to encourage cessation. Attestations Medical Necessity Statement*: Continue admission for assessment management of COPD exacerbation, acute on chronic hypoxia. Coding Level of Care Code Acute Grocery Shopper for Priscilla Tavares Diagnoses Acute exacerbation of chronic obstructive airways disease J44.1 Hypertensive urgency I16.0 Iron deficiency E61.1
[2021-03-29] MEDS: tamsulosin 0.4 mg Capsule PO (21:09)
[2021-03-29] MEDS: atorvastatin 40 mg Tablet PO (21:09)
[2021-03-30] VITALS (10 sets, daily range): BP systolic 131–159; BP diastolic 81–97; PULSE 68–90; RESP 16–18; TEMP 36.5–36.9; O2SAT 85–96
[2021-03-30] MEDS: enoxaparin 40 mg/0.4 mL Syringe SUBCUT (03:09)
--- NOTE | 2021-03-30 05:11 | PC.NURSE ---
SHIFT SUMMARY Patient rested well throughout the night in the recliner. Patient denied any major shortness of breath. Patient's systolic blood pressure remained below 165 throughout the shift so no hydralazine was needed.
[2021-03-30] MEDS: gabapentin 300 mg Capsule 600 MG PO ×2 (08:31→12:20)
[2021-03-30] MEDS: ferrous gluconate 324 mg Tablet PO (08:31)
[2021-03-30] MEDS: lisinopril 20 mg Tablet 40 MG PO (08:31)
[2021-03-30] MEDS: tizanidine 4 mg Tablet PO (08:31)
[2021-03-30] MEDS: guaiFENesin 600 mg Tablet PO (08:31)
[2021-03-30] MEDS: aspirin 325 mg Tablet PO (08:32)
[2021-03-30] MEDS: carvedilol 12.5 mg Tablet PO (08:32)
[2021-03-30] MEDS: amlodipine 10 mg Tablet PO (08:32)
[2021-03-30] MEDS: ipratropium-albuterol 3 mL Neb INHALATION ×2 (09:24→14:21)
[2021-03-30] MEDS: budesonide 0.5 mg/2 mL Neb INHALATION (09:24)
[2021-03-30 12:40] LABS: Basophils % 0.2 %; Eosinophils % 0.3 %; Hematocrit 53.8 % (42.0-52.0); Hemoglobin 16.3 g/dL (11.7-16.6); Lymphocytes # 0.4 10^3/uL (0.8-4.8); Mean Corpuscular HGB Conc 30.3 g/dL (30.0-36.0); Mean Corpuscular Hemoglobin 26.3 pg (28.0-34.0); Mean Corpuscular Volume 86.8 fL (80-94); Mean Platelet Volume 12.5 fL (7.4-10.4); Monocytes # 1.3 10^3/uL (0.2-0.9); Neutrophils # 11.78 10^3/uL (1.8-7.7); Neutrophils % 84.6 %; Nucleated Red Blood Cells % 0 %; Platelet Count 182 10^3/cmm (130-400); Red Cell Distribution Width 18.4 % (12.1-15.1); White Blood Count 13.9 10^3/uL (4.0-10.0)
[2021-03-30 13:20] LABS: Blood Urea Nitrogen 43 mg/dL (8-23); Calcium 8.4 mg/dL (8.5-10.5); Carbon Dioxide 23 mmol/L (22-29); Chloride 96 mmol/L (98-107); Glomerular Filtration Rate 133.6 mL/min (90-130); Glucose 133 mg/dL (65-115); Osmolality Calculated 283 mOsm/kg (285-295); Sodium 130 mmol/L (136-145)
[2021-03-30 13:26] LABS: Anion Gap 15.9 (5-19); Potassium 4.9 mmol/L (3.5-5.1)
--- NOTE | 2021-03-30 13:30 | PM.DCS ---
Discharge Providers Date of Admission: 03/28/21 02:37 Date of Discharge: March 30, 2021 Attending Provider at Admission: Ernesto Palacio Attending Provider at Discharge: Flavio Arguelles Primary Care Provider: BERNADETTE Sanchez Diagnoses at Discharge Discharge Diagnosis (1) Acute exacerbation of chronic obstructive airways disease: Status: Acute (2) Hypertensive urgency: Status: Acute (3) Iron deficiency: Status: Acute Reason for Visit Reason for Visit: sob x 1 week Hospital Course Hospital Course Pleasant 71 gentleman with COPD, current smoker, number of other comorbidities including chronic anemia, was admitted due to progressive worsening of shortness of breath for about a week or so, found to be in acute hypoxic respiratory failure with severe COPD exacerbation. He is on chronic oxygen 3 L at home, however, required 6-7 L of oxygen on admission. Was treated with IV steroids, nebulizer treatments, pulmonary toilet, worked well with respiratory therapy, etc. spirometer, flutter valve. During the hospitalization was unable to produce a sputum sample for culture, with Mucinex today appears to be producing sputum as his symptoms are improving and with addition of Mucinex. His oxygenation improved, currently weaned down to 4 L oxygen by nasal cannula. He is feeling much better, and request to return home. During the hospitalization was also treated for hypertensive urgency on presentation, blood pressure significantly high, but responded with treatment, with continuation of clonidine, tamsulosin as well as addition of amlodipine, carvedilol in the hospital. He is asked to continue to monitor blood pressures. These are anticipated to continue to improve on tapering of the steroids as well. Received iron replacement for iron deficiency anemia. Please follow-up, consider additional evaluation once he is out of acute episode of illness. Physical Exam Const: COMMON NORMALS: no acute distress and patient oriented x3 GENERAL APPEARANCE: frail appearing HENMT: COMMON NORMALS: oropharynx normal Neck/C-Spine: COMMON NORMALS: no JVD Resp: COMMON NORMALS: normal respiratory effort AUSCULTATION: wheezes (Resolving) and diminished lung sounds (Significantly improved) Cardio: COMMON NORMALS: no JVD, regular rhythm, S1 normal heart sound present, S2 normal heart sound present and No murmurs present (Cardio) RHYTHM: regular rhythm HEART SOUNDS: S1 normal heart sound present and S2 normal heart sound present GI: COMMON NORMALS: Normal to inspection, nondistended, normoactive bowel sounds present, Soft to palpation and non-tender PALPATION: Yes Soft to palpation Extremity: COMMON NORMALS: no joint enlargement and no pedal edema Neuro: COMMON NORMALS: patient oriented x3 and moves all extremities Skin: COMMON NORMALS: no rashes or lesions noted GENERAL SKIN EXAM: no rashes or lesions noted Discharge Data Data Completed and Pending: Completed Studies During Hospitalization Category Date Time Status CT angio chest PE protcl [id number] Stat Cat Scan 03/29/21 06:13 Completed XR chest 1V krzysztof ble [id number] Urgent Exams 03/27/21 23:42 Completed CV echo complete* [id number] Routine Ultrasound 03/28/21 10:07 Completed Pending at discharge Category Date Time Status Basic Metabolic P ej AM LABS Lab 03/31/21 04:00 Ordered Basic Metabolic P ej AM LABS Lab 04/01/21 04:00 Ordered Blood Culture Sta t Lab 03/28/21 11:15 Results Complete Blood Co unt w/Auto AM LABS Lab 03/31/21 04:00 Ordered Complete Blood Co unt w/Auto AM LABS Lab 04/01/21 04:00 [facility]put[facility] 03/28/21 17:15 Results Labs from last 24 hours 03/30/21 03/30/21 12:30 12:30 WBC 13.9 H RBC 6.20 H Hgb 16.3 Hct 53.8 H MCV 86.8 MCH 26.3 L MCHC 30.3 RDW 18.4 H Plt Count 182 MPV 12.5 H Neut % (Auto) 84.6 Lymph % (Auto) 3.0 [place] % (Auto) 9.0 Eos % (Auto) 0.3 Baso % (Auto) 0.2 Neut # (Auto) 11.78 H Lymph # (Auto) 0.4 L [place] # (Auto) 1.3 H Eos # (Auto) 0.0 Baso # (Auto) 0.0 Nucleated RBC % (a uto) 0 Nucleated RBCs # 0.0 Sodium 130 L Potassium 4.9 Chloride 96 L Carbon Dioxide 23 Anion Gap 15.9 BUN 43 H Creatinine 0.6 L GFR Calculation 133.6 H Glucose 133 H Calculated Osmolal ity 283 L Calcium 8.4 L Vitals: Last Vital Signs Temp 98.2 F 03/30/21 07:46 Pulse 74 03/30/21 09:37 Resp 18 03/30/21 09:24 BP 157/97 03/30/21 07:46 Pulse Ox 93 03/30/21 09:24 Discharge Plan Discharge Patient Disposition: Home Condition: Stable Prescriptions: New amlodipine 10 mg Tablet 10 mg PO DAILY Qty: 30 RF: 0 carvedilol 12.5 mg Tablet 12.5 mg PO BID@0900,2100 Qty: 60 RF: 0 guaifenesin [Mucinex] 600 mg Tablet Extended Release 12hr 600 mg PO BID Qty: 14 RF: 0 doxycycline hyclate 100 mg tablet 100 mg PO BID 7 Days Qty: 14 RF: 0 prednisone 20 mg tablet 20 mg PO DAILY Qty: 11 RF: 0 Continued tizanidine 4 mg tablet 4 mg PO BID Qty: 60 RF: 5 Pristiq 100 mg tablet extended release 24 hr 100 mg PO DAILY@0800 Qty: 30 RF: 5 atorvastatin 40 mg tablet 40 mg PO BEDTIME@2100 Qty: 30 RF: 5 gabapentin 300 mg capsule 600 mg PO TID@,, Qty: 180 RF: 5 Naprosyn 500 mg tablet 500 mg PO BID@0800,2100 Qty: 60 RF: 5 Flomax 0.4 mg capsule 0.4 mg PO DAILY@0800 Qty: 30 RF: 5 albuterol sulfate 2.5 mg /3 mL (0.083 %) solution for nebulization 2.5 mg INHALATION Q4H Qty: 300 RF: 5 Pulmicort 0.5 mg/2 mL suspension for nebulization 0.5 mg INHALATION BID@, Qty: 120 RF: 5 Perforomist 20 mcg/2 mL solution for nebulization 2 ml INHALATION Q12H Qty: 60 RF: 5 clonidine 0.1 mg/24 hr patch weekly 1 patch transdermal .weekly Qty: 4 RF: 5 (DME) nebulizers Misc See Rx Instructions .ROUTE .MEDSUPPLY Qty: 1 RF: 0 aspirin 325 mg tablet 325 mg PO DAILY@0800 RF: 0 Changed lisinopril 20 mg tablet 40 mg PO DAILY@0800 Qty: 30 RF: 5 Discharge Orders: Discharge Order (Routine); Ordered 03/30/21 Ordered By: Flavio Arguelles Referrals: Pulmonary [Provider Group] - 2 weeks Venkata Teran FNP-C [Primary Care Provider] - 4-7 days Discharge Diet: Cardiac Discharge Activity: Increase activity as tolerated and Oxygen as instructed Patient Instructions: Opioid Safety Activity Restrictions/Additional Instructions: We started oxygen saturation at home of 88-92%. Issues are getting progressively more short of breath, and experienced chest pain, no fever, or other concerning symptoms, please seek medical attention without delay. Please stop smoking. Continued smoking will lead to progression/worsening of your lung disease, shortness of breath. Will also lead to additional issues including cardiovascular disease, various cancers. Please never smoke in your and your oxygen due to severe fire hazard. Please continue to monitor your blood pressures at home. Please 3 times daily, write down values to bring to appointment. In case her blood pressures are significantly elevated with top number above 190 or bottom number above 100, please call 911. Please follow-up with your primary doctor regarding anemia, iron deficiency. Please discuss additional work-up and consideration of endoscopic evaluation. Discharge Attestations Time Spent in Discharge Care*: greater than 30 min Quality Metrics Clinical Quality Measures During this hospital stay, did patient experience: None Coding Level of Care Code Acute [facility] note Diagnoses Acute exacerbation of chronic obstructive airways disease J44.1 Hypertensive urgency I16.0 Iron deficiency E61.1
--- NOTE | 2021-03-31 11:40 | PC.SOCIAL ---
Notified by Jose Alberto in the lab that sputum culture showing two different organisms. Haemophilus Influenzae Heavy growth and Streptococcus Pneumoniae Moderate growth. The Strep Pneumoniae may be penicillin resistant. Will follow up on sensitivity results tomorrow if available. Notified Dr Arguelles. Order to call and check on patient and follow up on sensitivities tomorrow. Patient called and notified that two organisms noted in sputum culture. Verified he did get the Doxycycline ordered at [place]. He is also taking the Mucinex and other medications prescribed. He is not feeling any worse but about the same. Afebrile, no increase sob, and no N/V. He is aware this nurse will follow up after the sensitivities have returned and hopefully will happen tomorrow. Encourage to continue with current treatment ordered at this time.
--- NOTE | 2021-04-04 12:27 | PC.SOCIAL ---
Sensitiviites back on culture results. Talked with Dr Arguelles and he has ordered Levaquin 750mg once daily for 7 days and sent script to [facility]. He also ordered chest xray to be done tomorrow. Tried to reach patient around 9am unable to reach but left message. Called again at 12:15 pm and was able to reach [employer] other. Explained that script will need to be picked up at [facility] as soon as possible and all medication completed. Also advised to have patient get chest x ray tomorrow and per her she thinks [facility] as capabilities to do this. Sent email with copy of order to Venkata and Fidelia at [facility] and also updated them regarding the new antibiotic prescribed. No questions voiced at this time by [employer] other when information reviewed.Venkata is PCP and will be following up on x ray result.
== END 2021-03-30 17:00 | disposition home or self-care (01) | DRG 190 ==
LOC: ER 03-28 01:42 → MEDSURG 03-28 02:06
PROVIDERS: Student in an Organized Health Care Education/Training Program; Admitting Provider Internal Medicine; Emergency Provider Emergency Medicine; PCP Nurse Practitioner; Visit Provider Internal Medicine
DX: J44.1 Chronic obstructive pulmonary disease with (acute) exacerbation (principal); J96.21 Acute and chronic respiratory failure with hypoxia; Z99.81 Dependence on supplemental oxygen; I10 Essential (primary) hypertension; F17.210 Nicotine dependence, cigarettes, uncomplicated; F41.9 Anxiety disorder, unspecified; K91.1 Postgastric surgery syndromes; Z87.11 Personal history of peptic ulcer disease; Z85.828 Personal history of other malignant neoplasm of skin; E78.2 Mixed hyperlipidemia; Z90.3 Acquired absence of stomach [part of]; I16.0 Hypertensive urgency; D50.9 Iron deficiency anemia, unspecified; Z66 Do not resuscitate; Z79.51 Long term (current) use of inhaled steroids
CPT/HCPCS: 36415; 36600; 71045; 71275; 80048; 80053; 81001; 82805; 83036; 83540; 83550; 83880; 84145; 84484; 85007; 85025; 85378; 86403; 87040; 87070; 87077; 87186; 87205; 87449; 87641; 87804; 90471; 90732; 93005; 93306; 94640; 94664; 94760; 96372; 96374; 99285; G0378; J0360; J1650; J2930; J3490; J7611; J7626; Q9967

== ENCOUNTER → 2021-04-06 09:46 | Outpatient (BNVA) | payer MEDICARE, SELFPAY | PROVIDERS: PCP Nurse Practitioner; Visit Provider Nurse Practitioner | DX: J44.9 Chronic obstructive pulmonary disease, unspecified (principal) | CPT/HCPCS: 71046 ==

== ENCOUNTER 2021-04-18 10:02 | Outpatient (CLI) | payer MEDICARE, SELFPAY ==
--- NOTE | 2021-04-18 10:14 | XR_ITS ---
WS: [id number] Exam: XR chest 2V* [id number] Date/Time of Exam: 04/18/2021 10:19 AM Reason For Exam: resolution of pneumonia Comparison 04/06/2021. The lungs are hyperaerated plated and clear. No infiltrates or pleural effusions . Normal cardiomediastinal structures. Several old left-sided rib fractures. A reverse left shoulder prosthesis is noted. Surgical clips at the GE junction. XR/XR chest 2V* [id number] IMPRESSION: 1. Pulmonary hyperinflation which may indicate obstructive lung disease. No acu te process noted.
== END 2021-04-18 10:03 | disposition home or self-care (01) ==
PROVIDERS: PCP Nurse Practitioner; Visit Provider Internal Medicine Pulmonary Disease
DX: J18.9 Pneumonia, unspecified organism (principal)
CPT/HCPCS: 71046

== ENCOUNTER → 2021-06-01 09:59 | Outpatient (BNVA) | payer MEDICARE, SELFPAY | PROVIDERS: PCP Nurse Practitioner; Visit Provider Internal Medicine Pulmonary Disease | DX: R63.4 Abnormal weight loss (principal); J43.2 Centrilobular emphysema; E78.2 Mixed hyperlipidemia; E55.9 Vitamin D deficiency, unspecified; I10 Essential (primary) hypertension | CPT/HCPCS: 80048; 82105; 82378; 85025; 86301; G0103 ==

== ENCOUNTER → 2021-11-21 15:53 | Outpatient (BNVA) | payer MEDICARE, MEDICAID, SELFPAY | PROVIDERS: PCP Nurse Practitioner; Visit Provider Nurse Practitioner Family | DX: Z20.822 Contact with and (suspected) exposure to COVID-19 (principal); J40 Bronchitis, not specified as acute or chronic; R05.9 Cough, unspecified; J43.2 Centrilobular emphysema; I10 Essential (primary) hypertension | CPT/HCPCS: 80053; 87635 ==

== ENCOUNTER → 2022-01-16 08:53 | Outpatient (BNVA) | payer MEDICARE, MEDICAID, SELFPAY | PROVIDERS: PCP Nurse Practitioner; Visit Provider Nurse Practitioner | DX: I10 Essential (primary) hypertension (principal); J44.9 Chronic obstructive pulmonary disease, unspecified; E78.2 Mixed hyperlipidemia; F41.9 Anxiety disorder, unspecified; M54.16 Radiculopathy, lumbar region; R39.11 Hesitancy of micturition | CPT/HCPCS: 80053; 80061; 85025 ==

== ENCOUNTER 2022-03-08 21:29 | Emergency (ER) | payer MEDICARE, MEDICAID, SELFPAY ==
[2022-03-08 21:32] VITALS: BP 210/92; PULSE 116; RESP 26; TEMP 36.9; O2SAT 99; BMI 20.2
--- NOTE | 2022-03-08 21:36 | XRR_ITS ---
PROCEDURE INFORMATION: Exam: XR Chest Exam date and time: 03/08/2022 9:41 PM Age: 71 years old Clinical indication: Shortness of breath; Prior surgery; Surgery type: Total shoulder. Partial gastrectomy. ; Patient HX: C/O worsening SOB. History of copd and chf. TECHNIQUE: Imaging protocol: XR of the chest. Views: 1 view. COMPARISON: CR XR chest 2V* [id number] 04/18/2021 10:20 AM FINDINGS: Lungs: Mild chronic interstitial changes in both lungs with emphysema. No consolidation. Stable midthoracic compression fracture. Pleural spaces: Unremarkable. No pleural effusion. No pneumothorax. Heart/Mediastinum: Unremarkable. No cardiomegaly. Bones/joints: Left shoulder arthroplasty. Intraperitoneal space: Surgical clips in the upper abdomen. XR/XR chest 1V portable [id number] IMPRESSION: No acute findings.
[2022-03-08 21:59] VITALS: BP 163/97; PULSE 104; RESP 24; O2SAT 94
[2022-03-08 22:00] VITALS: PULSE 101; RESP 15; O2SAT 94
[2022-03-08] MEDS: ipratropium-albuterol 3 mL Neb INHALATION (22:00)
[2022-03-08 22:09] VITALS: BP 163/97; PULSE 103; PULSE 108; RESP 18; O2SAT 94
[2022-03-08 22:18] LABS: ABG PCO2 44.2 mmHg (35-45); ABG PH Result 7.41 (7.35-7.45); Base Excess ABG 2.9 mmol/L (-2.0-2.0); Blood Gas Allen Test Pos; Blood Gas Operator Identificat JB; Blood Gas Sample Site Radial, right; Blood Gas Sample Type Arterial; Carboxyhemoglobin 4.7 %THgb (0.4-20.1); HGB O2 Sat 86.5 % (95-100); Methemoglobin 1.1 % (0.4-1.5); Oxygen Device NC; PO2 ABG 61.4 mmHg (80.0-100.0); Total Hemoglobin 11.1 g/dL (14-18)
[2022-03-08 22:36] LABS: Basophils % 0.3 %; Eosinophils % 0.1 %; Hematocrit 38.3 % (42.0-52.0); Hemoglobin 11.4 g/dL (11.7-16.6); Lymphocytes # 0.8 10^3/uL (0.8-4.8); Lymphocytes % 6.2 %; Mean Corpuscular HGB Conc 29.8 g/dL (30.0-36.0); Mean Corpuscular Hemoglobin 23.4 pg (28.0-34.0); Mean Corpuscular Volume 78.6 fl (80-94); Monocytes # 2.8 10^3/uL (0.2-0.9); Neutrophils # 9.18 10^3/uL (1.8-7.7); Neutrophils % 68.3 %; Nucleated Red Blood Cells % 0 %; Platelet Count 219 10^3/cmm (130-400); Red Blood Count 4.87 10^6/uL (4.1-5.3); Red Cell Distribution Width 17.7 % (12.1-15.1); White Blood Count 13.5 10^3/uL (4.0-10.0)
[2022-03-08 22:39] VITALS: BP 169/101; PULSE 103; RESP 18; O2SAT 89
--- NOTE | 2022-03-08 22:57 | W.ED.SOB ---
HPI - SOB/Dyspnea General: Chief Complaint: Shortness of Breath/Dyspnea Stated Complaint: RESP. DISTRESS Time Seen by Provider: 03/08/22 21:31 Source: patient and EMS Mode of arrival: EMS Limitations: no limitations History of Present Illness: HPI Narrative: 71-year-old male who has an extensive history of COPD he is on 4 L oxygen at home at baseline. He had had a cataract surgery done today and he states that since then he has had increasing wheezing and dyspnea. Patient here is 96% on his 4 L patient did not receive any treatments or steroids in route he denies any pain denies any fever denies any cough. He denies any worsening proving factors. Associated symptoms: Deny abdominal pain, chest pain, fever(s), nausea or vomiting Review of Systems Const: Denies: fever(s), chills, body aches or change in appetite Eyes: Denies: blurry vision or eye discomfort ENMT: Denies: throat pain or dental pain Card: Denies: chest pain Resp: Reports: dyspnea and non-productive cough GI: Denies: abdominal pain, nausea, vomiting or diarrhea : Denies: dysuria Musc: Denies: neck pain or back pain Skin/Breast: Denies: rash Neuro: Denies: headache(s) Psych: Denies: depression Mina/Lymph: Denies: easy bruising All/Imm: Denies: urticaria PFSH ED PFSH: Medical History Acute exacerbation of chronic obstructive airways disease Anemia Anxiety COPD (chronic obstructive pulmonary disease) Dumping syndrome Esophageal stricture Essential hypertension Femur fracture Gastric ulcer History of nonmelanoma skin cancer Hypertension Malabsorption Microcytic anemia Mixed hyperlipidemia Seizure Shoulder arthritis Surgical History H/O esophagogastroduodenoscopy (10/13/20) for food bolus Normal colonoscopy S/P subtotal gastrectomy At age 19, 3 surgeries due to gastric ulcers and adhesions Family History Family/Other Gastric peptic ulcer Other CAD (coronary artery disease) Social History Smoking and tobacco status: current every day smoker cigarettes Packs smoked per day: 0.5 Years cigarettes smoked: 56 [ Other cigarette details: [id number]] Quit status (tobacco): considering quitting Second hand smoke exposure: Yes Smoking risk assessment/counseling performed?: Yes Alcohol intake: never Desire information about alcohol rehabilitation?: No Counseling given: No Desire information about substance/drug rehabilitation?: No Counseling given: No Adopted: No Caregiver/support person: No Lives independently: Yes Household members: significant other Housing: House Marital status: Single service: No Current occupational status: disabled Pets and animals: Yes History of recent travel: No Current gender identity: Male Physical Exam Const: COMMON NORMALS: patient oriented x3 GENERAL APPEARANCE: ill appearing HENMT: COMMON NORMALS: normocephalic and atraumatic HEAD & SCALP: normocephalic and atraumatic Eye: COMMON NORMALS: Equal, round and reactive pupils present and EOMs intact bilaterally PUPIL: Yes Equal, round and reactive pupils present Neck/C-Spine: COMMON NORMALS: full ROM and supple Chest: COMMONS NORMALS: normal inspection of the chest and normal palpation of entire chest wall Resp: COMMON NORMALS: normal respiratory effort, No retractions, No use of accessory muscles and clear to auscultation bilaterally AUSCULTATION: clear to auscultation bilaterally and wheezes Cardio: COMMON NORMALS: regular rate, regular rhythm and No murmurs present (Cardio) RATE: regular rate RHYTHM: regular rhythm GI: COMMON NORMALS: Normal to inspection, nondistended, normoactive bowel sounds present, Soft to palpation, non-tender and no masses PALPATION: Yes Soft to palpation Extremity: COMMON NORMALS: normal to inspection and full ROM Neuro: COMMON NORMALS: patient oriented x3, moves all extremities and no focal motor deficits Psych: COMMON NORMALS: mental status grossly normal, Normal thought process present and cooperative THOUGHT PROCESS: Normal thought process present Skin: COMMON NORMALS: no rashes or lesions noted and no wounds GENERAL SKIN EXAM: no rashes or lesions noted Course Vital Signs: Vital signs: Vital Signs Temperature 98.5 F 03/08/22 21:32 Pulse Rate 104 H 03/09/22 01:33 Respiratory Rate 16 03/09/22 01:33 Blood Pressure 178/93 03/09/22 01:33 Pulse Oximetry 98 03/09/22 01:33 MDM - SOB/Dyspnea Medical Decision Making Patient presents here with dyspnea is likely from his COPD CT showed no pulm embolism he is well-appearing here he is on his baseline oxygen we will place him on steroids and antibiotics he is to follow-up PCP and return if worsening. Lab Data : 03/08/22 21:50 03/08/22 21:50 Labs/Radiology: Radiology Impressions Chest X-Ray 03/08/22 21:36 IMPRESSION: No acute findings. Chest CTA 03/08/22 23:58 IMPRESSION: 1. No pulmonary embolism. 2. Mild opacities in the right lower lobe suggest low-grade infection. 3. Sclerotic bone lesions in the right scapula and T10 vertebra are increased in size since 03/29/2021. Possible metastases. Consider bone scan. 4. Multiple nodules in the right lung measuring up to 12 mm diameter are new since 03/29/2021. For patients at low risk (minimal or absent history of smoking and of other known risk factors), recommend CT Chest at 3-6 months, then consider CT Chest at 18-24 months. For patients at high risk (history of smoking or of other known risk factors), recommend CT Chest at 3-6 months, then CT Chest at 18-24 months. (Reference: Sanaz) 5. Multilevel thoracic and lumbar vertebral compression fractures are stable since 03/29/2021. 6. Incidental findings above. REFERENCES: Sanaz Disla, et al. Guidelines for Management of Incidental Pulmonary Nodules Detected on CT Images: From the Fleischner Society 2017. Radiology. 2017;284(1):228-243. Laboratory Results WBC 13.5 10^3/uL (4.0-10.0) H 03/08/22 21:50 RBC 4.87 10^6/uL (4.1-5.3) 03/08/22 21:50 Hgb 11.4 g/dL (11.7-16.6) L 03/08/22 21:50 Hct 38.3 % (42.0-52.0) L 03/08/22 21:50 MCV 78.6 fl (80-94) L 03/08/22 21:50 MCH 23.4 pg (28.0-34.0) L 03/08/22 21:50 MCHC 29.8 g/dL (30.0-36.0) L 03/08/22 21:50 RDW 17.7 % (12.1-15.1) H 03/08/22 21:50 Plt Count 219 10^3/cmm (130-400) 03/08/22 21:50 MPV 12.0 fL (7.4-10.4) H 03/08/22 21:50 Neut % (Auto) 68.3 % 03/08/22 21:50 Lymph % (Auto) 6.2 % 03/08/22 21:50 [place] % (Auto) 21.0 % 03/08/22 21:50 Eos % (Auto) 0.1 % 03/08/22 21:50 Baso % (Auto) 0.3 % 03/08/22 21:50 Neut # (Auto) 9.18 10^3/uL (1.8-7.7) H 03/08/22 21:50 Lymph # (Auto) 0.8 10^3/uL (0.8-4.8) 03/08/22 21:50 [place] # (Auto) 2.8 10^3/uL (0.2-0.9) H 03/08/22 21:50 Eos # (Auto) 0.0 10^3/uL (0.0-0.8) 03/08/22 21:50 Baso # (Auto) 0.0 10^3/uL (0.0-0.1) 03/08/22 21:50 Nucleated RBC % (auto) 0 % 03/08/22 21:50 Nucleated RBCs # 0.0 /100WBC 03/08/22 21:50 D-Dimer 2.33 ug/mIFEU (0-0.59) H 03/08/22 23:05 Specimen Type Arterial 03/08/22 22:02 Sample Site Radial, right 03/08/22 22:02 ABG pH 7.41 (7.35-7.45) 03/08/22 22:02 ABG pCO2 44.2 mmHg (35-45) 03/08/22 22:02 ABG pO2 61.4 mmHg (80.0-100.0) L 03/08/22 22:02 ABG HCO3 28.0 mmol/L (22-26) H 03/08/22 22:02 ABG Base Excess 2.9 mmol/L (-2.0-2.0) H 03/08/22 22:02 Jaime Test Pos 03/08/22 22:02 Hematocrit 34.0 % (42-52) L 03/08/22 22:02 Hgb O2 Saturation 86.5 % (95-100) L 03/08/22 22:02 Carboxyhemoglobin 4.7 %THgb (0.4-20.1) 03/08/22 22:02 Methemoglobin 1.1 % (0.4-1.5) 03/08/22 22:02 Total Hemoglobin 11.1 g/dL (14-18) L 03/08/22 22:02 O2 Delivery Device Nc 03/08/22 22:02 O2 Liters/Min 4.0 % 03/08/22 22:02 Continuous Conveyor Screen Drier ID Silvino 03/08/22 22:02 Sodium 138 mmol/L (136-145) 03/08/22 21:50 Potassium 4.0 mmol/L (3.5-5.1) 03/08/22 21:50 Chloride 102 mmol/L (98-107) 03/08/22 21:50 Carbon Dioxide 24 mmol/L (22-29) 03/08/22 21:50 Anion Gap 16.0 (5-19) 03/08/22 21:50 BUN 8 mg/dL (8-23) 03/08/22 21:50 Creatinine 0.6 mg/dL (0.7-1.2) L 03/08/22 21:50 GFR Calculation 133.6 mL/min (90-130) H 03/08/22 21:50 Glucose 125 mg/dL (65-115) H 03/08/22 21:50 Calculated Osmolality 286 mOsm/kg (285-295) 03/08/22 21:50 Calcium 9.1 mg/dL (8.5-10.5) 03/08/22 21:50 Total Bilirubin 0.2 mg/dL (0.15-1.2) 03/08/22 21:50 AST 28 U/L (0-40) 03/08/22 21:50 ALT 21 U/L (0-41) 03/08/22 21:50 Alkaline Phosphatase 139 IU/L (40-130) H 03/08/22 21:50 NT-Pro-B Natriuret Pep 362 pg/mL (0-125) H 03/08/22 21:50 Total Protein 7.1 g/dL (6.6-8.7) 03/08/22 21:50 Albumin 4.0 g/dL (3.5-5.2) 03/08/22 21:50 Globulin 3.1 g/dL (1.3-4.6) 03/08/22 21:50 EKG Data EKG 1: I personally reviewed and interpreted this EKG as follows: EKG Interpretation Date: 03/08/22 EKG interpretation time: 23:17 Interpretation: nsr hr [address] or t wave abnormalities qrs 76 qtc 385 Discharge Plan Discharge Patient Disposition: Home Clinical Impression: Asthma exacerbation in COPD Condition: Stable Prescriptions: New cephalexin 500 mg capsule 500 mg PO TID 7 Days Qty: 21 0RF prednisone 50 mg tablet 50 mg PO DAILY Qty: 5 0RF No Action albuterol sulfate 2.5 mg /3 mL (0.083 %) solution for nebulization 2.5 mg INHALATION Q4H Qty: 300 5RF Pulmicort 0.5 mg/2 mL suspension for nebulization 0.5 mg INHALATION BID@ Qty: 120 5RF cholecalciferol (vitamin D3) 125 mcg (5,000 unit) capsule 125 mcg PO DAILY Qty: 30 2RF Perforomist 20 mcg/2 mL solution for nebulization 2 ml INHALATION Q12H Qty: 60 5RF imiquimod 5 % cream in packet 1 applic topical .qhs Qty: 24 2RF Rx Instructions: Apply thin film qhs M-F (off weekends) for 6 weeks. promethazine-DM 6.25-15 mg/5 mL syrup 5 - 10 ml PO Q6H PRN (Reason: cough) Qty: 240 0RF amlodipine 5 mg tablet 5 mg PO DAILY Qty: 30 5RF atorvastatin 40 mg tablet 40 mg PO BEDTIME@2100 Qty: 30 5RF clonidine 0.1 mg/24 hr patch weekly 1 patch transdermal .weekly Qty: 4 5RF Rx Instructions: on Fridays Pristiq 100 mg tablet extended release 24 hr 100 mg PO DAILY@0800 Qty: 30 5RF gabapentin 300 mg capsule 600 mg PO TID@,, Qty: 180 5RF lisinopril 20 mg tablet 40 mg PO DAILY@0800 Qty: 60 5RF Naprosyn 500 mg tablet 500 mg PO BID@0800,2100 Qty: 60 5RF Flomax 0.4 mg capsule 0.4 mg PO DAILY@0800 Qty: 30 5RF tizanidine 4 mg tablet 4 mg PO BID Qty: 60 5RF Trelegy Ellipta 100-62.5-25 mcg blister with device 1 inh inhalation Q24H Qty: 60 5RF (DME) nebulizers Misc See Rx Instructions .ROUTE .MEDSUPPLY Qty: 1 0RF Rx Instructions: daily (DME) oxygen concentrator See Rx Instructions .Route .MEDSUPPLY Qty: 1 0RF Rx Instructions: As directed oxygen concentrator 24 hour 3 liters n/c and inogen portable Discharge Orders: Discharge ED (Routine); Ordered 03/09/22 Ordered By: Brenna Garcia Referrals: Venkata Teran, ELECTRICAL CONTROLS TECHNICIAN-C [Primary Care Provider] - 1-3 days Discharge Diet: Advance as tolerated Discharge Activity: Resume usual activity Patient Instructions: Chronic Bronchitis (ED) Coding Level of Care Code ED Arts Therapist for Priscilla Fwd Exam Comprehensive
--- NOTE | 2022-03-08 23:02 | ECG_ITS ---
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 Measurements Intervals [place] Rate: 87 P: 62 [place]: 138 QRS: 9 QRSD: 76 T: 67 QT: 340 QTc: 410 Interpretive Statements SINUS RHYTHM WITH SINUS ARRHYTHMIA POSSIBLE LEFT ATRIAL ENLARGEMENT [-0.1mV P-WAVE IN V1/V2] Compared to ECG 03/28/2021 00:17:36 Sinus tachycardia no longer present Electronically Signed On 03-09-2022 10:55:24 CDT by Marino Parish M.D. [id number]
[2022-03-08 23:09] LABS: Alanine Aminotransferase 21 U/L (0-41); Alkaline Phosphatase 139 IU/L (40-130); Aspartate Amino Transferase 28 U/L (0-40); Blood Urea Nitrogen 8 mg/dL (8-23); Calcium 9.1 mg/dL (8.5-10.5); Carbon Dioxide 24 mmol/L (22-29); Chloride 102 mmol/L (98-107); Globulin 3.1 g/dL (1.3-4.6); Glomerular Filtration Rate 133.6 mL/min (90-130); Glucose 125 mg/dL (65-115); NT Pro B Type Natriuretic Pept 362 pg/mL (0-125); Osmolality Calculated 286 mOsm/kg (285-295); Sodium 138 mmol/L (136-145); Total Bilirubin 0.2 mg/dL (0.15-1.2); Total Protein 7.1 g/dL (6.6-8.7)
[2022-03-08 23:30] VITALS: BP 163/89; PULSE 95; RESP 18; O2SAT 87
[2022-03-08 23:38] LABS: D Dimer 2.33 ug/mIFEU (0-0.59)
--- NOTE | 2022-03-08 23:58 | CTR_ITS ---
PROCEDURE INFORMATION: Exam: CTA Chest With Contrast Exam date and time: 03/09/2022 12:16 AM Age: 71 years old Clinical indication: Abnormal findings; Abnormal diagnostic tests; Elevated d-dimer; Shortness of breath; Prior surgery; Surgery type: Partial gastrectomy; Patient HX: C/O worsening SOB. Elevated d dimer. History of copd and chf. TECHNIQUE: Imaging protocol: Computed tomographic angiography of the chest with contrast. 3D rendering (Not supervised by radiologist): MIP and/or 3D reconstructed images were created by the technologist. Radiation optimization: All CT scans at this facility use at least one of these dose optimization techniques: automated exposure control; mA and/or kV adjustment per patient size (includes targeted exams where dose is matched to clinical indication); or iterative reconstruction. Contrast material: OMNI 350; Contrast volume: 57 ml; Contrast route: INTRAVENOUS (IV); COMPARISON: CT angio chest PE protcl [id number] 03/29/2021 6:53 AM RADIATION DOSE METRICS: Total DLP (mGy-cm): 472.39 FINDINGS: Pulmonary arteries: The pulmonary arteries are adequately opacified for evaluation to the subsegmental level. There is no filling defect to suggest embolism. Aorta: There is mild aortic atherosclerotic disease. Lungs: There is mild upper lung predominant centrilobular emphysema. There is a 12 x 10 mm irregular nodule in the posterosuperior right upper lobe visible on axial series 3, image 13. There is adjacent focal parenchymal architectural distortion on series 3, image 14. There is mild ill-defined opacity in the posteroinferior right lower lobe. There is subtle tree-in-bud opacity in the right lower lobe visible on axial series 3, image 32. There is a 5 mm right upper lobe nodule on series 3, image 22. There is a 5 mm nodule in the right upper lobe on series 3, image 20. That the left lung is clear. Pleural spaces: There is no pleural effusion or pneumothorax. Heart: Heart size is normal. There is no pericardial effusion. There is severe coronary artery calcification. Lymph nodes: There is no mediastinal or hilar lymphadenopathy. Gallbladder and bile ducts: Cholelithiasis is present. There is no sign of cholecystitis. There is ectasia of the common bile duct and central intrahepatic ducts. Bones/joints: Severe degenerative disease at the right shoulder. Left shoulder reversal arthroplasty noted. Mild T4 biconcave compression fracture. Moderate T5 compression fracture. Moderate T6 compression fracture. Severe T7 compression fracture. Moderate T8 compression fracture. Mild T9 compression fracture. Sclerotic bone lesion at T10. Mild compression fracture at T11. Moderate compression fracture at L1. Sclerotic bone lesion in the inferior right scapula. Soft tissues: The extrathoracic soft tissues are unremarkable. CT/CT angio chest PE protcl [id number] IMPRESSION: 1. No pulmonary embolism. 2. Mild opacities in the right lower lobe suggest low-grade infection. 3. Sclerotic bone lesions in the right scapula and T10 vertebra are increased in size since 03/29/2021. Possible metastases. Consider bone scan. 4. Multiple nodules in the right lung measuring up to 12 mm diameter are new since 03/29/2021. For patients at low risk (minimal or absent history of smoking and of other known risk factors), recommend CT Chest at 3-6 months, then consider CT Chest at 18-24 months. For patients at high risk (history of smoking or of other known risk factors), recommend CT Chest at 3-6 months, then CT Chest at 18-24 months. (Reference: Sanaz) 5. Multilevel thoracic and lumbar vertebral compression fractures are stable since 03/29/2021. 6. Incidental findings above. REFERENCES: Sanaz Disla, et al. Guidelines for Management of Incidental Pulmonary Nodules Detected on CT Images: From the Fleischner Society 2017. Radiology. 2017;284(1):228-243.
[2022-03-09] VITALS: BP 165/88; PULSE 90; RESP 20; O2SAT 88
[2022-03-09] MEDS: iohexol 350 mg/mL 100 mL Btl IV (00:17)
[2022-03-09 01:15] VITALS: BP 167/104; PULSE 97; RESP 18; O2SAT 96
[2022-03-09 01:33] VITALS: BP 178/93; PULSE 104; RESP 16; O2SAT 98
[2022-03-09 02:11] VITALS: BP 178/93; PULSE 112; RESP 18; O2SAT 96
== END 2022-03-09 02:15 | disposition home or self-care (01) ==
PROVIDERS: Emergency Provider Emergency Medicine; PCP Nurse Practitioner
DX: J44.1 Chronic obstructive pulmonary disease with (acute) exacerbation (principal); I10 Essential (primary) hypertension; E78.5 Hyperlipidemia, unspecified; F17.210 Nicotine dependence, cigarettes, uncomplicated
CPT/HCPCS: 71045; 71275; 80053; 82805; 83880; 85025; 85378; 93005; 94640; 96374; 99285; J2930; J7611; Q9967

== ENCOUNTER → 2022-07-17 15:55 | Outpatient (BNVA) | payer MEDICARE, MEDICAID, SELFPAY | PROVIDERS: PCP Nurse Practitioner; Visit Provider Nurse Practitioner Family | DX: R10.30 Lower abdominal pain, unspecified (principal) | CPT/HCPCS: 74018; 80053; 85025 ==

== ENCOUNTER → 2022-07-31 15:01 | Outpatient (BNVA) | payer MEDICARE, MEDICAID, SELFPAY | PROVIDERS: PCP Nurse Practitioner; Visit Provider Nurse Practitioner Family | DX: R05.9 Cough, unspecified (principal); J44.1 Chronic obstructive pulmonary disease with (acute) exacerbation; Z11.52 Encounter for screening for COVID-19 | CPT/HCPCS: 87426 ==

== ENCOUNTER → 2022-08-08 14:08 | Outpatient (BNVA) | payer MEDICARE, MEDICAID, SELFPAY | PROVIDERS: PCP Nurse Practitioner; Visit Provider Nurse Practitioner Family | DX: J44.1 Chronic obstructive pulmonary disease with (acute) exacerbation (principal); I10 Essential (primary) hypertension; E78.2 Mixed hyperlipidemia; J44.9 Chronic obstructive pulmonary disease, unspecified; F41.9 Anxiety disorder, unspecified; R39.11 Hesitancy of micturition; M54.16 Radiculopathy, lumbar region | CPT/HCPCS: 71046; 80053; 80061; 84443; 85025 ==

== ENCOUNTER → 2022-08-11 08:31 | Outpatient (BNVA) | payer MEDICARE, MEDICAID, SELFPAY | PROVIDERS: PCP Nurse Practitioner; Visit Provider Nurse Practitioner Family | DX: D64.9 Anemia, unspecified (principal); E61.1 Iron deficiency; J43.2 Centrilobular emphysema | CPT/HCPCS: 83550; 85025 ==

== ENCOUNTER → 2022-08-14 13:39 | Outpatient (BNVA) | payer MEDICARE, MEDICAID, SELFPAY | PROVIDERS: PCP Nurse Practitioner; Visit Provider Nurse Practitioner Family | DX: D64.9 Anemia, unspecified (principal); E61.1 Iron deficiency | CPT/HCPCS: 82270 ==

== ENCOUNTER 2022-08-24 11:56 | Oncology outpatient (recurring) (ONCR) | payer MEDICARE, MEDICAID, SELFPAY ==
[2022-08-24 12:32] LABS: Basophils % 0.3 %; Eosinophils % 0.4 %; Hematocrit 37.9 % (42.0-52.0); Hemoglobin 11.4 g/dL (11.7-16.6); Lymphocytes # 1.2 10^3/uL (0.8-4.8); Mean Corpuscular HGB Conc 30.1 g/dL (30.0-36.0); Mean Corpuscular Volume 69.8 fl (80-94); Monocytes # 2.1 10^3/uL (0.2-0.9); Monocytes % 22.8 %; Neutrophils # 5.75 10^3/uL (1.8-7.7); Neutrophils % 61.8 %; Nucleated Red Blood Cells % 0 %; Platelet Count 225 10^3/cmm (130-400); Red Blood Count 5.43 10^6/uL (4.1-5.3); White Blood Count 9.3 10^3/uL (4.0-10.0)
[2022-08-24 13:15] LABS: Slide Review Slide Review Perform
[2022-08-24 13:49] LABS: Ferritin 30 ng/mL (30-400); Iron 19 ug/dL (59-158); Percent Saturation 4.2 % (20-50); Total Iron Binding Capacity 444 mcg/dl; Unsaturated Iron Binding 425 ug/dL (112-347)
== END 2022-09-04 23:59 | disposition home or self-care (01) ==
PROVIDERS: PCP Nurse Practitioner; Visit Provider Internal Medicine Hematology & Oncology
DX: D50.9 Iron deficiency anemia, unspecified (principal); J44.9 Chronic obstructive pulmonary disease, unspecified; F17.210 Nicotine dependence, cigarettes, uncomplicated; Z99.81 Dependence on supplemental oxygen; R53.1 Weakness; R53.83 Other fatigue; Z79.899 Other long term (current) drug therapy
CPT/HCPCS: 36415; 82728; 83540; 83550; 85025; 99214

== ENCOUNTER 2022-10-12 12:30 | Oncology outpatient (recurring) (ONCR) | payer MEDICARE, MEDICAID, SELFPAY ==
[2022-10-05] MEDS: ferric carboxy (IVPB) 750 MG in sodium chloride 0.9% (100 ml) 100 ML 345 MG IV (12:53)
[2022-10-05 12:55] VITALS: BP 123/74; PULSE 92; RESP 18; TEMP 36.9; O2SAT 100
[2022-10-05 13:20] VITALS: BP 124/74; PULSE 92; RESP 19; TEMP 36.9; O2SAT 98
[2022-10-05 13:34] LABS: Ferritin 42 ng/mL (30-400); Iron 372 ug/dL (59-158); Percent Saturation 70.7 % (20-50); Total Iron Binding Capacity 526 mcg/dl; Unsaturated Iron Binding 154 ug/dL (112-347)
[2022-10-05 13:57] LABS: Basophils % 0.5 %; Eosinophils % 0.7 %; Hematocrit 36.4 % (42.0-52.0); Lymphocytes # 1.1 10^3/uL (0.8-4.8); Mean Corpuscular HGB Conc 30.2 g/dL (30.0-36.0); Mean Corpuscular Hemoglobin 21.9 pg (28.0-34.0); Mean Corpuscular Volume 72.4 fl (80-94); Monocytes # 0.9 10^3/uL (0.2-0.9); Monocytes % 21.6 %; Neutrophils # 2.06 10^3/uL (1.8-7.7); Nucleated Red Blood Cells % 0 %; Platelet Count 207 10^3/cmm (130-400); Red Blood Count 5.03 10^6/uL (4.1-5.3); Red Cell Distribution Width 21.6 % (12.1-15.1); White Blood Count 4.1 10^3/uL (4.0-10.0)
[2022-10-12] MEDS: sodium chloride 0.9% 250 ML 100 ML IV (12:53)
[2022-10-12] MEDS: ferric carboxy (IVPB) 750 MG in sodium chloride 0.9% (100 ml) 100 ML 345 MG IV (12:55)
== END 2022-11-04 23:59 | disposition home or self-care (01) ==
PROVIDERS: PCP Nurse Practitioner; Visit Provider Internal Medicine Hematology & Oncology
DX: Z79.899 Other long term (current) drug therapy (principal); D50.9 Iron deficiency anemia, unspecified
CPT/HCPCS: 82728; 83540; 83550; 85025; 96365; J1439; J7050

== ENCOUNTER 2022-11-21 13:31 | Oncology outpatient (recurring) (ONCR) | payer MEDICARE, MEDICAID, SELFPAY ==
[2022-11-21 14:21] LABS: Basophils % 0.2 %; Eosinophils % 0.5 %; Hematocrit 38.9 % (42.0-52.0); Lymphocytes # 0.6 10^3/uL (0.8-4.8); Lymphocytes % 15.1 %; Mean Corpuscular HGB Conc 30.8 g/dL (30.0-36.0); Mean Corpuscular Hemoglobin 24.5 pg (28.0-34.0); Mean Corpuscular Volume 79.6 fl (80-94); Mean Platelet Volume 10.9 fL (7.4-10.4); Monocytes # 0.9 10^3/uL (0.2-0.9); Monocytes % 21.4 %; Neutrophils # 2.39 10^3/uL (1.8-7.7); Neutrophils % 58.2 %; Nucleated Red Blood Cells % 0 %; Platelet Count 239 10^3/cmm (130-400); Red Blood Count 4.89 10^6/uL (4.1-5.3); Red Cell Distribution Width 22.5 % (12.1-15.1); White Blood Count 4.1 10^3/uL (4.0-10.0)
[2022-11-21 14:41] LABS: Alanine Aminotransferase 17 U/L (0-41); Albumin Level 2.9 g/dL (3.5-5.2); Alkaline Phosphatase 298 U/L (40-130); Aspartate Amino Transferase 29 U/L (0-40); Blood Urea Nitrogen 5 mg/dL (8-23); Calcium 7.8 mg/dL (8.5-10.5); Carbon Dioxide 27 mmol/L (22-29); Globulin 3.5 g/dL (1.3-4.6); Glomerular Filtration Rate 212.7 mL/min (90-130); Glucose 67 mg/dL (65-115); Total Bilirubin 0.3 mg/dL (0.15-1.2); Total Protein 6.4 g/dL (6.6-8.7)
[2022-11-21 14:42] LABS: Potassium 3.9 mmol/L (3.5-5.1)
[2022-11-21 17:33] LABS: 25 Hydroxy Vitamin D 82 ng/mL (30-100); Ferritin 850 ng/mL (30-400); Iron 52 ug/dL (59-158); Percent Saturation 29.5 % (20-50); Total Iron Binding Capacity 176 mcg/dl; Unsaturated Iron Binding 124 ug/dL (112-347)
[2022-11-21 17:36] LABS: Anion Gap 14.9 (5-19); Chloride 98 mmol/L (98-107); Osmolality Calculated 278 mOsm/kg (285-295); Sodium 136 mmol/L (136-145)
== END 2022-12-05 23:59 | disposition home or self-care (01) ==
PROVIDERS: PCP Nurse Practitioner; Visit Provider Internal Medicine Hematology & Oncology
DX: E61.1 Iron deficiency (principal); E55.9 Vitamin D deficiency, unspecified; I10 Essential (primary) hypertension
CPT/HCPCS: 36415; 80053; 82306; 82728; 83540; 83550; 85025

== ENCOUNTER 2022-12-21 10:54 | Emergency (ER) | payer MEDICARE, MEDICAID, SELFPAY ==
[2022-12-21 10:59] VITALS: BP 154/89; PULSE 92; RESP 16; TEMP 36.6; O2SAT 93; BMI 15.8
--- NOTE | 2022-12-21 11:14 | ECG_ITS ---
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 Measurements Intervals [place] Rate: 91 P: -20 [place]: 84 QRS: 68 QRSD: 75 T: 117 QT: 403 QTc: 498 Interpretive Statements SINUS RHYTHM WITH SHORT [place] INTERVAL MINIMAL ST DEPRESSION [0.025+ mV ST DEPRESSION] Compared to ECG 03/08/2022 23:17:42 Short [place] interval now present ST (T wave) deviation now present Sinus arrhythmia no longer present Electronically Signed On 12-21-2022 20:04:29 FRAUD ANALYST by Elbert Santos M.D. [id number]
--- NOTE | 2022-12-21 11:17 | ED_ITS ---
HPI - Altered Mental Status General: Chief Complaint: Altered Mental Status Stated Complaint: AMS Time Seen by Provider: 12/21/22 11:17 History of Present Illness: Mr. Jones is a 72-year-old gentleman with history of COPD with chronic hypoxic respiratory failure presenting to the emergency department for mental status change. Overall he has been declining for a few months with generalized weakness, increasing back pain, and weight loss however over the past 3 days he has had waxing and waning mental status with confusion. This morning he was holding his girlfriend's hand but referring to her as his mother who has been for a long period of time. Intensity symptoms is mod erate. Course is waxing waning. No other specific changes in health, exacerbating, or alleviating factors identified. Onset (ago): day(s) Severity: moderate Consistency of symptoms: Waxing and Waning Associated symptoms: Reports no associated symptoms Review of Systems General: Reports: 10 or more systems reviewed and unremarkable except in HPI and below PFSH ED PFSH: Medical History Acute exacerbation of chronic obstructive airways disease Anemia Anxiety COPD (chronic obstructive pulmonary disease) Dumping syndrome Esophageal stricture Essential hypertension Femur fracture Gastric ulcer History of nonmelanoma skin cancer Hypertension Kyphoscoliosis Malabsorption Microcytic anemia Mixed hyperlipidemia Neuropathy due to herpes zoster Seizure Shoulder arthritis Surgical History H/O esophagogastroduodenoscopy (10/13/20) for food bolus Normal colonoscopy S/P subtotal gastrectomy At age 19, 3 surgeries due to gastric ulcers and adhesions Family History Family/Other Gastric peptic ulcer Other CAD (coronary artery disease) Social History Smoking and tobacco status: current every day smoker cigarettes Packs smoked per day: 0.5 Years cigarettes smoked: 56 [ Other cigarette details: [id number]] Quit status (tobacco): considering quitting Second hand smoke exposure: Yes Smoking risk assessment/counseling performed?: Yes Alcohol intake: never Desire information about alcohol rehabilitation?: No Counseling given: No Desire information about substance/drug rehabilitation?: No Counseling given: No Adopted: No Caregiver/support person: No Lives independently: Yes Household members: significant other Housing: House Marital status: Single service: No Current occupational status: disabled Pets and animals: Yes History of recent travel: No Current gender identity: Male Physical Exam Const: COMMON NORMALS: alert GENERAL APPEARANCE: cooperative, well developed, ill appearing and frail appearing NUTRITIONAL APPEARANCE: cachectic HENMT: COMMON NORMALS: normocephalic and atraumatic HEAD & SCALP: normocephalic and atraumatic THROAT: posterior oropharynx normal Eye: COMMON NORMALS: conjunctivae normal CONJUNCTIVA: Yes conjunctivae normal SCLERA: sclerae normal Neck/C-Spine: COMMON NORMALS: supple GENERAL: Yes trachea midline Resp: EFFORT & INSPECTION: Yes able to speak in complete sentences AUSCULTATION: diminished lung sounds Cardio: COMMON NORMALS: regular rate and regular rhythm RATE: regular rate RHYTHM: regular rhythm GI: COMMON NORMALS: Soft to palpation PALPATION: Yes Soft to palpation and No Tenderness to palpation present (GI) Extremity: GENERAL: Yes normal exam except as noted and No edema Neuro: COMMON NORMALS: moves all extremities SENSORIUM/ORIENTATION: Yes alert and No Orientation impaired Psych: COMMON NORMALS: mental status grossly normal and Normal thought process present THOUGHT PROCESS: Normal thought process present Course Vital Signs: Vital signs: Vital Signs Temperature 98.2 F 12/21/22 15:20 Pulse Rate 95 12/21/22 15:20 Respiratory Rate 18 12/21/22 15:20 Blood Pressure 175/81 12/21/22 15:20 Pulse Oximetry 97 12/21/22 15:20 Oxygen Delivery Me thod 12/21/22 13:29 Oxygen Flow Rate 6 12/21/22 12:46 MDM - Altered Mental Status Medical Decision Making 72-year-old gentleman presenting with episodes of altered mental status as well as generalized illness. Patient is chronically appearing with cachexia, he likely has end-stage COPD. No focal neurologic deficits on my exam the patient is oriented x3. EKG notable for sinus rhythm with normal axis and intervals, no STEMI. Labs with mild leukocytosis, normal hemoglobin and platelet count. Metabolic panel with hypokalemia, overall no acute pathology identified to explain symptoms. ABG with respiratory compensation likely. No UTI. CT demonstrates no acute intracranial pathology, patient does have chronic findings. CT chest abdomen pelvis with likely pneumonia, no other significant acute allergy. Patient feels improved with antibiotics, steroids, potassium replenishment. I recommended admission given the patient's degree of illness which she adamantly declined. Based on my serial assessments the patient has capacity to make medical decisions. Plan to treat for pneumonia with COPD exacerbation. The results of ED evaluation were discussed with the patient including prescriptions and/or symptomatic cares (if applicable) including appropriate and responsible use, followup plan, and return precautions. The patient verbalized understanding and felt safe for discharge. Medical Records I reviewed the patient's medical records. Lab Data I reviewed the patient's lab results. 12/21/22 11:35 12/21/22 11:35 Radiology Impressions Chest/Abdomen/Pelvis CT 12/21/22 11:24 IMPRESSION: 1. Quality of this examination is significantly limited by patient's body habitus. 2. RIGHT lung scar centrally with mild tree-in-bud airspace disease in the RIGHT middle lobe and RIGHT lower lobes. 3. High density material in the stomach of uncertain etiology. No oral contrast was given in radiology. 4. No GI tract obstruction. Evaluation of the abdomen and pelvis is extremely limited as there is very little fat the structures of the abdomen. Foci of free air would be difficult to exclude. Head CT 12/21/22 11:24 IMPRESSION: 1. No acute intracranial hemorrhage or edema. 2. Mild atrophy and small vessel ischemic changes. Laboratory Results WBC 10.6 10^3/uL (4.0-10.0) H 12/21/22 11:35 RBC 5.28 10^6/uL (4.1-5.3) 12/21/22 11:35 Hgb 13.5 g/dL (11.7-16.6) 12/21/22 11:35 Hct 43.5 % (42.0-52.0) 12/21/22 11:35 MCV 82.4 fl (80-94) 12/21/22 11:35 MCH 25.6 pg (28.0-34.0) L 12/21/22 11:35 MCHC 31.0 g/dL (30.0-36.0) 12/21/22 11:35 RDW 18.8 % (12.1-15.1) H 12/21/22 11:35 Plt Count 238 10^3/cmm (130-400) 12/21/22 11:35 MPV 11.4 fL (7.4-10.4) H 12/21/22 11:35 Neut % (Auto) 74.9 % 12/21/22 11:35 Lymph % (Auto) 5.5 % 12/21/22 11:35 Williams % (Auto) 16.9 % 12/21/22 11:35 Eos % (Auto) 0.6 % 12/21/22 11:35 Baso % (Auto) 0.1 % 12/21/22 11:35 Neut # (Auto) 7.98 10^3/uL (1.8-7.7) H 12/21/22 11:35 Lymph # (Auto) 0.6 10^3/uL (0.8-4.8) L 12/21/22 11:35 Williams # (Auto) 1.8 10^3/uL (0.2-0.9) H 12/21/22 11:35 Eos # (Auto) 0.1 10^3/uL (0.0-0.8) 12/21/22 11:35 Baso # (Auto) 0.0 10^3/uL (0.0-0.1) 12/21/22 11:35 Nucleated RBC % (auto) 0 % 12/21/22 11:35 Nucleated RBCs # 0.0 /100WBC 12/21/22 11:35 Specimen Type Arterial 12/21/22 11:33 Sample Site Radial, left 12/21/22 11:33 ABG pH 7.47 (7.35-7.45) H 12/21/22 11:33 ABG pCO2 49.3 mmHg (35-45) H 12/21/22 11:33 ABG pO2 115.0 mmHg (80.0-100.0) H 12/21/22 11:33 ABG HCO3 35.6 mmol/L (22-26) H 12/21/22 11:33 ABG Base Excess 10.3 mmol/L (-2.0-2.0) H 12/21/22 11:33 Jaime Test Pos 12/21/22 11:33 Hematocrit 38.8 % (42-52) L 12/21/22 11:33 O2 Delivery Device Nc 12/21/22 11:33 O2 Liters/Min 6.0 % 12/21/22 11:33 FiO2 45.0 % 12/21/22 11:33 Magnaflux Operator ID Monro 12/21/22 11:33 Sodium 138 mmol/L (136-145) 12/21/22 11:35 Potassium 3.0 mmol/L (3.5-5.1) L 12/21/22 11:35 Chloride 91 mmol/L (98-107) L 12/21/22 11:35 Carbon Dioxide 33 mmol/L (22-29) H 12/21/22 11:35 Anion Gap 17.0 (5-19) 12/21/22 11:35 BUN 7 mg/dL (8-23) L 12/21/22 11:35 Creatinine 0.4 mg/dL (0.7-1.2) L 12/21/22 11:35 GFR Calculation 212.7 mL/min (90-130) H 12/21/22 11:35 Glucose 89 mg/dL (65-115) 12/21/22 11:35 POC Glucose 90 mg/dL (70-110) 12/21/22 11:41 Calculated Osmolality 283 mOsm/kg (285-295) L 12/21/22 11:35 Calcium 8.4 mg/dL (8.5-10.5) L 12/21/22 11:35 Total Bilirubin 0.6 mg/dL (0.15-1.2) 12/21/22 11:35 AST 23 U/L (0-40) 12/21/22 11:35 ALT 18 U/L (0-41) 12/21/22 11:35 Alkaline Phosphatase 266 U/L (40-130) H 12/21/22 11:35 Total Protein 6.8 g/dL (6.6-8.7) 12/21/22 11:35 Albumin 3.1 g/dL (3.5-5.2) L 12/21/22 11:35 Globulin 3.7 g/dL (1.3-4.6) 12/21/22 11:35 TSH 1.99 uIU/mL (0.27-4.20) 12/21/22 11:35 Urine Color Dark yellow (Yellow) 12/21/22 14:14 Urine Appearance Clear (CLEAR) 12/21/22 14:14 Urine pH 7 (5-7) 12/21/22 14:14 Ur Specific [place] 1.010 (1.005-1.030) 12/21/22 14:14 Urine Protein Neg (Negative) 12/21/22 14:14 Urine Glucose (UA) Norm (Normal) 12/21/22 14:14 Urine Ketones 1+ (Negative) H 12/21/22 14:14 Urine Blood Neg (Negative) 12/21/22 14:14 Urine Nitrate Negative (Negative) 12/21/22 14:14 Urine Bilirubin 1+ (Negative) H 12/21/22 14:14 Urine Urobilinogen 8 mg/dL (Negative) H 12/21/22 14:14 Ur Leukocyte Esterase Negative (Negative) 12/21/22 14:14 Discharge Plan Discharge Patient Disposition: Home Clinical Impression: Pneumonia, Acute exacerbation of chronic obstructive pulmonary disease, Chronic respiratory failure with hypoxia and hypercapnia, End stage chronic obstructive pulmonary disease, Cachexia Condition: Stable Prescriptions: New amoxicillin-pot clavulanate 875-125 mg tablet 1 tab PO BID Qty: 20 0RF albuterol sulfate 90 mcg/actuation HFA aerosol inhaler 2 inh inhalation Q4H PRN (Reason: shortness of breath or wheezing) Qty: 8.5 0RF No Action albuterol sulfate 2.5 mg /3 mL (0.083 %) solution for nebulization 2.5 mg INHALATION Q4H Qty: 300 5RF Pulmicort 0.5 mg/2 mL suspension for nebulization 0.5 mg INHALATION BID@08,21 Qty: 120 5RF cholecalciferol (vitamin D3) 125 mcg (5,000 unit) capsule 125 mcg PO DAILY Qty: 30 2RF Perforomist 20 mcg/2 mL solution for nebulization 2 ml INHALATION Q12H Qty: 60 5RF lidocaine 5 % cream 1 applic topical TID PRN (Reason: pain) Qty: 30 2RF Rx Instructions: large area trunk sucralfate [Carafate] 100 mg/mL suspension 5 ml PO BID Qty: 414 0RF furosemide [Lasix] 40 mg tablet 40 mg PO DAILY Qty: 7 0RF pregabalin [Lyrica] 200 mg capsule 200 mg PO BID Qty: 60 2RF amlodipine 5 mg tablet 5 mg PO DAILY Qty: 30 5RF atorvastatin 40 mg tablet 40 mg PO BEDTIME@2100 Qty: 30 5RF clonidine 0.1 mg/24 hr patch weekly 1 patch transdermal .weekly Qty: 4 5RF Rx Instructions: on Fridays Pristiq 100 mg tablet extended release 24 hr 100 mg PO DAILY@0800 Qty: 30 5RF Trelegy Ellipta 100-62.5-25 mcg blister with device 1 inh inhalation Q24H Qty: 60 5RF gabapentin 300 mg capsule 600 mg PO TID@08,13,21 Qty: 180 5RF lisinopril 20 mg tablet 40 mg PO DAILY@0800 Qty: 60 5RF Flomax 0.4 mg capsule 0.4 mg PO DAILY@0800 Qty: 30 5RF famotidine [Pepcid] 40 mg tablet 40 mg PO DAILY Qty: 30 2RF (DME) wheelchair See Rx Instructions .Route .MEDSUPPLY Qty: 1 0RF Rx Instructions: He is 91 pounds need small chair olanzapine [Zyprexa] 2.5 mg tablet 2.5 mg PO DAILY Qty: 30 0RF (DME) nebulizers Misc See Rx Instructions .ROUTE .MEDSUPPLY Qty: 1 0RF Rx Instructions: daily (DME) oxygen concentrator See Rx Instructions .Route .MEDSUPPLY Qty: 1 0RF Rx Instructions: As directed oxygen concentrator 24 hour 3 liters n/c and inogen portable Sleep Aid (diphenhydramine) 50 mg Capsule 50 mg PO TID PRN (Reason: Sleep) Octavio-600 With Vitamin D 600 mg-5 mcg (200 unit) Tablet 1 tab PO DAILY Vitamin B-12 50 mcg Tablet 50 mcg PO DAILY tizanidine 4 mg tablet 4 mg PO BID Discharge Orders: Discharge ED (Routine); Ordered 12/21/22 Ordered By: Real Lee Discharge Diet: Usual diet Discharge Activity: Increase activity as tolerated Patient Instructions: COPD (Chronic Obstructive Pulmonary Disease) (ED), Altered Mental Status (ED), Pneumonia (ED) Activity Restrictions/Additional Instructions: Thank you for visiting the emergency department. You were seen and evaluated for episodes of altered mental status. The exact cause of your symptoms is unclear though may be secondary to pneumonia which will be treated. I recommend admission which you are declining at this time I will prescribe steroids and antibiotics. Please also use your albuterol metered-dose inhaler 2 puffs every 4 hours for 24 hours followed by 2 puffs every 6 hours for 24 hours followed by 2 puffs every 8 hours for 24 hours and then return to the normal schedule. Please follow-up with your primary care provider. Return immediately to the emergency department for worsening symptoms or anything else that you are concerned about and feel needs emergency department evaluation. Coding Level of Care Code ED Door Glass Installer for Priscilla Tavares
--- NOTE | 2022-12-21 11:24 | CT_ITS ---
WS: [id number] CT HEAD NONCONTRAST HISTORY: ams TECHNIQUE: Contiguous axial imaging performed through the brain in 2.5 mm imaging. Bone and soft tiss ue windows. Sagittal and coronal reformats reviewed. All CT scans at [facility] use at least one of these dose optimization techniques: automated exposure control; mA and/or kV adjustment per pa tient size (includes targeted exams where dose is matched to clinical indication); or iterative recon struction. DLP: 1033.18 mGy.cm COMPARISON: None available. No acute intracranial hemorrhage, midline shift or mass effect. Mild atrophy and moderate small vessel ischemic changes. Ventricles: Normal size with no hydrocephalus. No inferior displacement of cerebellar tonsils. Paranasal sinuses: As visualized are clear. Mastoid air cells: Well pneumatized. Calvarium and scalp: Skull is intact with no soft tissue edema or swelling. CT/CT head wo con* [id number] IMPRESSION: 1. No acute intracranial hemorrhage or edema. 2. Mild atrophy and small vessel ischemic changes.
--- NOTE | 2022-12-21 11:24 | CT_ITS ---
WS: [id number] CT CHEST, ABDOMEN AND PELVIS WITH CONTRAST HISTORY: ams, back pain, weight loss, sob TECHNIQUE: Contiguous 5 mm axial imaging performed through the chest, abdomen and pelvis with IV cont rast, oral contrast has not been provided. Coronal and sagittal reformats chest. Coronal and sagittal reformats through the abdomen and pelvis. All CT scans at [facility] use at least one of the se dose optimization techniques: automated exposure control; mA and/or kV adjustment per patient size (includes targeted exams where dose is matched to clinical indication); or iterative reconstruction. CONTRAST: Omnipaque 350; 75 mL IV. DLP: 429.47 mGy.cm COMPARISON: 03/09/[address]: Severe pulmonary hyperinflation with emphysema. Focal areas of scarring and irregular opaci fications in the central RIGHT lung. Bronchial wall thickening in the RIGHT middle lobe and RIGHT low er lobe along with a few areas of tree-in-bud airspace disease. No dense consolidations. Atherosclero sis aorta. No dissection or aneurysm. Heart size is normal. Extensive coronary artery calcifications. No adenopathy. Abdomen CT: Liver and spleen are unremarkable. Poor visualization of pancreas and adrenal glands. The re is no significant fat the organs. Extensive atherosclerosis aorta. Very poor visualizat ion of the GI tract. There is numerous foci of air within the abdomen. Probably all within the GI tra ct. Small foci of extraluminal be difficult to exclude. There is high density material in the stomach. No oral contrast was given. Whether this is an additio nal or foreign body material it is not readily noted. Pelvic CT: Moderately well distended urinary bladder. No free fluid in the pelvis. Increase in thoracic kyphosis. Multiple osteoporotic thoracic and lumbar compression fractures are id entified. CT/CT chest abdpel w/*[id number] IMPRESSION: 1. Quality of this examination is significantly limited by patient's body habi tus. 2. RIGHT lung scar centrally with mild tree-in-bud airspace disease in the RIG HT middle lobe and RIGHT lower lobes. 3. High density material in the stomach of uncertain etiology. No oral contras t was given in radiology. 4. No GI tract obstruction. Evaluation of the abdomen and pelvis is extremely limited as there is very little fat the structures of the abdomen. F oci of free air would be difficult to exclude.
[2022-12-21 11:43] LABS: Glucose Point of Care 90 mg/dL (70-110)
[2022-12-21 11:45] LABS: ABG PCO2 49.3 mmHg (35-45); ABG PH Result 7.47 (7.35-7.45); Arterial Blood Gas Hematocrit 38.8 % (42-52); Base Excess ABG 10.3 mmol/L (-2.0-2.0); Blood Gas Allen Test Pos; Blood Gas Operator Identificat MONRO; Blood Gas Sample Site Radial, left; Blood Gas Sample Type Arterial; HCO3 ABG 35.6 mmol/L (22-26); Oxygen Device NC
[2022-12-21 11:51] LABS: Basophils % 0.1 %; Eosinophils # 0.1 10^3/uL (0.0-0.8); Eosinophils % 0.6 %; Hematocrit 43.5 % (42.0-52.0); Hemoglobin 13.5 g/dL (11.7-16.6); Lymphocytes # 0.6 10^3/uL (0.8-4.8); Lymphocytes % 5.5 %; Mean Corpuscular Hemoglobin 25.6 pg (28.0-34.0); Mean Corpuscular Volume 82.4 fl (80-94); Mean Platelet Volume 11.4 fL (7.4-10.4); Monocytes # 1.8 10^3/uL (0.2-0.9); Monocytes % 16.9 %; Neutrophils # 7.98 10^3/uL (1.8-7.7); Neutrophils % 74.9 %; Nucleated Red Blood Cells % 0 %; Platelet Count 238 10^3/cmm (130-400); Red Blood Count 5.28 10^6/uL (4.1-5.3); Red Cell Distribution Width 18.8 % (12.1-15.1); White Blood Count 10.6 10^3/uL (4.0-10.0)
[2022-12-21 12:26] LABS: Alanine Aminotransferase 18 U/L (0-41); Albumin Level 3.1 g/dL (3.5-5.2); Alkaline Phosphatase 266 U/L (40-130); Aspartate Amino Transferase 23 U/L (0-40); Blood Urea Nitrogen 7 mg/dL (8-23); Calcium 8.4 mg/dL (8.5-10.5); Carbon Dioxide 33 mmol/L (22-29); Chloride 91 mmol/L (98-107); Globulin 3.7 g/dL (1.3-4.6); Glomerular Filtration Rate 212.7 mL/min (90-130); Glucose 89 mg/dL (65-115); Osmolality Calculated 283 mOsm/kg (285-295); Sodium 138 mmol/L (136-145); Thyroid Stimulating Hormone 1.99 uIU/mL (0.27-4.20); Total Bilirubin 0.6 mg/dL (0.15-1.2); Total Protein 6.8 g/dL (6.6-8.7)
[2022-12-21] MEDS: potassium chloride ER 20 mEq Tablet 60 MEQ PO (12:44)
[2022-12-21 12:46] VITALS: BP 146/104; PULSE 102; RESP 16; O2SAT 99
[2022-12-21] MEDS: iohexol 350 mg/mL 500 mL Btl (per mL) IV (13:20)
[2022-12-21 13:29] VITALS: BP 172/90; PULSE 90; RESP 18; O2SAT 96
[2022-12-21 14:23] LABS: Add Urine Microscopic? NO; Charge for UA Resulting for Rev
[2022-12-21 14:39] LABS: Bilirubin Urine 1+ (Negative); Blood Urine Neg (Negative); Glucose Urine UA Norm (Normal); Leukocyte Esterase Urine Negative (Negative); Nitrate Urine Negative (Negative); Protein Urine Neg (Negative); Urine Appearance Clear (CLEAR); Urine Color Dark Yellow (Yellow); Urobilinogen Urine 8 mg/dL (Negative); pH Urine 7 (5-7)
[2022-12-21 14:40] LABS: Ketones Urine 1+ (Negative)
[2022-12-21] MEDS: amoxicillin-clav 875-125 mg Tablet 1 TAB PO (15:02)
[2022-12-21 15:20] VITALS: BP 175/81; PULSE 95; RESP 18; TEMP 36.8; O2SAT 97
== END 2022-12-21 15:22 | disposition home or self-care (01) ==
PROVIDERS: Emergency Provider Emergency Medicine
DX: R41.82 Altered mental status, unspecified (principal); R64 Cachexia; J18.9 Pneumonia, unspecified organism; J96.12 Chronic respiratory failure with hypercapnia; J96.11 Chronic respiratory failure with hypoxia; J44.1 Chronic obstructive pulmonary disease with (acute) exacerbation; F17.210 Nicotine dependence, cigarettes, uncomplicated; E87.6 Hypokalemia; I10 Essential (primary) hypertension; E78.5 Hyperlipidemia, unspecified
CPT/HCPCS: 36416; 36600; 70450; 71260; 74177; 80053; 81003; 82803; 82962; 84443; 85025; 93005; 96374; 99285; J2930; Q9967